=== PATIENT | female | born 1950 | race Caucasian/White ===

== ENCOUNTER → 2017-12-11 | Outpatient (CLI) | payer MEDICARE ==
--- NOTE | 2017-12-11 09:19 | Diagnostic Imaging Report ---
PROCEDURE:ABDOMINAL ULTRASOUND COMPARISON:None. INDICATIONS:Abdomen Pain FINDINGS: Liver: 14.1 cm. Increased hepatic parenchymal echogenicity. No focal mass. Main portal vein: 0.8 cm. Hepatopedal flow. Gallbladder: No echogenic calculi, gallbladder wall thickening, or pericholecystic fluid. A 0.4 cm echogenic focus is noted in the anterior gallbladder wall that is non-shadowing and non-mobile. Common Bile Duct: 3.0 mm. No echogenic filling defect. Sonographic Laurent's sign: Negative. Right kidney: 9.4 cm. No solid or cystic mass, echogenic calculi, or hydronephrosis. Normal parenchymal echogenicity. Left kidney: 8.7 cm. No solid or cystic mass, echogenic calculi, or hydronephrosis. Normal parenchymal echogenicity. Focal well-circumscribed 2.5 x 2.3 x 2.3 cm anechoic cyst is present in the left kidney. Spleen: 7.9 cm. No focal mass. The pancreas and inferior vena cava were insufficiently visualized for comment secondary to overlying bowel gas. Inferior vena cava: Normal. Ascites: None. CONCLUSION: 1. No acute sonographic abnormality. 2. Gallbladder polyp. Consultation with general surgery may provide additional information for further management. 3. Hepatic steatosis. Dictated by: King Moss M.D. on 12/11/2017 at 9:21 Electronically approved by: King Moss M.D. on 12/11/2017 at 9:21
== END ==
LOC: US 08:00
PROVIDERS: ATTEND Internal Medicine
DX: Z12.31 Encounter for screening mammogram for malignant neoplasm of breast (principal); R10.9 Unspecified abdominal pain
CPT/HCPCS: 76700; 77067

== ENCOUNTER 2018-09-26 14:56 | Inpatient (IN) | payer MEDICARE ==
[~2018-09-26] VITALS: Ht 139.7 cm; Wt 45.9 kg
[2018-09-26] MEDS ORDERED: SODIUM CHLORIDE 0.9% 1000ML 1,000 ML IV STA (14:57)
--- OUTSIDE RECORDS SUMMARY | 2018-09-26 14:58 | XMS REPORT ---
Author Author [facility] Address Unknown Phone Unavailable Care Team Providers Care Paying Teller Name Role Phone Capri ROMANO Unavailable Unavailable Problems This patient has no known problems. Allergies, Adverse Reactions, Alerts This patient has no known allergies or adverse reactions. Medications This patient has no known medications. Results Test Description Test Time Test Comments Text Results Atomic Results Result Comments US ABDOMEN COMPLETE [place] [address] Patient Name: BRYAN BOOTH MR #: [id number] : 1950 Age/Sex: 67/F Req #: [id number] [facility] Physician: Ordered by: BAO ROMANO MD Report #: [id number] Location: US Room/Bed: Procedure: [id number] US/US ABDOMEN COMPLETE Exam Date: Exam Time: REPORT STATUS: Signed PROCEDURE: ABDOMINAL ULTRASOUND COMPARISON: None. INDICATIONS: Abdomen Pain FINDINGS: Liver: 14.1 cm. Increased hepatic parenchymal echogenicity. No focal mass. Main portal vein: 0.8 cm. Hepatopedal flow. Gallblad david: No echogenic calculi, gallbladder wall thickening, or pericholecystic fluid. A 0.4 cm echogenic focus is noted in the anterior gallbladder wall that is non-shadowing and non-mobile. Common Bile Duct: 3.0 mm. No echogenic filling defect. Sonographic Laurent's sign: Negative. Right kidney: 9.4 cm. No solid or cystic mass, echogenic calculi, or hydronephrosis. Normal parenchymal echogenicity. Left kidney: 8.7 cm. No solid or cystic mass, echogenic calculi, or hydronephrosis. Normal parenchymal echogenicity. Focal well-circumscribed 2.5 x 2.3 x 2.3 cm anechoic cyst is present in the left kidney. Spleen: 7.9 cm. No focal mass. The pancreas and inferior vena cava were insufficiently visualized for comment secondary to overlying bowel gas. Inferior vena cava: Normal. Ascites: None. CONCLUSION: 1. No acute sonographic abnormality. 2. Gallbladder polyp. Consultation with general surgery may provide additional information for fu rther management. 3. Hepatic steatosis. Dictated by: Char Angel M.D. on 12/11/2017 at 9:21 Electronically approved by: Char Angel M.D. on 12/11/2017 at 9:21 Dictated By: CHAR ANGEL MD 0 Transcribed By: MARIA G on 12/11/17920 COPY TO: BAO ROMANO MD MAMMOGRAPHY DIGITAL SCR BILAT [place] [address] Patient Name: BRYAN BOOTH MR #: [id number] : 1950 Age/Sex: 67/F Req #: [id number] Adm Physician: Ordered by: BAO ROMANO MD Report #: [id number] Location: US Room/Bed: Procedure: [id number] MG/MAMMOGRAPHY DIGITAL SCR BILAT Exam Date: 12/11/17 Exam Time: 904 REPORT STATUS: Signed #[id number] - [id number] #BILATERAL DIGITAL SCREENING MAMMOGRAM WITH CAD: 12/11/2017 CLINICAL: Routine screening. No prior exams were available for comparison. Current study contains 4 films. There are scattered fibroglandular elements in both breasts. Current study was also evaluated with a Computer Aided Detection (CAD) system. There are benign vascular calcifications and calcifications in both breasts. No significant masses, calcifications, or other findings are seen in either breast. IMPRESSION: BENIGN There is no mammographic evidence of malignancy. A 1 year screening mammogram is recommended. The patient will be notified by letter of the results. Cecilia varela/camlio:12/28/2017 07:29:56 Publicity Agent: Martha SEGAL)(M), [facility] letter sent: Normal Exam Mammogram BI-RADS: 2 Benign Dictated By: CECILIA HAGEN DO 8 Transcribed By: CAMILO on 12/28/17728 COPY TO: BAO ROMANO MD
[2018-09-26 16:02] LABS: BASOPHILS % 0.2 % (0.0-1.0); EOSINOPHILS # (AUTO) 0.1 (0.0-0.4); EOSINOPHILS % 0.5 % (0.0-6.0); HEMATOCRIT 40.7 % (34.2-44.1); HEMOGLOBIN 13.2 g/dL (12.0-16.0); LYMPHOCYTES # (AUTO) 2.6 (1.0-3.2); MEAN CORPUSCULAR HGB CONC 32.4 g/dL (31-35); MEAN CORPUSCULAR VOLUME 77.1 fL (81-99); MONOCYTES # (AUTO) 1.1 (0.2-0.8); MONOCYTES % 8.7 % (4.4-11.3); NEUTROPHILS % 70.1 % (38.7-80.0); PLATELET COUNT 337 x10e3/uL (140-360); RED BLOOD COUNT 5.28 x10e6/uL (3.6-5.1); RED CELL DISTRIBUTION WIDTH 15.9 % (11.7-14.4)
[2018-09-26 16:11] LABS: CLARITY,URINE SL CLOUDY (CLEAR); LEUKOCYTE ESTERASE ,URINE TRACE (NEGATIVE); NITRITE,URINE NEGATIVE (NEGATIVE)
[2018-09-26 16:12] LABS: BILIRUBIN,URINE 2+ (NEGATIVE); COLOR,URINE STRAW (YELLOW); KETONES,URINE TRACE (NEGATIVE); PROTEIN,URINE DIPSTICK 1+ (NEGATIVE); URINE UROBILINOGEN 4 mg/dL (0.2 - 1)
[2018-09-26 16:17] LABS: ALANINE AMINOTRANSFERASE 19 IU/L (0-55); ALBUMIN/GLOBULIN RATIO 0.8 (0.8-2.0); ALKALINE PHOSPHATASE 98 IU/L (40-150); AMYLASE 57 U/L (25-125); BLOOD UREA NITROGEN 11 mg/dL (7-26); BUN/CREATININE RATIO 12 (6-25); CALCIUM 9.6 mg/dL (8.4-10.2); CARBON DIOXIDE 30 mmol/L (22-29); CHLORIDE 89 mmol/L (98-107); CREATINE KINASE 28 IU/L (29-168); CREATININE, SERUM 0.92 mg/dL (0.57-1.11); EST GLOMERULAR FILTRATION RATE > 60 ML/MIN (60-); GLUCOSE 94 mg/dL (74-118); LIPASE 39 U/L (8-78); SODIUM 132 mmol/L (136-145)
[2018-09-26 16:23] LABS: MAGNESIUM 1.1 MG/DL (1.3-2.1)
[2018-09-26 16:25] LABS: BACTERIA,URINE MANY /HPF
[2018-09-26 16:26] LABS: EPITHELIAL CELLS,URINE FEW /LPF; TRANSITIONAL EPI CELLS,URINE MODERATE
--- NOTE | 2018-09-26 16:26 | NUR ---
ALVINA FROM LAB CALLED TO REPORT CRITICAL MAG LEVEL 1.1. INFORMED DR. HAWKINS WELL LETY DAS PRIMARY NURSE.
[2018-09-26] MEDS ORDERED: MAGNESIUM SULF 1GRAM/DEXTROSE 100 ML IV ONE (16:30)
[2018-09-26 16:33] LABS: B-TYPE NATRIURETIC PEPTIDE2 23.2 pg/mL (0-100)
--- NOTE | 2018-09-26 16:35 | Diagnostic Imaging Report ---
EXAMINATION: CHEST SINGLE (PORTABLE) INDICATION: Weakness. COMPARISON: None FINDINGS: TUBES and LINES: Left-sided pacemaker with leads overlying the right atrium and right ventricle. Overlying EKG leads. LUNGS: Lungs are moderately inflated. There is mild central vascular congestion without evidence of pulmonary edema. No evidence of pneumonia. PLEURA: No pleural effusion or pneumothorax. HEART AND MEDIASTINUM: The cardiomediastinal silhouette is unremarkable. BONES AND SOFT TISSUES: No acute osseous abnormality. UPPER ABDOMEN: No free air under the diaphragm. IMPRESSION: No acute radiographic abnormality. Mild central vascular congestion without evidence of pulmonary edema. Signed by: Dr. Thiago Villanueva MD on 09/26/2018 4:31 PM
[2018-09-26] MEDS ORDERED: ISOSORBIDE MONO10 MG PO (20:02)
[2018-09-26] MEDS ORDERED: VENLAFAXINE H37.5 M1 PO (20:02)
[2018-09-26] MEDS ORDERED: ELIQUIS PO (20:02)
[2018-09-26] MEDS ORDERED: LOSARTAN POTAS100 MG PO (20:02)
[2018-09-26] MEDS ORDERED: GABAPENTIN100 MG PO (20:02)
[2018-09-26] MEDS ORDERED: LISINOPRIL10 MG PO (20:02)
[2018-09-26] MEDS ORDERED: ATORVASTATIN CA20 MG PO (20:02)
[2018-09-26 22:28] VITALS: BP 162/70
[2018-09-26 22:30] VITALS: BP 162/70
--- NOTE | 2018-09-26 22:30 | NUR ---
patient is a new admit that arrived via stretcher. patient is alert and oriented. patient has been assisted into the bed, bed is in the lowest position and call gerber is within reach. will continue to monitor patient.
--- NOTE | 2018-09-27 01:00 | NUR ---
Nba Rosenthal notified of routine consultation.
[2018-09-27 04:00] VITALS: BP 137/61
--- NOTE | 2018-09-27 05:42 | NUR ---
Dr Rodrick Del Toro notified of routine consultation.
--- NOTE | 2018-09-27 06:21 | NUR ---
wound care consult has been initiated for patient due to stage 2 over sacrum.
[2018-09-27 07:43] VITALS: BP 135/63
--- NOTE | 2018-09-27 08:24 | NUR ---
Shift reports and rounds completed.V/S reviewed. Pt stable and no complaints or concerns at this time.
[2018-09-27 08:30] VITALS: BP 135/63
--- NOTE | 2018-09-27 10:33 | NUR ---
MD Dr German on unit : order for D5ns at 100cc/hr to start, WC consult. Pt picked up for MBS.
--- NOTE | 2018-09-27 10:38 | NUR ---
Called notify Wound care of consult
--- NOTE | 2018-09-27 10:46 | NUR ---
Dr Ennis notified of consult for PPM ( office spoke with Bárbara)
--- NOTE | 2018-09-27 10:50 | NUR ---
Dr Mensah notified by phone of consult for AMS Dr Rodriguez notified per office (spoke with Geoffrey) consult for poor nutritional intake
--- NOTE | 2018-09-27 11:07 | NUR ---
Speech recommending to keep patient NPO at this time. Pt current order for NPO. IV fluids to start
[2018-09-27 11:44] VITALS: BP 121/57
[2018-09-27] MEDS: DEXTROSE 5%/0.9% SOD CHL 1,000 ML IV SCH ×2 (12:00→21:17)
[2018-09-27] MEDS: CEFTRIAXONE SOD 1 GM/NS 50 ML 50 ML IV SCH ×2 (12:00→22:53)
--- NOTE | 2018-09-27 12:34 | NUR ---
1200 IV flushed and IV infiltrated. 1215 New IV inserted to left wrist 1220 IV fluids and IV ABT started to new IV Left wrist
--- NOTE | 2018-09-27 12:48 | History and Physical ---
She is a 68-year-old female patient who presented to me by the spouse and caregiver as the patient was not able to eat properly. Every time the patient tried to eat, the patient started choking and started coughing and having respiratory distress. The patient is having very poor nutrition, and her blood sugars on multiple occasions dropped down to the 40s and 60s. The patient started having decubitus ulcer. The patient has had multiple hospital admissions after her stroke. The patient had a recent permanent pacemaker placed. The patient is very malnourished, contracted and debilitated. SIGNIFICANT MEDICAL HISTORY: Diabetes mellitus, hypertension, hyperlipidemia, thyroid disease. Massive stroke in June 2018 with left-sided paresis and dysphagia. Severe GERD and UTI. PAST SURGICAL HISTORY: Urethral sling and cataract surgery. The patient had a recent permanent pacemaker placed. SOCIAL HISTORY: Denies smoking. Denies using alcohol. FAMILY HISTORY: Hypertension, hyperlipidemia. MEDICATIONS: See from the list. REVIEW OF SYSTEMS: As per history of present illness. The patient has severe weakness and difficulty eating. PHYSICAL EXAMINATION GENERAL: She is a middle-aged female patient, very cachectic and malnourished. VITAL SIGNS: Temperature 99, pulse rate 88, respirations 16, blood pressure 110/70. HEENT: Normocephalic, atraumatic. JVD absent. LUNGS: Bilateral equal air entry, no rales, no rhonchi. HEART: S1 and S2, regular. A systolic murmur is present. ABDOMEN: Soft. Bowel sounds are present. NEUROLOGIC: Nonfocal. No neurologic deficit. The patient has advanced left hemiplegia. SKIN: The patient has stage-1 sacral decubitus ulcer. LABORATORY AND INVESTIGATIONS: The patient has elevated white blood count at 13,000. Urine is showing many bacteria. Bilirubin positive. Protein positive. ADMITTING IMPRESSION AND DIAGNOSES 1. Severe protein-calorie malnutrition. 2. Oropharyngeal dysphagia secondary to cerebrovascular accident. 3. Dehydration. 4. Hypomagnesemia. 5. Cerebrovascular accident. 6. Urinary tract infection. 7. Diabetes mellitus. 8. Hypertension. 9. Permanent pacemaker placement. 10. Stage-1 sacral decubitus ulcer secondary to malnutrition. PLAN: The patient will be admitted with the above diagnoses. We will treat the patient with IV fluids and IV antibiotics. Will do modified barium swallow, speech and PT/OT eval. Possibly will be needing a PEG tube placement. Will consult GI. Job#: [id number] MH
--- NOTE | 2018-09-27 13:22 | NUR ---
Call from . Dr Rodriguez: Consent for PEG tube placement. Will do tomorrow since had MBS this am and has barium in stomach.
--- NOTE | 2018-09-27 13:29 | NUR ---
Dr Mensah on unit to see patient
--- NOTE | 2018-09-27 13:57 | Diagnostic Imaging Report ---
EXAM: Modified barium swallow with Speech Pathologist INDICATION: ^poor oral intake ^[id number] ^1030 COMPARISON: None available. RADIATION DOSE: Fluoroscopy Time: 2.3 min Dose (Kerma) Area Product: 2.43 Gycm2 Air Kerma (AK) value has been reviewed. It is below the limits set by the Radiation Protocol Committee (RPC) committee. FINDINGS: See impression IMPRESSION: Silent laryngeal penetration with all consistencies. Silent aspiration with thin, nectar, and honey thick liquids. Refer to speech pathology report for further details and recommendations. Signed by: Dr. Craig Perez M.D. on 09/27/2018 1:54 PM
--- NOTE | 2018-09-27 14:12 | NUR ---
Straight cath x1 to obtain urine specimen per Dr Mensah. 75cc of dark yellow, urine with sediment. Tolerated well. Due to void
[2018-09-27 14:17] VITALS: BP 121/57
--- NOTE | 2018-09-27 14:47 | NUR ---
SOCIAL WORK INITIAL ASSESSMENT Hand Turner to bedside to discuss plan of care with patient/family. CM/SW role and care transitions discussed. Anticipated discharge plan discussed along with duration of care. CM/SW discussed patients right to make decisions in care. CM/SW work hours given. Patient lives: IN UPSTAIRS APARTMENT WITH Admit/Transfer: VIA ED POA/Emergency contact: BETZY Current/Previous Home Health: STATES A NURSE COMES TWO TIMES A WEEK PCP/Follow-up Care: MCKINLEY Current/Previous DME: [employer] Other Services: NONE Employment Status: HOUSEWIFE Areas of Concerns: TIRED AND LETHARGIC Referral Needs: NONE Education Needs: NONE IMM/MONTES given and signed (if applicable): UPON ADMISSION Goal for discharge: RETURN HOME CM/SW left business card at the bedside with contact information. Name and number was also written on the patients whiteboard. Patient verbalized understanding of discussion. CM will follow-up with ongoing discharge and transition of care needs.
[2018-09-27] MEDS: GABAPENTIN 100 MG CAP PO SCH ×2 (15:00→21:00)
--- NOTE | 2018-09-27 15:44 | NUR ---
WOUND CARE CONSULTATION - INITIAL EVALUATION Patient admitted for Hypomagnesemia from home to ER. WC Consulted for Possible Stage II PU of Sacrum. HX: HTN, DM type 2, Hyperglycemia, Thyroid Disease, Stroke with Left Sided Weakness. LABS: WBC12.89 HGB13.2 HCT40.7 NEUT%70.1 ALB3.0 GLU94 Ramos Score 14 Alternating Pressure Air Mattress in Place Mod PUP Active. PATIENT VISIT: -Patient in bed calm, pleasant. - at bedside and very involved with her care. -Head To Toe Assessment performed and no pressure ulcers were identified. -Diapered -Perirectal Rash noted consistent with yeast with mild rubor. Currently using Calazime Barrier Cream. RECOMMENDATION: Perirectal & Perineum Rash- Yeast - Wash area with mild soap and water and pat dry thoroughly - Apply Nystatin Cream q12h and PRN Soiling. Thank you for consulting with Wound Care. Addendum: 09/27/18 at 1553 by Kristofer Montoya RN Amended: Links added.
[2018-09-27 16:21] LABS: CHOL/HDL RATIO 2.5 (3.0-3.6)
[2018-09-27 16:42] LABS: THYROID STIMULATING HORMONE 0.056 uIU/mL (0.350-4.940)
[2018-09-27 16:56] LABS: FOLATE 10.6 ng/mL (7.0-15.4)
--- NOTE | 2018-09-27 17:17 | Consultation ---
DATE OF CONSULTATION: CARDIOLOGY CONSULTATION REFERRING PHYSICIAN: Dr. Nito German. REASON FOR CONSULTATION: Management of cardiovascular disease. HISTORY OF PRESENT ILLNESS: Ms. Fernández is a 68-year-old woman with a history of hypertension, dyslipidemia, prior CVA with residual left-sided paralysis, who presents with significant weight loss, cough following attempts to eat, difficulty swallowing, issues following stroke. She is status post pacemaker placement. She has lost over 30 pounds of weight in the past several months, and she is being admitted with hypomagnesemia, electrolyte derangements, failure to thrive. She has been consulted for possible PEG-tube placement. Neurology has been consulted to further evaluate patient's CVA and dysphagia, Speech Pathology evaluating with a barium swallow confirming aspiration to all consistencies of p.o. intake. She denies any chest pain or shortness of breath currently, has no other complaints. REVIEW OF SYSTEMS: A 12-system review is negative except for as noted above. ALLERGIES: NO KNOWN DRUG ALLERGIES. PAST MEDICAL HISTORY: As per HPI. SOCIAL HISTORY: No active smoking, alcohol or drugs. Is accompanied by . Adequate social support. FAMILY HISTORY: Noncontributory. PHYSICAL EXAMINATION VITAL SIGNS: Temperature 98.8, heart rate 70, blood pressure 121/57, respiratory rate 17, O2 sat 99%. GENERAL: No acute distress. Alert. NECK: No JVD. CHEST: Clear to auscultation. CARDIOVASCULAR: Regular rate and rhythm. Normal S1 and S2. No S3 or S4. Systolic ejection murmur 1/6. Pacemaker pocket site covered with Band-Aids. ABDOMEN: Soft, nontender. EXTREMITIES: No edema. Warm distal extremities. Left-sided paresis noted. CARDIOVASCULAR MEDICATIONS: Reviewed. 1. Ceftriaxone. 2. Atorvastatin 20 mg daily. 3. Gabapentin 100 mg t.i.d. 4. Lisinopril 20 mg daily. 5. Isosorbide mononitrate 10 mg daily. 6. Was on losartan, which has been discontinued. 7. Venlafaxine 37.5 mg daily. STUDIES: Sodium 132, potassium 4, chloride 89, bicarbonate 20, BUN 11, creatinine 0.9, glucose 94. White blood cells 12.8, hemoglobin 13.2, platelets 237. AST 21, ALT 19. ASSESSMENT 1. Failure to thrive. 2. Hypomagnesemia. 3. Patient is status post permanent pacemaker placement. 4. Hypertension. 5. Dyslipidemia. 6. History of cerebrovascular accident with residual paresis and dysphagia. RECOMMENDATIONS: Given dysphagia and aspiration, antibiotic coverage and proceeding with PEG-tube placement is being considered and seems reasonable. Patient has low to moderate risk for adverse cardiovascular outcomes with PEG-tube placement. Continue current cardiovascular medications, resume antiplatelet therapy once post procedure if no bleeding issues. Will obtain echocardiogram and follow closely. Thank you, Dr. German, for the opportunity to participate in the care of Ms. Fernández. Job#: [id number]
[2018-09-27] MEDS: NYSTATIN 100,000 UNITS/GM CRM 30GM TUBE TOP SCH (17:27)
--- NOTE | 2018-09-27 17:32 | Consultation ---
DATE OF CONSULTATION: September 27, 2018 NEUROLOGY CONSULTATION HISTORY OF PRESENT ILLNESS: Ms. Fernández is a 68-year-old right hand dominant woman with multiple vascular risk factors, admitted to [facility] on September 26, 2018, with decreased oral intake, weight loss, hypoglycemia, and hypomagnesemia. A neurology consultation is requested to evaluate for encephalopathy as well as prior stroke. According to the patient's family members, Ms. Fernández has not appeared confused or disoriented over the past several days. Her does report the patient is worried and scared due to being admitted once again to the hospital. According to the patient's family members, at baseline Ms. Fernández is only oriented to person and place. Ms. Fernández had a stroke in June 2018. Residual deficits from the stroke include dysarthria, right hemiplegia, gait impairment secondary to right hemiplegia, and dysphagia. Ms. Fernández does not report a visual field cut or other disturbance, hemihypesthesia, dizziness, or confusion. Initially, Ms. Fernández was hospitalized at [facility] for her stroke for approximately 1 week. She was subsequently discharged to home. Some time later, the patient was re-admitted to [facility] for a implantation of a loop recorder. Once the loop recorder was implanted, the patient was discharged to home. According to the patient's , there was a malfunction in the loop recorder. Approximately 1 week ago, the patient was re-admitted to [facility] for pacemaker placement. After 2 days, the patient was discharged to home. Since being discharged to home for her stroke in June 2018, the patient has received only 2 to 3 sessions of both physical and occupational therapy with each session lasting only 15 to 20 minutes each. The patient was never evaluated or treated by a speech therapist through [facility]. Ms. Fernández does not report spending any time in either a penitentiary facility or an inpatient rehabilitation facility following her stroke in June 2018. REVIEW OF SYSTEMS: Decreased oral intake, dysphagia, urinary frequency and urgency, confusion, dysarthria, left facial weakness, weakness of the left arm and left leg, impairment of balance and gait. Otherwise, the 12 point review of systems is negative. PAST MEDICAL HISTORY: Hypertension, hyperlipidemia, diabetes mellitus, heart block, thyroid disease, peptic ulcer disease, abdominal hernia, depression, and stroke with deficits as detailed in the history of present illness. PAST SURGICAL HISTORY: Partial resection of the small intestine, pacemaker placement. PAST HOSPITALIZATIONS: Surgeries/procedures as listed, stroke. FAMILY MEDICAL HISTORY: The patient's paternal and maternal grandparents are . Their medical histories are unknown. The patient's father is from complications of Alzheimer's disease. He had melanoma and lymphoma as well. The patient's mother is alive and has hypertension. Ms. Fernández had 4 siblings, 2 brothers and 2 sisters. Both brothers are alive. One brother has heart disease and is status post pacemaker placement. The second brother is healthy. One sister is alive and healthy. The second sister is from bone cancer. Ms. Fernández had 2 children, a son and a daughter, both of whom are . The son in a motor vehicle accident. The daughter from an opioid overdose. SOCIAL HISTORY: Ms. Fernández is . She is not employed. The patient does not report current or prior tobacco, alcohol, or recreational drug use. HOME MEDICATIONS: Eliquis 2.5 mg by mouth twice daily, isosorbide mononitrate 10 mg by mouth daily, lisinopril 10 mg by mouth daily, losartan 100 mg by mouth daily, atorvastatin 20 mg by mouth daily, gabapentin 100 mg by mouth three times daily, venlafaxine 37.5 mg by mouth daily. ALLERGIES: NO KNOWN DRUG ALLERGIES. NO KNOWN FOOD ALLERGIES. NO KNOWN ALLERGIES TO LATEX. NO KNOWN ALLERGIES TO IODINE OR OTHER CONTRAST MATERIALS. PHYSICAL EXAMINATION: VITAL SIGNS: Height 55 inches, weight 96 pounds. BMI 22.3 kg per meter squared. Blood pressure 121/57 mmHg. Pulse 70 beats per minute. Respiratory rate 17 breaths per minute. Oxygen saturation 99% on room air. GENERAL: The patient is awake and alert, does not appear distressed. Thin. Sallow complexion. HEENT: Normocephalic, atraumatic. Pupils are equal, round, and reactive to light. Moist mucous membranes. NECK: Supple. No appreciable thyromegaly. No appreciable carotid bruits. CARDIOVASCULAR: S1, S2, regular rate and rhythm. No murmurs, rubs, or gallops. RESPIRATORY: Clear to auscultation bilaterally. No wheezes, rhonchi, or rales. EXTREMITIES: The skin is warm and dry. No clubbing, cyanosis, or edema. The posterior tibial and dorsalis pedis pulses are 1+ and symmetric. SKIN: No rashes or lesions. NEUROLOGIC: Memory/Attention: The patient is awake and alert, oriented to person, place, not time, and minimally to situation. Cranial Nerves: Cranial nerve 1--Not tested. Cranial nerve 2, 3, 4, and 6--Pupils are equal and round, react briskly to light (from 4 mm to 2 mm). Extraocular movements intact. No nystagmus. Cranial nerve 5--Sensation to light touch is intact in the bilateral V1 through V3 distributions. Strength of the temporalis and masseter muscles is within normal limits. Cranial nerve 7--The face is asymmetric on the left as are all facial movements. There is moderate left central facial weakness. Cranial nerve 8--Hearing is intact to finger rub bilaterally. Cranial nerve 9, 10--The soft palate elevates equally and symmetrically. Cranial nerve 12--The tongue protrudes midline and moves symmetrically from side to side. Strength: Bulk is diminished throughout. The flexors in the right arm are 4+/5. The extensors in the right arm are 4/5. The flexors in the right leg are 4/5. The extensors in the right leg are 4+/5. The left arm is plegic. The left leg is 2/5. Tone is increased in the left arm and left leg. DTRs: Deep tendon reflexes are 2+ at the right tricep, bicep, brachioradialis, patella, and Achilles. Deep tendon reflexes are 3+ at the left tricep, bicep, brachioradialis, patella, and Achilles. Plantar responses are flexor on the right, extensor on the left. Sensation: Sensation is intact to light touch in both arms and both legs. Cerebellar: Oaeprw-mqnf-xjauje and heel-schrader movements are intact without dysmetria or other impairment on the right. Both elvvsh-uvaq-hiavjf and heel-schrader movements are impaired on the left, but within the bounds of paresis. Gait: Deferred. Speech: Spontaneous speech is mildly to moderately dysarthric without aphasia. Repetition is intact. Involuntary Movements: None. Pronator Drift: As per motor exam. LABORATORY DATA: The patient's comprehensive metabolic panel is significant for a sodium of 132, chloride of 89, carbon dioxide of 30, anion gap of 17.0, magnesium of 1.1, albumin of 3.0, and globulin of 3.9. Lactic acid 16.4. A repeat magnesium level is 2.0. B-natriuretic peptide 23.2. Amylase 57. Lipase 39. The CBC with differential and platelets reveals a white blood cell count of 12.89 with a right shift with 70.1% neutrophils, 20.0% lymphocytes, 8.7% monocytes, 0.5% eosinophils, and 0.2% basophils. The hemoglobin and hematocrit are 13.2 and 40.7, respectively. The platelet count is 337. PTT is 34.3. A urinalysis revealed 1+ protein, trace ketones, 2+ bilirubin, 4 urobilinogen, trace leukocyte esterase, few urine epithelials cells, moderate transitional epithelials cells, and many urine bacteria. A urine culture collected on September 26, 2018, shows no growth at 18 to 24 hours. DIAGNOSTIC STUDIES: Electrocardiogram September 26, 2018: Sinus rhythm at 98 beats per minute. Chest x-ray September 26, 2018: No acute radiographic abnormality. Mild central vascular congestion without evidence of pulmonary edema. ASSESSMENT AND PLAN: Ms. Fernández is a 68-year-old right hand dominant woman with multiple vascular risk factors including a prior stroke with deficits as described in the history of present illness, admitted to [facility] on September 26, 2018, with poor oral intake, hypomagnesemia, and possible confusion. However, per the patient's family, Ms. Fernández has remained at her baseline cognitively. A thorough neurological examination was performed with findings detailed above. The patient's laboratory data and other diagnostic studies have been reviewed and are documented above. 1. Encephalopathy: In my opinion, the patient's encephalopathy is probably secondary to her urinary tract infection. Blood and urine cultures have been collected/drawn. Results are pending. Additional blood work will be ordered to evaluate for other possible causes of metabolic encephalopathy. This blood work will include: Thyroid-stimulating hormone, vitamin B1 level, vitamin B6 level, vitamin B12 level, folate, methylmalonic acid, and rapid plasma reagin. Ms. Fernández should continue to receive intravenous antibiotics for treatment of her urinary tract infection. The use of sedative/hypnotic and pain medication should be limited as these will alter the patient's sensorium. Lastly, environmental cues should be utilized to prevent delirium. 2. Stroke: A lipid panel and hemoglobin A1c will be ordered to ensure the patient's vascular risk factors are being adequately treated. In the interim, the patient's home medications, including Eliquis 2.5 mg by mouth twice daily, will be continued. I agree with evaluation and treatment by physical and speech therapies. 3. Case Management will be consulted for discharge planning. 4. Defer treatment of the remaining medical comorbidities to the primary and other services following the patient. Thank you for this consultation. I will continue to follow the patient while she remains in the hospital. Time spent: 70 minutes. Job#: [id number] EV MTDD
[2018-09-27 20:00] VITALS: BP 146/72
--- NOTE | 2018-09-27 23:05 | NUR ---
patients blood pressure is elevated. MD notified. received new orders. will continue to monitor patient.
[2018-09-27] MEDS ORDERED: CLONIDINE HCL 0.1 MG TAB PO PRN (23:15)
[2018-09-28] VITALS (10 sets, daily range): BP systolic 118–195; BP diastolic 62–84
--- NOTE | 2018-09-28 | NUR ---
MD informed and notified of patient's inability to take PO clonidine. Received new orders for clonidine patch one time only.
--- NOTE | 2018-09-28 00:25 | NUR ---
patient's has given telephone consent for esophagogastroduodenoscopy procedure that is planned for later in the day. wants to be notified one hour before the procedure takes place.
--- NOTE | 2018-09-28 00:25 | NUR ---
Pharmacy called web content writer and informed web content writer that clonidine patch will take 2-3 days to be effective and recommend MD switch to IV form of blood pressure medication. MD notified of need to switch to IV form of medication. MD states 'stop calling me and do what I tell you to do'. Will continue to monitor patient.
[2018-09-28] MEDS ORDERED: CLONIDINE HCL 0.1 MG/24 HR 1 EA PATCH TOP ONE (00:45)
[2018-09-28] MEDS ORDERED: CLONIDINE HCL 0.1 MG/24 HR 1 EA PATCH TOP SCH (01:15)
--- NOTE | 2018-09-28 01:45 | NUR ---
patient has signed consent form for procedure that is planned for later in the day.
[2018-09-28] MEDS: NYSTATIN 100,000 UNITS/GM CRM 30GM TUBE TOP SCH ×2 (03:12→15:00)
[2018-09-28 05:58] LABS: BASOPHILS % 0.4 % (0.0-1.0); EOSINOPHILS # (AUTO) 0.1 (0.0-0.4); EOSINOPHILS % 0.9 % (0.0-6.0); HEMATOCRIT 33.5 % (34.2-44.1); HEMOGLOBIN 10.8 g/dL (12.0-16.0); LYMPHOCYTES # (AUTO) 2.8 (1.0-3.2); LYMPHOCYTES % 34.8 % (18.0-39.1); MEAN CORPUSCULAR HEMOGLOBIN 25.2 pg (28-32); MEAN CORPUSCULAR HGB CONC 32.2 g/dL (31-35); MEAN CORPUSCULAR VOLUME 78.1 fL (81-99); MONOCYTES # (AUTO) 0.7 (0.2-0.8); MONOCYTES % 8.3 % (4.4-11.3); NEUTROPHILS # (AUTO) 4.4 (2.1-6.9); NEUTROPHILS % 55.3 % (38.7-80.0); PLATELET COUNT 244 x10e3/uL (140-360); RED BLOOD COUNT 4.29 x10e6/uL (3.6-5.1); RED CELL DISTRIBUTION WIDTH 15.9 % (11.7-14.4)
[2018-09-28 06:21] LABS: ALANINE AMINOTRANSFERASE 18 IU/L (0-55); ALBUMIN 2.5 g/dL (3.5-5.0); ALBUMIN/GLOBULIN RATIO 0.8 (0.8-2.0); ALKALINE PHOSPHATASE 76 IU/L (40-150); ANION GAP 12.3 mmol/L (8-16); BLOOD UREA NITROGEN 5 mg/dL (7-26); BUN/CREATININE RATIO 8 (6-25); CALCIUM 8.5 mg/dL (8.4-10.2); CARBON DIOXIDE 27 mmol/L (22-29); CHLORIDE 96 mmol/L (98-107); CREATININE, SERUM 0.65 mg/dL (0.57-1.11); EST GLOMERULAR FILTRATION RATE > 60 ML/MIN (60-); GLUCOSE 107 mg/dL (74-118); POTASSIUM 3.3 mmol/L (3.5-5.1); SODIUM 132 mmol/L (136-145)
[2018-09-28 06:41] LABS: CHOL/HDL RATIO 2.6 (3.0-3.6)
--- NOTE | 2018-09-28 06:55 | NUR ---
Walking rounds done. Patient is awake and alert to self. Patient appears comfortable at this time. POC discussed. Patient instructed to call for assistance as needed and nodded yes. Bed in lowest position, locked, and call gerber in patients' hand.
[2018-09-28 07:01] LABS: THYROID STIMULATING HORMONE 0.082 uIU/mL (0.350-4.940)
[2018-09-28] MEDS: ATORVASTATIN 20 MG TAB PO SCH (08:40)
[2018-09-28] MEDS: GABAPENTIN 100 MG CAP PO SCH ×3 (08:40→21:00)
[2018-09-28] MEDS: ISOSORBIDE MONONITRATE 20 MG TAB PO SCH (08:40)
[2018-09-28] MEDS: VENLAFAXINE HCL 37.5MG XR CAP PO SCH (08:40)
[2018-09-28] MEDS: LISINOPRIL 10 MG TAB PO SCH (08:40)
[2018-09-28] MEDS ORDERED: LOSARTAN POTASSIUM 100 MG TAB PO SCH (09:00)
[2018-09-28] MEDS ORDERED: NON-FORMULARY MEDICATION (Isosorbide Mononitrate 10 MG) PO SCH (09:00)
--- NOTE | 2018-09-28 09:00 | NUR ---
Dr. Ennis called for elevated BP and Potassium 3.2, awaiting call back
--- NOTE | 2018-09-28 09:49 | NUR ---
ST NOTE: Pt is scheduled for peg tube placement today, requested orders for NMES to treat dysphagia and will begin treatment Monday. Handoff to LETY Hernandez
[2018-09-28] MEDS: CEFTRIAXONE SOD 1 GM/NS 50 ML 50 ML IV SCH ×2 (10:00→22:24)
[2018-09-28] MEDS: HYDRALAZINE HCL 20 MG/ML VIAL IV PRN (10:15)
--- NOTE | 2018-09-28 10:20 | NUR ---
Dr. Ennis and Dr. German making rounds. They discussed POC with patient and .
[2018-09-28] MEDS ORDERED: POTASSIUM CHLORIDE 20MEQ/100ML 200 ML IV ONE (10:30)
--- NOTE | 2018-09-28 11:41 | NUR ---
MET W THE PT AND W DR. ROMANO AT THE BEDSIDE. DR. ROMANO EXPLAINED THE PURPOSE OF TRANSITIONING THE PT TO LOWER LOC. VERBALIZED UNDERSTANDING. DISCUSSED SNF LOC AND CHOICE. ASKED IF DR. ROMANO WOULD BE FOLLOWING THE PT. DR. ROMANO STATES HE GOES TO [facility]. IN AGREEMENT IF EITHER IS IN NETWORK W THEIR INSURANCE. CHOICE LETTER WAS SIGNED AND PLACED IN CHART. COPY TO PT. ALEX MANCILLA INFORMED.
--- NOTE | 2018-09-28 11:49 | Progress Note ---
DATE: September 28, 2018 CARDIOLOGY PROGRESS NOTE SUBJECTIVE: No new complaints today. OBJECTIVE VITAL SIGNS: Temperature 96.6, heart rate 81, blood pressure 181/84, respiratory rate 14, O2 sat 99%. GENERAL: No acute distress. Alert. NECK: No JVD. CHEST: Clear to auscultation. CARDIOVASCULAR: Regular rate and rhythm. Normal S1 and S2. No S3 or S4. ABDOMEN: Soft. EXTREMITIES: No edema. Warm distal extremities. SKIN: Pale mucosa. Dry skin. Pacemaker pocket site healing scar. NEURO: Left-sided paresis and slurred speech. CARDIOVASCULAR MEDICATIONS: Reviewed. 1. Atorvastatin 20 mg daily. 2. Lisinopril 10 mg daily. 3. Hydralazine p.r.n., 10 mg IV q.4 h. added today. 4. Metoprolol p.r.n., 5 mg scheduled every 6 hours added for now as the patient is n.p.o. pending PEG tube placement for aspiration issues. 5. Ceftriaxone antibiotic. 6. D5 saline at 100 mL per hour. STUDIES: Sodium 132, potassium 3.3, chloride 96, bicarbonate 27, BUN 5, creatinine 0.65, glucose 107. White blood cells 7.9, hemoglobin 10.8, platelets 244. ASSESSMENT 1. Aspiration pneumonia. 2. Dysphagia. 3. Hypertension, uncontrolled. 4. Prior cerebrovascular accident with residual left-sided paresis. 5. Status post pacemaker placement. RECOMMENDATIONS: Continue current cardiovascular medications with the following additions: IV metoprolol and IV hydralazine for better blood pressure control pending PEG tube placement. Once PEG tube is in place and okay to use, will switch to oral. For now, continue the rest of the cardiovascular medications. Job#: [id number]
[2018-09-28] MEDS: METOPROLOL TARTRATE INJ 1 MG/ML VIAL IV SCH ×2 (12:16→18:48)
[2018-09-28] MEDS ORDERED: PROPOFOL IV EMULSION 10 MG/ML 20 ML VIAL ONE (14:22)
--- NOTE | 2018-09-28 14:39 | NUR ---
PT CHOICE FOR FOR [facility] SIGNED AND FILE DIN CHART, CALLED REP, CAME PICKED UP CLINICALS NOW WAITING ON AUTH. FOR [facility], [id number], [place], [id number].
--- NOTE | 2018-09-28 15:58 | NUR ---
[facility] IS NOT IN NETWORK, FAMILY CHOICE NOW [facility] FAXED CLINICALS AND WAITING ON AUTH.
--- NOTE | 2018-09-28 16:00 | NUR ---
Patient off unit to endo via bed with family at the bedside.
[2018-09-28] MEDS: DEXTROSE 5%/0.9% SOD CHL 1,000 ML IV SCH (16:45)
[2018-09-28] MEDS ORDERED: ONDANSETRON HCL INJ 2MG/ML 2ML 2 MG/ML VIAL ONE (17:52)
--- NOTE | 2018-09-28 18:24 | NUR ---
Patient returned from [facility], fully awake and family at the bedside. Patient c/o phlegm and suction set up to assist since it is hard for her to spit up. Call gerber within reach.
--- NOTE | 2018-09-28 18:36 | Operative Report ---
DATE OF PROCEDURE: September 28, 2018 REFERRING PHYSICIAN: Dr. Jodi Romano. PROCEDURE PERFORMED: Esophagogastroduodenoscopy and percutaneous endoscopic gastrostomy tube insertion. INDICATIONS FOR ESOPHAGOGASTRODUODENOSCOPY: Dysphagia, abnormal modified barium swallow. MEDICATION: Patient was done under MAC, please see anesthesiologist's note. PROCEDURE: With patient in left supine position, the flexible fiberoptic Olympus gastroscope was introduced into the esophagus under direct visualization without any difficulty. There was some patchy erythema noted in distal esophagus. The scope was then advanced with ease into the stomach, traversing a small sliding hiatal hernia. Mucosa overlying the antrum and the body revealed some patchy erythema. Pylorus was intubated with ease and the scope was advanced to the 2nd portion of the duodenum. It was then withdrawn slowly and several minute superficial ulcers were noted in the proximal 2nd portion as well as the duodenal bulb without active bleeding or stigmata of recent hemorrhage. The scope was then withdrawn back into the stomach and retroflexed. Mucosa overlying the fundus and the cardia appeared to be within normal limits. The scope was then straightened out and after delineation of a safe entry point per external digital palpation and transabdominal illumination, PEG tube insertion was carried out in the usual fashion. The scope was subsequently withdrawn after documenting a good positioning of the intragastric bumper. Patient tolerated the procedure well. IMPRESSION 1. Mild distal esophagitis. 2. Small sliding hiatal hernia. 3. Gastritis. 4. Duodenal ulcers, minute superficial, without active bleeding or stigmata of recent hemorrhage. PLAN: Percutaneous endoscopic gastrostomy tube insertion carried out in the usual fashion. Patient tolerated the procedure well. Gastrostomy tube to drain to gravity times 24 hours then can use. An abdominal binder will be applied to the patient. Job#: [id number] AKU cc:BAO ROMANO MD
--- NOTE | 2018-09-28 19:22 | NUR ---
report received and walking rounds complete.
--- NOTE | 2018-09-28 20:14 | NUR ---
Pt was moving around and talking a lot during vitals being performed. BP 190/75 p 141. Waited for pt to calm down and repeated BP which ws 123/67 p 126.
[2018-09-29 01:50] VITALS: BP 125/58
[2018-09-29] MEDS: METOPROLOL TARTRATE INJ 1 MG/ML VIAL IV SCH ×4 (02:11→17:51)
[2018-09-29] MEDS: NYSTATIN 100,000 UNITS/GM CRM 30GM TUBE TOP SCH ×2 (04:05→16:45)
[2018-09-29 05:15] VITALS: BP 132/65
[2018-09-29] MEDS: DEXTROSE 5%/0.9% SOD CHL 1,000 ML IV SCH (05:17)
[2018-09-29 05:26] LABS: BASOPHILS # (AUTO) 0.1 (0.0-0.1); BASOPHILS % 0.2 % (0.0-1.0); HEMATOCRIT 31.2 % (34.2-44.1); HEMOGLOBIN 10.1 g/dL (12.0-16.0); LYMPHOCYTES # (AUTO) 1.2 (1.0-3.2); LYMPHOCYTES % 3.8 % (18.0-39.1); MEAN CORPUSCULAR HEMOGLOBIN 25.6 pg (28-32); MEAN CORPUSCULAR HGB CONC 32.4 g/dL (31-35); MEAN CORPUSCULAR VOLUME 79.2 fL (81-99); MONOCYTES # (AUTO) 1.2 (0.2-0.8); MONOCYTES % 3.8 % (4.4-11.3); NEUTROPHILS # (AUTO) 28.9 (2.1-6.9); NEUTROPHILS % 91.2 % (38.7-80.0); PLATELET COUNT 244 x10e3/uL (140-360); RED BLOOD COUNT 3.94 x10e6/uL (3.6-5.1); RED CELL DISTRIBUTION WIDTH 15.9 % (11.7-14.4)
[2018-09-29 05:53] LABS: ALANINE AMINOTRANSFERASE 13 IU/L (0-55); ALBUMIN 2.1 g/dL (3.5-5.0); ALBUMIN/GLOBULIN RATIO 0.7 (0.8-2.0); ALKALINE PHOSPHATASE 64 IU/L (40-150); ANION GAP 13.2 mmol/L (8-16); BLOOD UREA NITROGEN 6 mg/dL (7-26); BUN/CREATININE RATIO 8 (6-25); CALCIUM 7.8 mg/dL (8.4-10.2); CARBON DIOXIDE 27 mmol/L (22-29); CHLORIDE 99 mmol/L (98-107); CREATININE, SERUM 0.79 mg/dL (0.57-1.11); EST GLOMERULAR FILTRATION RATE > 60 ML/MIN (60-); GLUCOSE 333 mg/dL (74-118); POTASSIUM 3.2 mmol/L (3.5-5.1); SODIUM 136 mmol/L (136-145)
[2018-09-29 06:49] LABS: ANISOCYTOSIS SLIGHT; BAND NEUTROPHILS % (MANUAL) 1 %; LYMPHOCYTES % (MANUAL) 4 % (19-48); MICROCYTOSIS SLIGHT; MONOCYTES % (MANUAL) 5 % (3.4-9.0); NEUTROPHILS % (MANUAL) 90 % (40-74); PLATELET ESTIMATE ADEQUATE; PLATELET MORPHOLOGY COMMENT NORMAL; RBC MORPHOLOGY COMMENT ABNORMAL
--- NOTE | 2018-09-29 07:23 | NUR ---
report given to day shift nurse and walking rounds received.
[2018-09-29] MEDS: ISOSORBIDE MONONITRATE 20 MG TAB PO SCH (08:25)
[2018-09-29] MEDS: VENLAFAXINE HCL 37.5MG XR CAP PO SCH (08:25)
[2018-09-29] MEDS: ATORVASTATIN 20 MG TAB PO SCH (08:26)
[2018-09-29] MEDS: LISINOPRIL 10 MG TAB PO SCH (08:26)
[2018-09-29] MEDS: GABAPENTIN 100 MG CAP PO SCH ×3 (08:26→21:00)
--- NOTE | 2018-09-29 08:26 | NUR ---
Paged Dr Segovia ( covering for Dr Carlson) to notify of elevated FSBS, WBC and potassium. Awaiting call back.
--- NOTE | 2018-09-29 08:35 | NUR ---
Spoke with with Dr Nba German: order for low dose SS and change NS to 75ml/hr
[2018-09-29 08:40] VITALS: BP 142/76
[2018-09-29] MEDS ORDERED: DEXTROSE 50% SYRINGE 50 ML IV PRN (08:45)
--- NOTE | 2018-09-29 08:55 | NUR ---
patient received 10units of Regular insulin Sq x1 per sliding scale insulin and was checked with Candice Mercado RN.
--- NOTE | 2018-09-29 09:40 | NUR ---
Report called to Ashley DAVIDSON. PT to go to room 210
--- NOTE | 2018-09-29 09:50 | NUR ---
Pt transferred to room 210. Pt stable, a&o x2 ( person, place) no complaints or concerns at this time. Nurse Ashley notified pt in room.
--- NOTE | 2018-09-29 09:55 | NUR ---
Report received from Candice, patient arrived on floor on hospital bed. Skin in tact, PEG tube in place and dressing in tact. Patient alert and oriented to self and reoriented to place and time. Patient in no distress at this time, call gerber within reach and bed in lowest position
[2018-09-29] MEDS: CEFTRIAXONE SOD 1 GM/NS 50 ML 50 ML IV SCH (10:51)
[2018-09-29] MEDS: SODIUM CHLORIDE 0.9% 1000ML 1,000 ML IV SCH ×2 (10:51→22:05)
[2018-09-29] MEDS: INSULIN REGULAR, HUMAN 100 UNIT/1 ML 3ML VIAL SQ SCH ×3 (11:30→21:00)
--- NOTE | 2018-09-29 11:38 | NUR ---
Met with patient and explained IMM letter. She stated CM needs to call her , as he signs her papers. CM called , Des Fernández [phone] and educated him on the IMM letter. He verbalized understanding and gave telephone consent/acknowledgement. Original placed on chart, and copy placed in pt folder at bedside.
[2018-09-29 13:20] VITALS: BP 139/67
[2018-09-29] MEDS ORDERED: CYANOCOBALAMIN INJ 1,000 MCG/ML VIAL IM SCH (14:00)
--- NOTE | 2018-09-29 14:18 | Progress Note ---
DATE: September 29, 2018 CARDIOLOGY PROGRESS NOTE SUBJECTIVE: Status post PEG tube. Continues to have cough with productive yellow sputum. OBJECTIVE VITAL SIGNS: Temperature 97.1, heart rate 76, blood pressure 142/76, respiratory rate 16, O2 sat 100%. GENERAL: In no acute distress. Alert. NECK: No JVD. CHEST: Clear to auscultation. CARDIOVASCULAR: Regular rate and rhythm. Normal S1 and S2. Status post pacemaker. ABDOMEN: Soft. Status post PEG tube. EXTREMITIES: No edema. Warm distal lower extremities. CARDIOVASCULAR MEDICATIONS: Reviewed. 1. Lisinopril 10 mg daily. 2. Metoprolol titrate 5 mg every 6 hours p.r.n. 3. Isosorbide mononitrate 10 mg daily. 4. Atorvastatin 20 mg at bedtime. 5. Ceftriaxone IV. STUDIES: Sodium 136, potassium 3.2, chloride 99, bicarbonate 27, BUN 6, creatinine 0.7, glucose 333. White blood cells 31.7, hemoglobin 10.1, platelets 244. ASSESSMENT 1. Aspiration pneumonitis. 2. Dysphagia, status post percutaneous endoscopic gastrostomy. 3. Hypertension. 4. Dyslipidemia. 5. Heart block. 6. Cerebrovascular accident. RECOMMENDATIONS 1. Continue current cardiovascular medications. Patient is on Eliquis per EMR, also statin and antihypertensives. 2. Antibiotics per primary service. Job#: [id number] KIMBERLY
[2018-09-29] MEDS ORDERED: POTASSIUM CHLORIDE 20MEQ/100ML 200 ML IV ONE (16:00)
[2018-09-29] MEDS ORDERED: ACETAMINOPHEN 1000 MG/100 ML IV PRN (16:45)
[2018-09-29 17:34] VITALS: BP 139/86
--- NOTE | 2018-09-29 17:37 | Diagnostic Imaging Report ---
EXAMINATION: CHEST SINGLE (PORTABLE) INDICATION: Pneumonia. COMPARISON: Chest radiograph 09/26/2018. FINDINGS: TUBES and LINES: Left-sided pacemaker device with leads overlying the right atrium and right ventricle. LUNGS: There are new multifocal patchy opacities in the right mid and lower lung zones. No evidence of pulmonary edema. PLEURA: No pleural effusion or pneumothorax. HEART AND MEDIASTINUM: The cardiomediastinal silhouette is unremarkable. BONES AND SOFT TISSUES: No acute osseous abnormality. UPPER ABDOMEN: No free air under the diaphragm. IMPRESSION: New right mid and lower lung zone opacities, consistent with pneumonia. Follow-up chest radiograph is suggested to assess for resolution. Signed by: Dr. Thiago Villanueva MD on 09/29/2018 5:34 PM
--- NOTE | 2018-09-29 19:08 | Consultation ---
DATE OF CONSULTATION: September 29, 2018 INFECTIOUS DISEASE CONSULTATION ATTENDING PHYSICIAN: Dr. Nito German. REASON FOR CONSULTATION: Sepsis. Thank you, Dr. German, for asking me to see this patient. HISTORY OF PRESENT ILLNESS: Patient is a 68-year-old woman referred for sepsis. She was admitted through the emergency department with type 1 diabetes mellitus with hypoglycemia. She was sent to the emergency department from the primary care provider's office with hypoglycemia. The patient was chocking on her food and water at home and was not eating or drinking much. At hospital, she was having diarrhea and was dehydrated. There was no fever, chills, nausea or vomiting. In the emergency department, she was noted to have temperature of 98.1 degrees Fahrenheit, pulse rate 112, respiratory rate 18, blood pressure 99/69, and oxygen saturation 99% on room air. Initial laboratory studies show blood leukocyte count of 12,890 with 70.1% neutrophils, BUN 11, creatinine 0.92 and blood glucose 94. Chest x-ray showed no acute findings. The patient was evaluated by the gastroenterology service and successfully underwent EGD with PEG tube placement yesterday. Unfortunately, the WBC count jumps to 1710. Currently, the patient reports diffuse abdominal pain. PAST MEDICAL HISTORY: Diabetes mellitus type 2, hypertension, hyperlipidemia, cerebrovascular accident with left-sided hemiplegia, dysphagia, and hypothyroidism. PAST SURGICAL HISTORY: Cataract surgery, permanent pacemaker implant, and urethral sling. ALLERGIES: NO KNOWN DRUG ALLERGIES. MEDICATIONS: The current antibiotic is Zosyn 3.375 grams IV piggyback q.8 hours. She received ceftriaxone earlier. IMMUNIZATIONS: She received influenza vaccination in May 2018. Pneumococcal vaccination status cannot be verified at this time. FAMILY HISTORY: Noncontributory. SOCIAL HISTORY: No alcohol or tobacco use. REVIEW OF SYSTEMS: As per history of present illness. There is no fever, chills, cough, shortness of breath, nausea, or vomiting. She has had diarrhea subsided to 2 or 3 loose bowel movements a day. She reports diffuse abdominal pain. PHYSICAL EXAMINATION GENERAL: No acute distress and does not appear toxic. VITAL SIGNS: T-max 99.4, pulse rate 86, respiratory rate 18, blood pressure 139/67, weight 96 pounds. HEENT: Atraumatic. There is no icterus or injection of conjunctivae. There is no ear or nasal discharge. Moist oral mucosa. No pharyngeal erythema or exudate. NECK: Supple. No meningismus. LUNGS: Good air entry bilaterally. HEART: Normal S1 and S2. ABDOMEN: Soft with diffuse tenderness. No rebound tenderness. EXTREMITIES: There is no edema, clubbing, or cyanosis. SKIN: There is excoriation of the sacrum and coccygeal area. SHIPPING AND RECEIVING ASSOCIATE: Awake, alert and oriented, but with dysphagia and left hemiplegia. LABORATORY AND DIAGNOSTIC: WBC 31,710, hemoglobin 10.1, platelets 244,000, segments 90, bands 1, lymphocytes 4, monocytes 5. BUN 6, creatinine 0.79, glucose 77. Urinalysis is negative for pyuria. Blood culture showed no growth. Urine culture also no growth. IMPRESSION 1. Questionable sepsis. 2. Dysphagia ,status post percutaneous endoscopic gastrostomy tube placement. 3. Edfw-nw-uasjvmxp malnutrition. 4. Dehydration on fluid resuscitation. 5. Late effect of stroke. 6. Diabetes mellitus type 2. 7. Hypothyroidism. PLAN 1. Check stool C. difficile DNA. 2. Verify pneumococcal vaccination status. 3. Pain control. Job#: [id number] JENNIFER
--- NOTE | 2018-09-29 19:10 | NUR ---
rounded with slot shift supervisor nurse, patient aware of change and in no distress. call gerber within reach and bed in lowest position.
--- NOTE | 2018-09-29 19:18 | NUR ---
RECEIVED PT RESTING IN BED WITH NO S/S OF DISTRESS.RESPIRATIONS EVEN/NON LABORED.PT'S IV TO LEFT FA NOTED INFILTRATED.WILL ATTEMPT TO START NEW IV.CALL LIGHT WITHIN EASY REACH.
--- NOTE | 2018-09-29 20:00 | NUR ---
IV TO LEFT FA DC'D WITH TIP INTACT. NEW IV STARTED TO RIGHT HAND 22G X 1 ATTEMPT.PT TOLERATED WELL.CALL LIGHT WITHIN EASY REACH.
[2018-09-29 21:50] VITALS: BP 139/86
[2018-09-29] MEDS: PIPER-TAZ 3.375 GM 50 ML IV SCH (21:50)
[2018-09-30] VITALS (8 sets, daily range): BP systolic 102–170; BP diastolic 57–74
--- NOTE | 2018-09-30 00:25 | NUR ---
DR AMES IN UNIT,SAW PT.N/O RECEIVED.
[2018-09-30] MEDS: METOPROLOL TARTRATE INJ 1 MG/ML VIAL IV SCH ×4 (00:50→17:34)
[2018-09-30] MEDS: NYSTATIN 100,000 UNITS/GM CRM 30GM TUBE TOP SCH ×2 (04:19→16:00)
[2018-09-30 05:07] LABS: BASOPHILS % 0.2 % (0.0-1.0); EOSINOPHILS # (AUTO) 0.1 (0.0-0.4); EOSINOPHILS % 0.6 % (0.0-6.0); HEMATOCRIT 32.9 % (34.2-44.1); HEMOGLOBIN 10.8 g/dL (12.0-16.0); LYMPHOCYTES # (AUTO) 2.2 (1.0-3.2); MEAN CORPUSCULAR HEMOGLOBIN 25.5 pg (28-32); MEAN CORPUSCULAR HGB CONC 32.8 g/dL (31-35); MEAN CORPUSCULAR VOLUME 77.6 fL (81-99); MONOCYTES # (AUTO) 0.7 (0.2-0.8); MONOCYTES % 4.3 % (4.4-11.3); NEUTROPHILS # (AUTO) 12.5 (2.1-6.9); NEUTROPHILS % 80.4 % (38.7-80.0); PLATELET COUNT 230 x10e3/uL (140-360); RED BLOOD COUNT 4.24 x10e6/uL (3.6-5.1); RED CELL DISTRIBUTION WIDTH 16.5 % (11.7-14.4)
[2018-09-30 05:27] LABS: ANION GAP 13.6 mmol/L (8-16); BLOOD UREA NITROGEN 6 mg/dL (7-26); BUN/CREATININE RATIO 9 (6-25); CALCIUM 8.4 mg/dL (8.4-10.2); CARBON DIOXIDE 27 mmol/L (22-29); CHLORIDE 98 mmol/L (98-107); CREATININE, SERUM 0.67 mg/dL (0.57-1.11); EST GLOMERULAR FILTRATION RATE > 60 ML/MIN (60-); GLUCOSE 140 mg/dL (74-118); POTASSIUM 3.6 mmol/L (3.5-5.1); SODIUM 135 mmol/L (136-145)
[2018-09-30] MEDS: PIPER-TAZ 3.375 GM 50 ML IV SCH ×3 (05:50→21:20)
--- NOTE | 2018-09-30 07:04 | NUR ---
REPORT GIVEN TO ONCOMING NURSE.WALKING ROUNDS MADE.PT RESTING IN BED WITH NO S/S OF DISTRESS.
--- NOTE | 2018-09-30 07:10 | NUR ---
RCD PT AT BED PT IS ALERT AND ORIENTED ASSESSMENT DONE PT RESTING ON BED NO SIGNS OF ANY DISTRESS NOTED IV PATENT BED LOW AND LOCKED CALL LIGHT IN REACH
[2018-09-30] MEDS: INSULIN REGULAR, HUMAN 100 UNIT/1 ML 3ML VIAL SQ SCH ×4 (07:30→21:00)
--- NOTE | 2018-09-30 08:00 | NUR ---
RESIDUAL FEED 5 ML
[2018-09-30] MEDS: ISOSORBIDE MONONITRATE 20 MG TAB PO SCH (09:00)
[2018-09-30] MEDS: VENLAFAXINE HCL 37.5MG XR CAP PO SCH (09:00)
[2018-09-30] MEDS: GABAPENTIN 100 MG CAP PO SCH ×3 (09:00→21:20)
[2018-09-30] MEDS: LISINOPRIL 10 MG TAB PO SCH (09:00)
[2018-09-30] MEDS: ATORVASTATIN 20 MG TAB PO SCH (09:00)
--- NOTE | 2018-09-30 12:00 | NUR ---
RESIDUAL FEED 4 ML
[2018-09-30] MEDS: SODIUM CHLORIDE 0.9% 1000ML 1,000 ML IV SCH (12:17)
--- NOTE | 2018-09-30 17:30 | NUR ---
RESIDUAL FEED ONLY 2 ML
--- NOTE | 2018-09-30 19:12 | NUR ---
PT RESTING ON BED BED SIDE REPORT GIVEN TO ONCOMING NURSE
--- NOTE | 2018-09-30 19:40 | Progress Note ---
DATE: September 30, 2018 CARDIOLOGY PROGRESS NOTE SUBJECTIVE: No new complaints. OBJECTIVE VITAL SIGNS: Temperature 97.2, heart rate 78, respiratory rate 18, blood pressure 126/57, O2 sat 98% on nasal cannula 2 liters per minute. GENERAL: In no acute distress, alert. NECK: No JVD. CHEST: Clear to auscultation. CARDIOVASCULAR: Regular rate and rhythm. Normal S1 and S2. ABDOMEN: Soft. PEG tube in place. EXTREMITIES: No edema. CARDIOVASCULAR MEDICATIONS: Reviewed. 1. Metoprolol tartrate 5 mg every 6 hours IV, transition to p.o. today. 2. Zosyn antibiotics. 3. Lisinopril 2 mg daily. 4. Atorvastatin 200 mg q.h.s. 5. Hydralazine p.r.n. STUDIES: Reviewed. White blood cells 15.4 down from 31,700, hemoglobin 10.8, platelets 230. Most recent creatinine is 0.67. TELEMETRY: Normal sinus rhythm. ASSESSMENT 1. Cerebrovascular accident with left-sided hemiparesis. 2. Heart block, status post pacemaker. 3. Dyslipidemia. 4. Hypertension. 5. Dysphagia, status post percutaneous endoscopic gastrostomy tube placement. 6. Aspiration pneumonitis. RECOMMENDATIONS: Continue current cardiovascular medications with transition to orals. Patient previously on Eliquis, has been continued. Job#: [id number] ANT
--- NOTE | 2018-09-30 19:48 | NUR ---
PT IS RESTING IN BED WITH AT BEDSIDE. NO RESPIRATORY DISTRESS NOTED. BED IN THE LOWEST POSITION, LOCKED, BED ALARM ON, AND CALL LIGHT WITHIN REACH. WILL CONTINUE TO MONITOR.
[2018-09-30] MEDS: METOPROLOL TARTRATE 25 MG TAB PO SCH (21:19)
[2018-09-30] MEDS: APIXAB 2.5 MG TABLET PO SCH (21:19)
--- NOTE | 2018-09-30 21:19 | NUR ---
RESIDUAL 40ML. WILL CONTINUE TO MONITOR.
[2018-10-01] VITALS (7 sets, daily range): BP systolic 124–183; BP diastolic 56–78
--- NOTE | 2018-10-01 00:09 | NUR ---
PER DR Malika AMES INCREASE PT TUBE FEEDING TO 45ML/HR. WILL CONTINUE TO MONITOR.
[2018-10-01] MEDS: SODIUM CHLORIDE 0.9% 1000ML 1,000 ML IV SCH (01:25)
[2018-10-01] MEDS: NYSTATIN 100,000 UNITS/GM CRM 30GM TUBE TOP SCH ×2 (03:50→16:40)
[2018-10-01] MEDS: PIPER-TAZ 3.375 GM 50 ML IV SCH ×3 (05:44→22:00)
[2018-10-01 06:06] LABS: ALANINE AMINOTRANSFERASE 9 IU/L (0-55); ALBUMIN/GLOBULIN RATIO 0.7 (0.8-2.0); ALKALINE PHOSPHATASE 76 IU/L (40-150); ANION GAP 11.2 mmol/L (8-16); BLOOD UREA NITROGEN 7 mg/dL (7-26); BUN/CREATININE RATIO 11 (6-25); CARBON DIOXIDE 27 mmol/L (22-29); CHLORIDE 99 mmol/L (98-107); CREATININE, SERUM 0.65 mg/dL (0.57-1.11); EST GLOMERULAR FILTRATION RATE > 60 ML/MIN (60-); GLUCOSE 157 mg/dL (74-118); POTASSIUM 3.2 mmol/L (3.5-5.1); SODIUM 134 mmol/L (136-145)
--- NOTE | 2018-10-01 07:05 | NUR ---
Received patient mid fowlers position, side rails upx3, call light within reach.Placed bed alarm. AAOX2 to person and place. Respirations even and unlabored. O2 3L NC. Instructed patient to use call light for assistance. Voiced understanding.
[2018-10-01] MEDS: INSULIN REGULAR, HUMAN 100 UNIT/1 ML 3ML VIAL SQ SCH ×4 (07:30→21:15)
[2018-10-01] MEDS: LISINOPRIL 10 MG TAB PO SCH (09:00)
[2018-10-01] MEDS ORDERED: APIXAB 2.5 MG TABLET PO SCH (09:00)
[2018-10-01] MEDS: VENLAFAXINE HCL 37.5MG XR CAP PO SCH (09:00)
[2018-10-01] MEDS: APIXAB 2.5 MG TABLET PO SCH ×2 (09:00→16:54)
[2018-10-01] MEDS: GABAPENTIN 100 MG CAP PO SCH ×3 (09:00→21:15)
[2018-10-01] MEDS: ISOSORBIDE MONONITRATE 20 MG TAB PO SCH (09:00)
[2018-10-01] MEDS: ATORVASTATIN 20 MG TAB PO SCH (09:00)
[2018-10-01] MEDS ORDERED: METOPROLOL SUCCINATE 25 MG TAB XL PO SCH (09:00)
[2018-10-01] MEDS ORDERED: POTASSIUM CHLORIDE 10MEQ EA PO ONE (11:00)
[2018-10-01] MEDS: HYDRALAZINE HCL 20 MG/ML VIAL IV PRN (12:30)
--- NOTE | 2018-10-01 13:03 | NUR ---
WOUND CARE CONSULTATION - FOLLOW UP Patient admitted for Hypomagnesemia from home to ER. WC Consulted for Possible Stage II PU of Sacrum. HX: HTN, DM type 2, Hyperglycemia, Thyroid Disease, Stroke with Left Sided Weakness. LABS: WBC12.89 HGB13.2 HCT40.7 NEUT%70.1 ALB3.0 GLU94 Ramos Score 14 Alternating Pressure Air Mattress in Place Mod PUP Active. PATIENT VISIT: -Patient in bed calm, pleasant. - at bedside and very involved with her care. -Head To Toe Assessment performed and no pressure ulcers were identified. -Sacral - Skin indentation 0.5x0.3x0.2- Healed/ 100% epithelialization [place]. -Diapered - Mild rubor, no rash. Yeast resolving. RECOMMENDATION: Continue Current Treatment Plan: Perirectal & Perineum Rash- Yeast - Wash area with mild soap and water and pat dry thoroughly - Apply Nystatin Cream q12h and PRN Soiling. Addendum: 10/01/18 at 1306 by Kristofer Montoya RN Amended: Links added.
--- NOTE | 2018-10-01 14:59 | NUR ---
PT ORIGINAL CHOICE IS IN NETWORK FOR [facility] WILL CONTINUE WITH REFERRAL TO [facility]. FAXED CLINICALS TO [facility] AT [phone]
--- NOTE | 2018-10-01 16:00 | NUR ---
SPOKE WITH HE WANTS ME TO CALL SISTER DEENA [phone]. CALLED AND LEFT MESSAGE FOR HER TO RETURN CALL, STATES HE STILL HAS NOT LOOKED AT [facility], WANTS TO LOOK AT [facility]. WAITING ON HIM TO LET KNOW 1ST THING IN MORNING ON DECISION.
--- NOTE | 2018-10-01 16:47 | NUR ---
Nutrition Intervention Note RD Recommendation(s) for Physician: The patient meets criteria for MODERATE protein-calorie malnutrition. -Rec continuous TF with Glucerna 1.2 @45mL/hr, providing 1296kcal, 65g protein, and 870mL water. meet 100% of est protein and calorie needs -Rec water flushes of 100mL q 6 hr; additional water per MD discretion -Check daily labs, GI tolerance and weight Plan of Care: RD following, monitoring for tolerance and adequacy, TF rec Nutrition reason for involvement: New TF RD Assessment 10/01 68yo F, who was admitted for dysphagia. Pt has had swallowing difficulty since her stroke in Jun 2018. In the last 3 months, pt has lost ~15lbs with decreased food intake. Pt appeared contracted and debilitated. PEG was placed on 09/29/2018. TF was running at 30mL/hr (tolerated well per RN). Verified her height with her . Based on her height and current weight, her BMI is WNL. No physical sign of muscle and fat loss upon NFPA. No complain of nausea or vomiting during my visit. RD rec to increase current TF to 45mL/hr to adequately meet her needs. Will continue to monitor and follow. Principal Problems/Diagnoses: 1. Cerebrovascular accident with left-sided hemiparesis. 2. Heart block, status post pacemaker. 3. Dyslipidemia. 4. Hypertension. 5. Dysphagia, status post percutaneous endoscopic gastrostomy tube placement. 6. Aspiration pneumonitis. PMH: Diabetes mellitus, hypertension, hyperlipidemia, thyroid disease. Massive stroke in June 2018 with left-sided paresis and dysphagia. Severe GERD and UTI. GI: abdomen soft, round, flatus present Skin: no pressure ulcer, per wound care notes Labs: (10/01) Na 134 L, K 3.2 L, Glucose 172 H Meds: insulin, eliquis, lipitor, NaCl Ht: 55in Wt: 103lb BMI: 24.8kg/m2 IBW: 75lbs Malnutrition Evaluation (10/01/18) The patient meets criteria for MODERATE protein-calorie malnutrition. Energy intake: <75% of estimated energy requirements for >3 months Weight loss: >7.5% in 3 months (Acute) Fat loss: None Muscle loss: None Supporting Evidence: Fluid accumulation: Unable to evaluate Functional Status: measurable reduced after stroke Nutrition Prescription (Diet Order): Glucerna 1.2 @30mL/hr Estimated Nutritional Needs: Calories: 1175 1410kcal (25-30kcal/kg/d) Weight used: Actual BW Protein: 47 71g (1-1.5g/kg/d) Weight used: Actual BW Diet Adequacy: Not meeting calorie needs, Not meeting protein needs Diet Education Needs Assessment: Diet education not indicated. Nutrition Care Level: mod (new TF) Nutrition Diagnosis: Swallowing difficulty related to CVA as evidenced by pt requiring TF as main source of nutrition. Goal: Patient will meet 75-100% of estimated needs by follow up Progress: Progressing Interventions: Composition, Rate, Route Monitoring/Evaluation: Total energy intake, Total protein intake, Formula/Solution, Weight change Signed: Dot Pandya MS, RD, LD
--- NOTE | 2018-10-01 18:36 | Progress Note ---
DATE: CARDIOLOGY PROGRESS NOTE SUBJECTIVE: No new complaints other than productive cough. Feels better. OBJECTIVE VITAL SIGNS: Temperature 98.2, heart rate 76, blood pressure 180/78, respiratory rate 18, O2 sat 99%. GENERAL: In no acute distress. Alert. NECK: No JVD. CHEST: Clear to auscultation. CARDIOVASCULAR: Regular rate and rhythm. Normal S1 and S2. ABDOMEN: Soft, nontender. Status post PEG tube. EXTREMITIES: No edema. Warm distal extremities. CARDIOVASCULAR MEDICATIONS: Reviewed. 1. Eliquis 2.5 mg every 12 hours. 2. Lisinopril 10 mg daily. 3. Metoprolol tartrate 25 mg every 12 hours. 4. Atorvastatin 20 mg nightly. STUDIES: Reviewed. Potassium 3.2, creatinine 0.65. White blood cells 15.4, hemoglobin 10.8, platelets 230. Normal transaminases. ASSESSMENT 1. Cerebrovascular accident. 2. Aspiration pneumonitis. 3. Dysphagia status post percutaneous endoscopic gastrotomy tube. 4. Failure to thrive, now status post percutaneous endoscopic gastrotomy tube 5. Hypertension. 6. Dyslipidemia. 7. Atrioventricular block status post pacemaker placement. RECOMMENDATIONS: Continue current cardiovascular medications. blood pressure medication up-titration to gradually. Job#: [id number] EV MTDD
--- NOTE | 2018-10-01 19:15 | NUR ---
Bedside rounds completed with morning nurse. Pt lying in bed HOB 45 degrees. Alert to name, place, and situation. Denies pain at this time. PEG tube patent, Glucerna 1.2@45ml/hr. No acute distress noted. Call gerber within reach. Bed low and locked. Will continue to monitor.
--- NOTE | 2018-10-01 19:25 | NUR ---
Report given to oncoming nurse of patients status. No s/s of acute distress noted.
[2018-10-01] MEDS: METOPROLOL TARTRATE 25 MG TAB PO SCH (21:15)
[2018-10-02] VITALS (8 sets, daily range): BP systolic 112–174; BP diastolic 56–77
--- NOTE | 2018-10-02 02:30 | NUR ---
BS rounds completed with Dr. Malika Razo. Ordered an increase PEG feeding, Glucerna 1.2 @50ml/hr. Ordered dietary evaluation.
[2018-10-02] MEDS: NYSTATIN 100,000 UNITS/GM CRM 30GM TUBE TOP SCH ×2 (04:00→15:10)
[2018-10-02] MEDS: SODIUM CHLORIDE 0.9% 1000ML 1,000 ML IV SCH (04:35)
[2018-10-02 05:57] LABS: BASOPHILS % 0.3 % (0.0-1.0); EOSINOPHILS # (AUTO) 0.2 (0.0-0.4); EOSINOPHILS % 1.8 % (0.0-6.0); HEMATOCRIT 25.5 % (34.2-44.1); HEMOGLOBIN 8.3 g/dL (12.0-16.0); LYMPHOCYTES # (AUTO) 2.4 (1.0-3.2); LYMPHOCYTES % 25.4 % (18.0-39.1); MEAN CORPUSCULAR HEMOGLOBIN 25.5 pg (28-32); MEAN CORPUSCULAR HGB CONC 32.5 g/dL (31-35); MEAN CORPUSCULAR VOLUME 78.2 fL (81-99); MONOCYTES # (AUTO) 0.6 (0.2-0.8); MONOCYTES % 5.9 % (4.4-11.3); NEUTROPHILS # (AUTO) 6.3 (2.1-6.9); NEUTROPHILS % 66.1 % (38.7-80.0); PLATELET COUNT 214 x10e3/uL (140-360); RED BLOOD COUNT 3.26 x10e6/uL (3.6-5.1); RED CELL DISTRIBUTION WIDTH 16.4 % (11.7-14.4)
[2018-10-02] MEDS: PIPER-TAZ 3.375 GM 50 ML IV SCH ×3 (05:59→22:00)
[2018-10-02 06:34] LABS: ALANINE AMINOTRANSFERASE 8 IU/L (0-55); ALBUMIN/GLOBULIN RATIO 0.7 (0.8-2.0); ALKALINE PHOSPHATASE 64 IU/L (40-150); ANION GAP 10.2 mmol/L (8-16); BLOOD UREA NITROGEN 7 mg/dL (7-26); BUN/CREATININE RATIO 11 (6-25); CARBON DIOXIDE 28 mmol/L (22-29); CHLORIDE 98 mmol/L (98-107); CREATININE, SERUM 0.63 mg/dL (0.57-1.11); EST GLOMERULAR FILTRATION RATE > 60 ML/MIN (60-); GLUCOSE 133 mg/dL (74-118); POTASSIUM 3.2 mmol/L (3.5-5.1); SODIUM 133 mmol/L (136-145)
[2018-10-02] MEDS: INSULIN REGULAR, HUMAN 100 UNIT/1 ML 3ML VIAL SQ SCH ×4 (08:00→20:15)
[2018-10-02] MEDS: ATORVASTATIN 20 MG TAB PO SCH (08:29)
[2018-10-02] MEDS: ISOSORBIDE MONONITRATE 20 MG TAB PO SCH (08:29)
[2018-10-02] MEDS: VENLAFAXINE HCL 37.5MG XR CAP PO SCH (08:29)
[2018-10-02] MEDS: APIXAB 2.5 MG TABLET PO SCH ×2 (08:29→16:00)
[2018-10-02] MEDS: LISINOPRIL 10 MG TAB PO SCH (08:30)
[2018-10-02] MEDS: GABAPENTIN 100 MG CAP PO SCH ×3 (08:30→20:23)
[2018-10-02] MEDS ORDERED: POTASSIUM CHLORIDE 10MEQ EA PO ONE (11:00)
--- NOTE | 2018-10-02 11:07 | NUR ---
paged , V to notify of magnesium 0.8. Awaiting for call back
--- NOTE | 2018-10-02 11:37 | NUR ---
Repaged Dr.Patel Zapata to notify of magnesium level
--- NOTE | 2018-10-02 12:27 | NUR ---
Paged Dr.M Rodriguez to notify of magnesium 0.8
[2018-10-02] MEDS ORDERED: MAGNESIUM SULFATE 2GM/50ML 50 ML IV ONE (12:30)
--- NOTE | 2018-10-02 12:40 | NUR ---
Capri Payan aware of magnesium levels. See orders.
--- NOTE | 2018-10-02 15:40 | NUR ---
SPOKE WITH [facility] AT [facility] IS REQUESTING ADDITIONAL PT NOTES PRINTED AND FAXED TO [facility], ALSO GAVE SISTER RUSTI INFORMATION PER REQUEST.
--- NOTE | 2018-10-02 15:41 | NUR ---
PASRR COMPLETED FILED IN CHART WITH POST DISCHARGE FORM. RTF COMPLETED AND GIVEN TO FOUR H CLUB AGENT FOR TRANSFER COMPLETION WHEN ROOM IS RECEIVED.
--- NOTE | 2018-10-02 19:26 | NUR ---
Walking rounds done, bedside report given. NO s/s of acute distress noted.
--- NOTE | 2018-10-02 19:29 | Progress Note ---
DATE: October 02, 2018 CARDIOLOGY PROGRESS NOTE SUBJECTIVE: No complaints. PHYSICAL EXAMINATION: VITAL SIGNS: Temperature 96.6, heart rate 67, respiratory rate 20, blood pressure 112/56, O2 sat 97% on 2 liters per minute nasal cannula. GENERAL: In no acute distress, alert. NECK: No JVD. CHEST: Clear to auscultation. CARDIOVASCULAR: Regular rate and rhythm. Normal S1 and S2. ABDOMEN: Soft, nontender. PEG tube in place with feeds going. EXTREMITIES: No edema. Left hemiparesis. CARDIOVASCULAR MEDICATIONS: Reviewed. Eliquis 2.5 mg every 12 hours, lisinopril 10 mg daily, isosorbide mononitrate 10 mg daily, atorvastatin 20 mg daily, metoprolol tartrate 25 mg every 12 hours, hydralazine p.r.n. STUDIES: Reviewed. White blood cells 9.5, hemoglobin 8.3, platelets 214,000. Glucose 141, creatinine is 0.6. Blood cultures negative times 72 hours. TELEMETRY: In sinus rhythm. ASSESSMENT: 1. Cerebrovascular accident. 2. Aspiration pneumonitis. 3. Dysphagia, status post percutaneous endoscopic gastrostomy tube. 4. Hypertension. 5. Dyslipidemia. 6. Atrioventricular block, status post pacemaker placement. RECOMMENDATIONS: Continue current cardiovascular medications. Blood pressure is well controlled today. Job#: [id number]
--- NOTE | 2018-10-02 19:41 | NUR ---
Received change of shift report from AM nurse. Bedside report received.
[2018-10-02] MEDS: METOPROLOL TARTRATE 25 MG TAB PO SCH (20:23)
--- NOTE | 2018-10-02 22:43 | NUR ---
Patient in bed on left side. Q2 turns. AAOx2-3. Patient denies pain at this time. O2 3L n/c. Tele #[id number] SR [id number]. Glucerna 1.2 at 50cc/hr Residuals at 30. Patient denies pain at this time. Continue monitor.
[2018-10-03] VITALS: BP 148/67
[2018-10-03] MEDS: SODIUM CHLORIDE 0.9% 1000ML 1,000 ML IV SCH (00:17)
--- NOTE | 2018-10-03 00:33 | NUR ---
Patient resting quitly at this time. Continue monitor.
[2018-10-03 04:00] VITALS: BP 141/63
[2018-10-03] MEDS: NYSTATIN 100,000 UNITS/GM CRM 30GM TUBE TOP SCH (04:00)
[2018-10-03] MEDS: PIPER-TAZ 3.375 GM 50 ML IV SCH ×2 (05:08→14:00)
[2018-10-03 05:49] LABS: ANION GAP 9.5 mmol/L (8-16); BLOOD UREA NITROGEN 7 mg/dL (7-26); BUN/CREATININE RATIO 12 (6-25); CALCIUM 8.4 mg/dL (8.4-10.2); CARBON DIOXIDE 28 mmol/L (22-29); CHLORIDE 96 mmol/L (98-107); EST GLOMERULAR FILTRATION RATE > 60 ML/MIN (60-); GLUCOSE 147 mg/dL (74-118); POTASSIUM 3.5 mmol/L (3.5-5.1); SODIUM 130 mmol/L (136-145)
--- NOTE | 2018-10-03 07:10 | NUR ---
Change of shift report given to incoming nurse.
[2018-10-03 07:53] VITALS: BP 149/59
[2018-10-03] MEDS: APIXAB 2.5 MG TABLET PO SCH (09:01)
[2018-10-03] MEDS: VENLAFAXINE HCL 37.5MG XR CAP PO SCH (09:01)
[2018-10-03] MEDS: LISINOPRIL 10 MG TAB PO SCH (09:02)
[2018-10-03] MEDS: ATORVASTATIN 20 MG TAB PO SCH (09:02)
[2018-10-03] MEDS: GABAPENTIN 100 MG CAP PO SCH ×2 (09:02→15:43)
[2018-10-03] MEDS: ISOSORBIDE MONONITRATE 20 MG TAB PO SCH (09:02)
[2018-10-03] MEDS: INSULIN REGULAR, HUMAN 100 UNIT/1 ML 3ML VIAL SQ SCH ×2 (09:18→11:30)
--- NOTE | 2018-10-03 09:29 | NUR ---
IMM delivered and explained to pt. She verbalized understanding. Stated her Des Fernández signs all her paperwork. CM called and left for Mr. Fernández.
[2018-10-03 10:26] VITALS: BP 149/59
[2018-10-03] MEDS ORDERED: MAGNESIUM OXIDE 400 MG TAB PO ONE (10:30)
[2018-10-03 10:38] LABS: BASOPHILS % 0.4 % (0.0-1.0); EOSINOPHILS # (AUTO) 0.2 (0.0-0.4); HEMOGLOBIN 8.6 g/dL (12.0-16.0); LYMPHOCYTES # (AUTO) 1.9 (1.0-3.2); LYMPHOCYTES % 20.8 % (18.0-39.1); MEAN CORPUSCULAR HEMOGLOBIN 25.2 pg (28-32); MEAN CORPUSCULAR HGB CONC 31.9 g/dL (31-35); MEAN CORPUSCULAR VOLUME 79.2 fL (81-99); MONOCYTES # (AUTO) 0.6 (0.2-0.8); MONOCYTES % 6.9 % (4.4-11.3); NEUTROPHILS # (AUTO) 6.2 (2.1-6.9); NEUTROPHILS % 69.5 % (38.7-80.0); PLATELET COUNT 248 x10e3/uL (140-360); RED BLOOD COUNT 3.41 x10e6/uL (3.6-5.1); RED CELL DISTRIBUTION WIDTH 16.8 % (11.7-14.4)
--- NOTE | 2018-10-03 10:52 | Discharge Summary ---
This 68-year-old female patient of mine presented to the emergency room with severe malnutrition, dysphagia, weakness and unable to eat. The patient was having decubitus ulcers. ADMITTING IMPRESSION AND DIAGNOSES 1. Severe protein-calorie malnutrition secondary to oropharyngeal dysphagia because of recent stroke. 2. Dehydration. 3. Hypomagnesemia. 4. Urinary tract infection. 5. Diabetes. 6. Hypertensive heart disease. 7. Sacral stage-1 decubitus ulcer. 8. Permanent pacemaker placement. 9. Atrial fibrillation. HOSPITAL COURSE SUMMARY: The patient was admitted with the above diagnoses. The patient was treated with IV antibiotic and IV fluids. The patient was given modified barium swallow and speech eval. Neuro, GI and cardiology evaluations were done. The patient was given IV antibiotic Zosyn. The patient is on Eliquis. The patient had hypokalemia and hypomagnesemia, and potassium and magnesium supplements were done. The patient had a PEG tube placed, and PEG-tube feeding was started. Now upon stabilization, the patient needs further outpatient wound care, PEG-tube feeding, PT, OT and speech therapy. On endoscopy, the patient was found to have a duodenal ulcer and gastritis. Will start the patient on Protonix. Will start the patient on Prevacid. BAO ROMANO MD Job#: [id number]
--- NOTE | 2018-10-03 11:00 | NUR ---
paged to report Hgb 8.6 this am.
--- NOTE | 2018-10-03 11:30 | NUR ---
PATIENT AT BEDSIDE AWARE OF PENDING DISCHARGE TO [facility] TODAY. STATES HE WILL COLLECT PATIENTS BELONGING TO TAKE HOME.
[2018-10-03 11:39] VITALS: BP 131/71
--- NOTE | 2018-10-03 12:40 | NUR ---
Pt's Des Fernández at bedside. Explained IMM letter. Signed letter filed in chart. Copy placed in transition of care folder. Business card left for any questions/concerns. Pt to transfer to SNF today [facility] [address] [place] [id number] Vivek German to attend
--- NOTE | 2018-10-03 12:50 | NUR ---
REPORT CALLED TO JEANINE DAVIDSON AT [facility], PATIENT TO ADMIT TO ROOM 306A.
--- NOTE | 2018-10-03 15:49 | NUR ---
pt d/c via stretcher EMS to [facility]. all personal belongings with patient and at time of d/c. PIV to right hand for continued IV antibiotics at SNF. monitoring and evaluation advisor removed.
--- NOTE | 2018-10-03 23:32 | Progress Note ---
DATE: October 03, 2018 CARDIOLOGY PROGRESS NOTE SUBJECTIVE: No complaints. PHYSICAL EXAMINATION: VITAL SIGNS: Temperature 96.9, heart rate 90, blood pressure 131/71, respiratory rate 19, and O2 sat 99%. GENERAL: In no acute distress, alert. NECK: No JVD. CHEST: Clear to auscultation. CARDIOVASCULAR: Regular rate and rhythm. Normal S1 and S2. ABDOMEN: Soft. EXTREMITIES: No edema. PEG tube in place. Left-sided hemiparesis. CARDIOVASCULAR MEDICATIONS: Reviewed. Zosyn, atorvastatin, isosorbide mononitrate, metoprolol tartrate, Eliquis, and lisinopril. STUDIES: Reviewed. Potassium 3.5, creatinine 6. Hemoglobin 8.6, platelets 248,000. ASSESSMENT 1. Cerebrovascular accident. 2. Dysphagia, status post percutaneous endoscopic gastrostomy tube. 4. Aspiration pneumonia. 5. Atrioventricular block, status post pacemaker placement. 6. Hypertension and dyslipidemia. RECOMMENDATIONS: Continue current cardiovascular medications. evaluation in 3 months. Job#: [id number]
[2018-10-04] MEDS ORDERED: PANTOPRAZOLE SOD 40 MG TABEC PO SCH (07:30)
[2018-10-04] MEDS ORDERED: POTASSIUM CHLORIDE 20 MEQ TAB CR PO SCH (09:00)
[2018-10-04] MEDS ORDERED: FOLIC ACID 1 MG TAB PO SCH (09:00)
[2018-10-04] MEDS ORDERED: POTASSIUM CHLORIDE 10MEQ EA PO SCH (09:00)
[2018-10-04] MEDS ORDERED: FERROUS SULFATE 325 MG TAB PO SCH (09:00)
== END 2018-10-03 15:56 | DRG 871 ==
LOC: ER 14:56 → ERHOLD 16:37 → IMCU 22:25 → OBSVTOIN 09-28 10:34 → MED/SURG2 09-29 09:53
PROVIDERS: ADMIT Internal Medicine; ATTEND Internal Medicine
PROC: 0DH63UZ Insertion of Feeding Device into Stomach, Percutaneous Approach (ICD-10-PCS; 2018-09-28)
PROC: 0DJ08ZZ Inspection of Upper Intestinal Tract, Via Natural or Artificial Opening Endoscopic (ICD-10-PCS; principal; 2018-09-28 16:57)
DX: A41.9 Sepsis, unspecified organism (principal); E43 Unspecified severe protein-calorie malnutrition; J69.0 Pneumonitis due to inhalation of food and vomit; G93.41 Metabolic encephalopathy; N39.0 Urinary tract infection, site not specified; I69.354 Hemiplegia and hemiparesis following cerebral infarction affecting left non-dominant side; Z68.23 Body mass index [BMI] 23.0-23.9, adult; E86.0 Dehydration; E83.42 Hypomagnesemia; Z95.0 Presence of cardiac pacemaker; L89.151 Pressure ulcer of sacral region, stage 1; R13.12 Dysphagia, oropharyngeal phase; I10 Essential (primary) hypertension; Z79.4 Long term (current) use of insulin; I69.391 Dysphagia following cerebral infarction; E11.649 Type 2 diabetes mellitus with hypoglycemia without coma; I69.398 Other sequelae of cerebral infarction; I48.91 Unspecified atrial fibrillation; Z79.01 Long term (current) use of anticoagulants; E87.6 Hypokalemia; D64.9 Anemia, unspecified; K20.9 Esophagitis, unspecified; K44.9 Diaphragmatic hernia without obstruction or gangrene; K26.9 Duodenal ulcer, unspecified as acute or chronic, without hemorrhage or perforation; R62.7 Adult failure to thrive; R26.9 Unspecified abnormalities of gait and mobility; Z79.899 Other long term (current) drug therapy
CPT/HCPCS: 36415; 43246; 71045; 74230; 80048; 80053; 80061; 81001; 82150; 82550; 82553; 82607; 82746; 82948; 83036; 83605; 83690; 83735; 83880; 83921; 84207; 84425; 84443; 84484; 85025; 85730; 86592; 87040; 87086; 87493; 93005; 93306; 96360; 97139; 99284; G0378; J0360; J0696; J2405; J2543; J3420; J3475; J3480; J7030; J7042; J7799

== ENCOUNTER 2019-03-20 12:35 | Emergency (ER) | payer MEDICARE, OTHER ==
[~2019-03-20] VITALS: Ht 134.6 cm; Wt 45.8 kg
[~2019-03-20 12:35] MED LIST: ATORVASTATIN CA20 MG PO; ELIQUIS PO; GABAPENTIN100 MG PO; ISOSORBIDE MONO10 MG PO; LISINOPRIL10 MG PO; LOSARTAN POTAS100 MG PO; VENLAFAXINE H37.5 M1 PO
--- NOTE | 2019-03-20 12:52 | NUR ---
rec'd pt in rm 11 via [facility]s for g-tube replacement. placed on the monitor and vitals taken. white tube placed in stoma to keep patent was p.o.a. bed low locked and siderails up x2
[2019-03-20] MEDS ORDERED: DIATRIZOATE MEGL/DIATRIZOA SOD 30 ML BTL PO ONE (13:18)
--- NOTE | 2019-03-20 13:48 | Diagnostic Imaging Report ---
Exam: KUB - 1 view Clinical History: Dislodged gastrostomy tube Comparison: None Findings: Contrast has been injected through the gastrostomy tube demonstrating intraluminal position in the stomach. Nonobstructive bowel gas pattern. Images are degraded by motion artifact. The lungs are not well evaluated but there is no large focal consolidation. Left chest pacemaker with leads in the right atrium and right ventricle. Degenerative changes of the lower lumbar spine. Impression: Contrast injection through the gastrostomy tube demonstrates intraluminal position in the stomach. Signed by: Bettina Guy MD on 03/20/2019 1:45 PM
--- NOTE | 2019-03-20 13:55 | NUR ---
AMS CALLED FOR TX BACK TO [facility]; ETA APPROX. 60 MIN.
--- NOTE | 2019-03-20 14:21 | NUR ---
replacement g-tube--22f (7.3mm)standard balloon replacement kit. straight bolster
--- NOTE | 2019-03-20 15:18 | NUR ---
2ND CALL TO [facility] FOR TX BACK TO [facility]; SPOKE WITH RICK. APPROX. ETA 10-20 MIN. PT CLEANED OF LARGE AMT. OF STOOL/URINE. REDNESS NOTED TO SACRUM.
--- NOTE | 2019-03-20 15:52 | NUR ---
[facility] HERE TO P-UP PT FOR TX BACK TO [facility]
== END 2019-03-20 15:52 | disposition home or self-care (01) ==
LOC: ER 12:35
DX: Z43.1 Encounter for attention to gastrostomy (principal); E11.40 Type 2 diabetes mellitus with diabetic neuropathy, unspecified; E78.5 Hyperlipidemia, unspecified; K21.9 Gastro-esophageal reflux disease without esophagitis; F41.9 Anxiety disorder, unspecified; F32.9 Major depressive disorder, single episode, unspecified
CPT/HCPCS: 74018; 99284

== ENCOUNTER 2020-05-12 08:34 | Emergency (ER) | payer OTHER ==
[~2020-05-12] VITALS: Ht 134.6 cm; Wt 45.8 kg
--- NOTE | 2020-05-12 09:22 | Emergency Department Note ---
History of Present Illnes History of Present Illness Chief Complaint: General Medicine Complaints History of Present Illness This is a 69 year old female arrived to the ED with dislodged G tube. Pt with dislodged 18 Fr tube. Chief Complaint Comment 69 Y/O FEMALE PRESENTS TO ED VIA EMS FOR C/O OF DISLOD GED PEG TUBE, ALONSO WAS INSERTED MEDICAL OFFICE SUPERVISOR BY STAFF AT [facility]. Historian: Patient, Uptwist Spinner/EMS Arrival Mode: ems EMS Treatment MEDICAL OFFICE SUPERVISOR: See EMS Report Radiation: Reports non-radiation Onset quality: gradual Duration (how long): day(s) Timing of current episode: constant Progression: unchanged Chronicity: new Past Medical/Family History Physician Review I have reviewed the patient's past medical and family history. Any updates have been documented here. Past Medical History Recent Fever: No Clinical Suspicion of Infectio: No New/Unexplained Change in Ment: No Past Medical History: Hypertension, Diabetes, CVA, Hypothyroidism, CAD, Kidney Stones, UTI's, Anemia, Anxiety, Depression, GERD, Hyperlipedemia Other Medical History: KIDNEY CYST DIABETIC NEUROPATHY DYSPHAGIA LEFT HEMIPARESIS ANGINA PECTORIS Past Surgical History: Pacer/AICD, Cataract Removal Other Surgery: BILATERAL URETHRAL STENTS G-TUBE Social History Smoking Cessation: Never Smoker Physically hurt or threatened: No Other Last Tetanus: UTD Review of Systems Review of Systems Constitutional: Reports no symptoms EENTM: Reports no symptoms Cardiovascular: Reports no symptoms Respiratory: Reports no symptoms Gastrointestinal: Reports as per HPI, Reports abdominal pain Genitourinary: Reports no symptoms Musculoskeletal: Reports no symptoms Integumentary: Reports no symptoms Neurological: Reports no symptoms Psychological: Reports no symptoms Endocrine: Reports no symptoms Hematological/Lymphatic: Reports no symptoms Physical Exam Related Data Allergies: Coded Allergies: No Known Allergies (Unverified , 08/24/19) Triage Vital Signs Vital Signs Date Time Temp Pulse Resp B/P (MAP) Pulse Ox O2 Delivery O2 Flow Rate FiO2 05/12/20 08:38 97.7 84 24 146/79 98 Room Air Vital signs reviewed: Yes Physical Exam CONSTITUTIONAL HENT HENT: Present normocephalic, Present atraumatic, Present oropharynx clear/moist, Present nose normal HENT L/R: Present left ext ear normal, Present right ext ear normal EYES Eyes: Reports PERRL, Reports conjunctivae normal NECK Neck: Present ROM normal PULMONARY Pulmonary: Present effort normal, Present breath sounds normal CARDIOVASCULAR Cardiovascular: Present regular rhythm, Present heart sounds normal, Present capillary refill normal, Present normal rate GASTROINTESTINAL Abdominal: Present soft, Present nontender, Present bowel sounds normal GENITOURINARY Genitourinary: Present exam deferred SKIN Skin: Present warm, Present dry MUSCULOSKELETAL Musculoskeletal: Present ROM normal NEUROLOGICAL Neurological: Present alert, Present no gross motor or sensory deficits PSYCHOLOGICAL Psychological: Present mood/affect normal, Present judgement normal Results Laboratory Lab results reviewed: Yes Assessment & Plan Medical Decision Making MDM 69 yo F arrived to the ED with dislodged G tube- replaced with 18 Fr, confirmed with x-ray placement. Assessment & Plan Final Impression: (1) Gastrostomy tube dysfunction Depart Disposition: HOME, SELF-CARE Last Vital Signs Date Time Temp Pulse Resp B/P (MAP) Pulse Ox O2 Delivery O2 Flow Rate FiO2 05/12/20 08:38 97.7 84 24 146/79 98 Room Air Home Meds Reported Medications Losartan Potassium (LOSARTAN POTASSIUM) 100 Mg Tablet, 100 MG PO DAILY 09/26/18 Gabapentin (GABAPENTIN) 100 Mg Capsule, 100 MG PO TID 09/26/18 [Eliquis] 2.5 MG No Conflict Check, 2.5 MG PO BID 09/26/18 Atorvastatin Calcium (ATORVASTATIN CALCIUM) 20 Mg Tablet, 20 MG PO DAILY 09/26/18 Isosorbide Mononitrate (ISOSORBIDE MONONITRATE) 10 Mg Tablet, 10 MG PO DAILY 09/26/18 Lisinopril (LISINOPRIL) 10 Mg Tablet, 10 MG PO DAILY 09/26/18 Venlafaxine Hcl (VENLAFAXINE HCL ER) 37.5 Mg Cap.er.24h, 37.5 MG PO DAILY 09/26/18 CODY HAWKINS, May 12, 2020 09:21
[2020-05-12] MEDS ORDERED: DIATRIZOATE MEGL/DIATRIZOA SOD 30 ML BTL PO ONE ×2 (09:27→09:36)
[2020-05-12 09:53] VITALS: BP 160/72
--- NOTE | 2020-05-12 09:53 | NUR ---
REPORT CALLED TO THE [facility] AT THIS TIME
--- NOTE | 2020-05-12 10:14 | Diagnostic Imaging Report ---
Exam: KUB - 2 views Indication: Gastrostomy tube replacement Comparison: KUB of earlier the same day Findings: Interval placement of gastrostomy tube with retention balloon projecting over the distal body of the stomach. Contrast material opacifies the stomach and proximal small bowel. No extravasation of contrast to suggest extraluminal positioning. Nonobstructive bowel gas pattern. No free air. Degenerative changes of the spine. Impression: Gastrostomy tube in good position. Signed by: Bettina Guy MD on 05/12/2020 10:10 AM
--- OUTSIDE RECORDS SUMMARY | 2020-05-17 15:06 | XMS REPORT | Continuity of Care Document ---
Author Author [facility] t Organization [facility] Address [address] [place] [address] Phone Unavailable Care Team Providers Care Manufacturing Helper Name Role Phone REBECA MOSES, N JOSE PCP Usman HAWKINS Attphys Unavailable ASHLEY MCKINLEY Attphys Unavailable ARABELLA HI Attphys Unavailable ROMANOCapri BERGER Attphys Unavailable ROMANOCapri BERGER Admphys Unavailable Payers Payer Name Policy Type Policy Number Effective Date Expiration Date S [facility] [employer] [id number] 2019 00:00:00 [facility] [employer] [id number] 2019 00:00:00 [facility] [id number] [facility] Medicare A & B [id number] 2017 00:00:00 [facility] Problems Condition Name Condition Details Condition Category Status Onset Date Resolution Date Last Treatment Date Treating Clinician Comments Source Hypomagnesemia Hypomagnesemia Problem Active [facility] Weakness Weakness Problem Active [facility] Gastrostomy tube dysfunction Problem Active [facility] Encounter for feeding tube placement Problem Active [facility] Allergies, Adverse Reactions, Alerts Allergy Name Allergy Type Status Severity Reaction(s) Onset Date Inacti ve Date Treating Clinician Comments Source No Known Allergies DA Active U 2020-05-11 00:00:00 [facility] No Known Allergies DA Active U 2019-08-23 00:00:00 [facility] No Known Allergies DA Active U 2018-09-18 00:00:00 [facility] No Known Allergies DA Active U 2018-07-12 00:00:00 [facility] No Known Allergies DA Active U 2018-07-07 00:00:00 [facility] No Known Contrast Allergies DA Active U 2005-04-25 00:00: 00 [facility] No Known Drug Allergies DA Active U 2005-04-25 00:00:00 [facility] No Known Food Allergies DA Active U 2005-04-25 00:00:00 [facility] POLLEN DA Active U 2005-04-25 00:00:00 [facility] Social History Social Habit Start Date Stop Date Quantity Comments Source Sex Assigned At 1950 00:00:00 1950 00:00:00 Female [facility] Medications Ordered Medication Name Filled Medication Name Start Date Stop Da te Current Medication? Ordering Clinician Indication Dosage Frequency Signature (SIG) Comments Components Source Atorvastatin Calcium Atorvastatin Calcium Yes 20 Daily [facility] Eliquis Eliquis Yes 2.5 Twice A Day [facility] Gabapentin Gabapentin Yes 100 Three Times A Day [facility] Isosorbide Mononitrate Isosorbide Mononitrate Yes 10 Daily [facility] Lisinopril Lisinopril Yes 10 Daily [facility] Losartan Potassium Losartan Potassium Yes 100 Da ebony [facility] Venlafaxine Hcl (Venlafaxine Hcl Er) 37.5 Mg CAP.ER.24 H Venlafaxine Hcl (Venlafaxine Hcl Er) 37.5 Mg CAP.ER.24H Yes 37.5 Daily [facility] Vital Signs Vital Name Observation Time Observation Value Comments Source Weight 2020-05-15 12:56:00 101 [lb_av] [facility] BMI (Body Mass Index) 2020-05-15 12:56:00 25.3 kg/m2 [facility] Weight 2020-05-12 08:38:00 101 [lb_av] [facility] BMI (Body Mass Index) 2020-05-12 08:38:00 25.3 kg/m2 [facility] Body Temperature 2019-11-08 20:05:00 98.4 [degF] [facility] Procedures Procedure Date / Time Performed Performing Clinician [facility] GTUBE NO [facility] 2019-11-08 00:00:00 [facility] GTUBE NO REVJ [facility] 2019-08-24 00:00:00 [facility] Plan of Care Planned Activity Planned Date Details Comments Source Instructions GI Tube Care [facility] Encounters Start Date/Time End Date/Time Encounter Type Admission Type Att[facility] Facility Care Department Encounter ID Source 2020-05-15 13:20:00 2020-05-15 16:08:00 Departed Emergency Room [facility] [id number] [facility] dical Mckinney 2020-05-12 09:07:00 2020-05-12 11:10:00 Departed Emergency Room 1 CODY HAWKINS [facility] [id number] [facility] 2019-11-08 18:00:00 2019-11-08 22:10:00 Departed Emergency Room 1 ASHLEY MCKINLEY [facility] [id number] [facility] 2019-08-24 13:11:00 2019-08-24 13:28:00 Departed Emergency Room [facility] [id number] [facility] 2019-03-20 12:35:00 2019-03-20 15:52:00 Departed Emergency Room 1 ARABELLA HI [facility] [id number] [facility] 2018-09-28 10:34:00 2018-10-03 15:56:00 Discharged Inpatient 1 [facility] [id number] [facility] 2017-12-11 08:00:00 2017-12-11 08:00:00 Registered Clinic [facility] [id number] [facility] Results Test Description Test Time Test Comments Results Result Comments Source ABDOMEN-1VIEW (KUB) 2020-05-12 10:09:00 [facility] [address] [place] [address] Patient Name: BRYAN BOOTH MR #: [id number] : 1950 Age/Sex: 69/F Req #: [id number] Adm Physician: Ordered by: CODY HAWKINS DO Report #: [id number] Location: ER Room/Bed: Procedure: [id number] DX/ABDOMEN-1VIEW (KUB) Exam Date: 05/12/20 Exam Time: 09 REPORT STATUS: Signed Exam: KUB - 2 views Indication: Gastrostomy tube replacement Comparison: KUB of earlier the same day Findings: Interval placement of gastrostomy tube with retention balloon projecting over the distal body of the stomach. Contrast material opacifies the stomach and proximal small bowel. No extravasation of contrast to suggest extraluminal positioning. Nonobstructive bowel gas pattern. No free air. Degenerative changes of the spine. Impression: Gastrostomy tube in good position. Signed by: Rashawn Mauricio MD on 05/12/2020 10:10 AM Dictated By: RASHAWN MAURICIO MD 1010 Transcribed By: KALANI on 05/12/20 1010 COPY TO: CODY HAWKINS DO - CONT INJ LIBBY/ JEREMY/ AMRY/ KP 2020-05-11 08:55:00 F AX: Camacho Jaffe [phone] [place]: St: REG -- Name: BRYAN BOOTH [facility] : 1950 Age/S: 69/F [address] [facility] Unit #: [id number] Loc: [place] [address] Phys: Camacho Jaffe MD Acct: [id number] Dis Date: Status: REG ER PHONE #: [phone] Exam Date: 05/11/2020 0840 FAX #: [phone] Reason: feeding tube replacement in ER EXAMS: CPT CODE: [id number] CONT INJ GS/ JEREMY/ JRebel/ GG [address]321 HISTORY: feeding tube replacement in ER TECHNIQUE: AP abdomen x- ray COMPARISON: None FINDINGS/ IMPRESSION: Percutaneous gastrostomy tube is present. Contrast injected through the gastrostomy tube opacifies the gastric lumen and there is no intraperitoneal extravasation of contrast to suggest leakage. There is gaseous distention of the large bowel. Degenerative changes are present in the spine and hips. Visualized lungs are clear. Leads from a cardiac device terminate in the right ventricle. Location: [facility] at 0855 Reported and signed by: Steven Vega MD CC: Camacho Jaffe MD Technologist: Kristina Trevino RT(R); Magdalene Singletary RT(R) Trnscrd Date/Time/By: 05/11/2020 (0855) : By: [email or web address] Orig Print D/T: S: 05/11/2020 (08) PAGE 1 Signed Report ABDOMEN-1VIEW ([facility]) 2019-11-08 19:46:00 [place] [address] Patient Name: BRYAN BOOTH MR #: [id number] : 1950 Age/Sex: 69/F Req #: [id number] Adm Physician: Ordered by: ASHLEY MCKINLEY DO Report #: [id number] Location: ER Room/Bed: Procedure: [id number] DX/ABDOMEN-1VIEW ([facility]) Exam Date: Exam Time: REPORT STATUS: Signed EXAM: ABDOMEN-1VIEW ([facility]) DATE: 11/08/2019 6:49 PM INDICATION: PEG TUBE PLACEMENT VERIFICATION PLS COMPARISON: KUB, 03/20/2019 FINDINGS: Supine view of the abdomen shows positive contrast in the stomach, duodenum and proximal small bowel, apparently injected through a gastrostomy tube. No extraluminal contrast is identified. There is a normal distribution of air in the small and large bowel. Intracardiac leads extending toward the right ventricular apex. Degenerative changes are seen in the lumbar spine. IMPRESSION: 1. Contrast in the stomach and proximal small bowel compatible with intraluminal position of the gastrostomy tube. 2. No bowel dilatation or evidence for bowel obstruction. Signed by: Dr. Darnell Horne M.D. on 11/08/2019 7:49 PM Dictated By: DARNELL HORNE MD 48 Transcribed By: KALANI on 11/08/191948 COPY TO: ASHLEY MCKINLEY DO - CONT INJ GS/ DU/ JJ/ GG 2019-08-23 16:14:00 F AX: Medhat Cisneros MD [phone] [place]: St: REG -- Name: BRYAN BOOTH [facility] : 1950 Age/S: 69/F [address] [facility] Unit #: [id number] Loc: [place] [address] Phys: Medhat Cisneros MD Acct: [id number] Dis Date: Status: [facility] ER PHONE #: [phone] Exam Date: 08/23/2019 1410 FAX #: [phone] Reason: g tube placement EXAMS: CPT CODE: [id number] CONT INJ GS/ DU/ JJ/ GG 92000 HISTORY: g tube placement TECHNIQUE: G-tube placement COMPARISON: None FINDINGS: Gastrostomy tube projects over the left upper abdomen. Contrast administered through the gastrostomy tube opacifies the gastric lumen. No intraperitoneal extravasation. Nonobstructive bowel gas pattern. Degenerative changes are present in the pelvis and spine. IMPRESSION: Gastrostomy tube is within the stomach lumen. Location: [facility] at 1614 Reported and signed by: Steven Vega MD CC: Medhat Cisneros MD Technologist: Gregoria Beckham RT(R); HORACIO COOPER RT(R) Trnscrd Date/Time/By: 08/23/2019 (1615) : By: [email or web address] Orig Print D/T: S: 08/23/2019 (2357) PAGE 1 Signed Report ABDOMEN-1VIEW (KUB) 2019-03-20 13:42:00 [place] [address] Patient Name: BRYAN BOOTH MR #: [id number] : 1950 Age/Sex: 68/F Req #: [id number] Adm Physician: Ordered by: ASHLEY SEE MACHINIST CLASS B Report #: [id number] Location: ER Room/Bed: Procedure: [id number] DX/ABDOMEN-1VIEW (KUB) Exam Date: 03/20/19 Exam Time: 1323 REPORT STATUS: Signed Exam: KUB - 1 view Clinical History: Dislodged gastrostomy tube Comparison: None Findings: Contrast has been injected through the gastrostomy tube demonstrating intraluminal position in the stomach. Nonobstructive bowel gas pattern. Images are degraded by motion artifact. The lungs are not well evaluated but there is no large focal consolidation. Left chest pacemaker with leads in the right atrium and right ventricle. Degenerative changes of the lower lumbar spine. Impression: Contrast injection through the gastrostomy tube demonstrates intraluminal position in the stomach. Signed by: Rashawn Mauricio MD on 03/20/2019 1:45 PM Dictated By: RASHAWN MAURICIO MD [id number] Transcribed By: KALANI on 03/20/19 1348 COPY TO: ASHLEY SEE NP Vitamin B6 Level 2018-10-06 05:50:00 Test Item Vitamin B6 Level (test code = 2900-9) 1.5 2.0-32.8 L Verified by repeat analysisThis test was developed and its performance gerald cteristicsdetermined by [facility]. It has not been cleared orapproved by the Food and Drug Administration.Performed at: [place] [address] [place], [place] [id number] Director: Christa Vidal MD, Phone: [phone] Hospital of LaredoUrine Methylmalonic Roqk3408-06-40 06:54:00* Test Item Value Reference Range Interpretation Comments Urine Methylmalonic Acid (test code = 74842-4) 7.8 Reference Range:1.6 - 29.7 umol/LCHI [facility] Hospitals Of AmericaUr Methylmalonic Acid/Gwzlwugqnb9545-30-92 06:54:00* Test Item Value Reference Range Interpretation Comments Ur Methylmalonic Acid/Creatinine (test code = 41437-7) 0.7 Reference Range: 0.5 - 3.4 umol/mmol cr Creatinine(Outside Installer Apprentice), U: 1.25 g/L Referen ce Range:0.30 - 3.00 g/LComments:A This test was developed and its performance c haracteristics determined by[facility]. It has not been cleared or approved by the Food and Drug AdministrationTesting performed by:[address] [id number]. Rajendra Carbajal [facility] Zjvbivr5820-61-17 16:03:00* Test Item Value Reference Range Interpretation Comments Bedside Glucose (test code = 57494-4) 192 70-120 H Meter ID: [id number] [facility] Glucose 2018-10-03 12:01:00* Test Item Value Reference Range Interpretation Comments Bedside Glucose (test code = 42392-4) 205 70-120 H Meter ID: [id number] Hospital of LaredoWhite Blood Count 2018-10-03 10:50:00* Test Item Value Reference Range Interpretation Comments White Blood Count (test code = 6690-2) 8.96 4.8-10.8 [facility]oRed Blood Gempz2822-77-17 10:50:00* Test Item Value Reference Range Interpretation Comments Red Blood Count (test code = 789-8) 3.41 3.6-5.1 L [facility]oHemoglobin2019-02-13 10:50:00* Test Item Value Reference Range Interpretation Comments Hemoglobin (test code = 27466-4) 8.6 12.0-16.0 L [facility]oHematocrit2019-02-13 10:50:00* Test Item Value Reference Range Interpretation Comments Hematocrit (test code = 4544-3) 27.0 34.2-44.1 L [facility] LaredoMean Corpuscular Atbjts6258-29-40 10:50:00* Test Item Value Reference Range Interpretation Comments Mean Corpuscular Volume (test code = 787-2) 79.2 81-99 L [facility] LaredoMean Corpuscular Soruvrhomc8378-02-62 10:50:00* Test Item Value Reference Range Interpretation Comments Mean Corpuscular Hemoglobin (test code = 785-6) 25.2 28-32 L [facility] LaredoMean Corpuscular Hemoglobin Concent 2018-10-03 10:50:00* Test Item Value Reference Range Interpretation Comments Mean Corpuscular Hemoglobin Concent (test code = 786-4) 31.9 31-35 [facility] LaredoRed Cell Distribution Bsgat3347-77-75 10:50:00* Test Item Value Reference Range Interpretation Comments Red Cell Distribution Width (test code = 11724-7) 16.8 11.7 -14.4 H [facility] LaredoPlatelet Uefsk3995-51-11 10:50:00* Test Item Value Reference Range Interpretation Comments Platelet Count (test code = 777-3) 248 140-360 [facility]oNeutrophils (%) (Auto)2018-10-03 10:50:00 * Test Item Value Reference Range Interpretation Comments Neutrophils (%) (Auto) (test code = 89429-8) 69.5 38.7-80.0 [facility]oLymphocytes (%) (Auto)2018-10-03 10:50:00 * Test Item Value Reference Range Interpretation Comments Lymphocytes (%) (Auto) (test code = 736-9) 20.8 18.0-39.1 [facility]oMonocytes (%) (Auto)2018-10-03 10:50:00* Test Item Value Reference Range Interpretation Comments Monocytes (%) (Auto) (test code = 5905-5) 6.9 4.4-11.3 [facility]oEosinophils (%) (Auto)2018-10-03 10:50:00 * Test Item Value Reference Range Interpretation Comments Eosinophils (%) (Auto) (test code = 713-8) 2.0 0.0-6.0 [facility]oBasophils (%) (Auto)2018-10-03 10:50:00* Test Item Value Reference Range Interpretation Comments Basophils (%) (Auto) (test code = 706-2) 0.4 0.0-1.0 [facility]oIM GRANULOCYTES %2018-10-03 10:50:00* Test Item Value Reference Range Interpretation Comments IM GRANULOCYTES % (test code = IM GRANULOCYTES %) 0.4 0.0- 1.0 [facility]oNeutrophils # (Auto)2018-10-03 10:50:00* Test Item Value Reference Range Interpretation Comments Neutrophils # (Auto) (test code = 751-8) 6.2 2.1-6.9 [facility]oLymphocytes # (Auto)2018-10-03 10:50:00* Test Item Value Reference Range Interpretation Comments Lymphocytes # (Auto) (test code = 03800-9) 1.9 1.0-3.2 [facility]oMonocytes # (Auto)2018-10-03 10:50:00* Test Item Value Reference Range Interpretation Comments Monocytes # (Auto) (test code = 742-7) 0.6 0.2-0.8 [facility]oEosinophils # (Auto)2018-10-03 10:50:00* Test Item Value Reference Range Interpretation Comments Eosinophils # (Auto) (test code = 711-2) 0.2 0.0-0.4 [facility]oBasophils # (Auto)2018-10-03 10:50:00* Test Item Value Reference Range Interpretation Comments Basophils # (Auto) (test code = 704-7) 0.0 0.0-0.1 [facility] LaredoAbsolute Immature Granulocyte (auto 2018-10-03 10:50:00* Test Item Value Reference Range Interpretation Comments Absolute Immature Granulocyte (auto (tuan t code = Absolute Immature Granulocyte (auto) 0.04 0-0.1 [facility]oWhite Blood Hqcsp1894-57-19 10:50:00* Test Item Value Reference Range Interpretation Comments White Blood Count (test code = 6690-2) 8.96 4.8-10.8 [facility]aredoRed Blood Ppvxt2675-58-93 10:50:00* Test Item Value Reference Range Interpretation Comments Red Blood Count (test code = 789-8) 3.41 3.6-5.1 L [facility]aredoHemoglobin2019-02-13 10:50:00* Test Item Value Reference Range Interpretation Comments Hemoglobin (test code = 54081-6) 8.6 12.0-16.0 L [facility]oHematocrit2019-02-13 10:50:00* Test Item Value Reference Range Interpretation Comments Hematocrit (test code = 4544-3) 27.0 34.2-44.1 L [facility] LaredoMean Corpuscular Lchqhz4812-75-89 10:50:00* Test Item Value Reference Range Interpretation Comments Mean Corpuscular Volume (test code = 787-2) 79.2 81-99 L [facility]aredoMean Corpuscular Fjehnhjwin5120-04-00 10:50:00* Test Item Value Reference Range Interpretation Comments Mean Corpuscular Hemoglobin (test code = 785-6) 25.2 28-32 L [facility] LaredoMean Corpuscular Hemoglobin Concent 2018-10-03 10:50:00* Test Item Value Reference Range Interpretation Comments Mean Corpuscular Hemoglobin Concent (test code = 786-4) 31.9 31-35 [facility]aredoRed Cell Distribution Rrluc5980-46-98 10:50:00* Test Item Value Reference Range Interpretation Comments Red Cell Distribution Width (test code = 67181-3) 16.8 11.7 -14.4 H [facility] LaredoPlatelet Yfwql2666-36-26 10:50:00* Test Item Value Reference Range Interpretation Comments Platelet Count (test code = 777-3) 248 140-360 [facility]oNeutrophils (%) (Auto)2018-10-03 10:50:00 * Test Item Value Reference Range Interpretation Comments Neutrophils (%) (Auto) (test code = 86366-0) 69.5 38.7-80.0 [facility] LaredoLymphocytes (%) (Auto)2018-10-03 10:50:00 * Test Item Value Reference Range Interpretation Comments Lymphocytes (%) (Auto) (test code = 736-9) 20.8 18.0-39.1 [facility]oMonocytes (%) (Auto)2018-10-03 10:50:00* Test Item Value Reference Range Interpretation Comments Monocytes (%) (Auto) (test code = 5905-5) 6.9 4.4-11.3 [facility]oEosinophils (%) (Auto)2018-10-03 10:50:00 * Test Item Value Reference Range Interpretation Comments Eosinophils (%) (Auto) (test code = 713-8) 2.0 0.0-6.0 [facility]oBasophils (%) (Auto)2018-10-03 10:50:00* Test Item Value Reference Range Interpretation Comments Basophils (%) (Auto) (test code = 706-2) 0.4 0.0-1.0 [facility]oIM GRANULOCYTES %2018-10-03 10:50:00* Test Item Value Reference Range Interpretation Comments IM GRANULOCYTES % (test code = IM GRANULOCYTES %) 0.4 0.0- 1.0 [facility]oNeutrophils # (Auto)2018-10-03 10:50:00* Test Item Value Reference Range Interpretation Comments Neutrophils # (Auto) (test code = 751-8) 6.2 2.1-6.9 [facility] LaredoLymphocytes # (Auto)2018-10-03 10:50:00* Test Item Value Reference Range Interpretation Comments Lymphocytes # (Auto) (test code = 24210-0) 1.9 1.0-3.2 [facility]oMonocytes # (Auto)2018-10-03 10:50:00* Test Item Value Reference Range Interpretation Comments Monocytes # (Auto) (test code = 742-7) 0.6 0.2-0.8 [facility]oEosinophils # (Auto)2018-10-03 10:50:00* Test Item Value Reference Range Interpretation Comments Eosinophils # (Auto) (test code = 711-2) 0.2 0.0-0.4 [facility]oBasophils # (Auto)2018-10-03 10:50:00* Test Item Value Reference Range Interpretation Comments Basophils # (Auto) (test code = 704-7) 0.0 0.0-0.1 [facility]aredoAbsolute Immature Granulocyte (auto 2018-10-03 10:50:00* Test Item Value Reference Range Interpretation Comments Absolute Immature Granulocyte (auto (tuan t code = Absolute Immature Granulocyte (auto) 0.04 0-0.1 [facility]oMagnesium Nuawj9554-88-96 06:05:00* Test Item Value Reference Range Interpretation Comments Magnesium Level (test code = 33338-1) 1.4 1.3-2.1 [facility] LaredoMaesium Bklmd7160-54-36 06:05:00* Test Item Value Reference Range Interpretation Comments Magnesium Level (test code = 70769-1) 1.4 1.3-2.1 [facility] Gxwue2335-56-02 05:57:00* Test Item Value Reference Range Interpretation Comments Sodium Level (test code = 2951-2) 130 136-145 L [facility]oPotassium Oaybp1060-56-37 05:57:00* Test Item Value Reference Range Interpretation Comments Potassium Level (test code = 2823-3) 3.5 3.5-5.1 [facility]oChloride Wymsn8104-79-12 05:57:00* Test Item Value Reference Range Interpretation Comments Chloride Level (test code = 2075-0) 96 98-107 L [facility] LaredoCarbon Dioxide Rlayg3561-73-90 05:57:00* Test Item Value Reference Range Interpretation Comments Carbon Dioxide Level (test code = 2028-9) 28 22-29 [facility] LaredoAnion Sug0898-26-28 05:57:00* Test Item Value Reference Range Interpretation Comments Anion Gap (test code = 71470-0) 9.5 8-16 [facility]oBlood Urea Xwywfayg7097-15-98 05:57:00* Test Item Value Reference Range Interpretation Comments Blood Urea Nitrogen (test code = 3094-0) 7 7-26 [facility]oCreatinine2019-02-13 05:57:00* Test Item Value Reference Range Interpretation Comments Creatinine (test code = 2160-0) 0.60 0.57-1.11 [facility]oBUN/Creatinine Zyqwl4702-55-02 05:57:00* Test Item Value Reference Range Interpretation Comments BUN/Creatinine Ratio (test code = 3097-3) 12 6-25 [facility] LaredoEstimat Glomerular Filtration Rate 2018-10-03 05:57:00* Test Item Value Reference Range Interpretation Comments Estimat Glomerular Filtration Rate (test code = 681979145) > 60 >60 Ranges were taken from the National Kidney Disease Education Program and the [facility] [employer] literature.Reference ranges:60 or greater: Nqprlq55-37 ( for 3 consecutive months): Chronic kidney disease 15 or less: Kidney failureDoctors Hospital of LaredoGlucose Ndbms0493-69-40 05:57:00* Test Item Value Reference Range Interpretation Comments Glucose Level (test code = ZFE3290) 147 74-118 H [facility] LaredoCalcium Piabv3230-50-15 05:57:00* Test Item Value Reference Range Interpretation Comments Calcium Level (test code = 79535-5) 8.4 8.4-10.2 [facility]land[facility] Ecamg2724-08-50 05:57:00* Test Item Value Reference Range Interpretation Comments Sodium Level (test code = 2951-2) 130 136-145 L [facility] L[facility]oPotassium Ujlwm9851-02-03 05:57:00* Test Item Value Reference Range Interpretation Comments Potassium Level (test code = 2823-3) 3.5 3.5-5.1 [facility] LaredoChloride Mumwv9105-27-24 05:57:00* Test Item Value Reference Range Interpretation Comments Chloride Level (test code = 2075-0) 96 98-107 L [facility] of LaredoCarbon Dioxide Pxntb9308-55-14 05:57:00* Test Item Value Reference Range Interpretation Comments Carbon Dioxide Level (test code = 2028-9) 28 22-29 [facility] LaredoAnion Ynh1009-60-17 05:57:00* Test Item Value Reference Range Interpretation Comments Anion Gap (test code = 59149-3) 9.5 8-16 [facility] L[facility]oBlood Urea Bwyxnuod7362-01-53 05:57:00* Test Item Value Reference Range Interpretation Comments Blood Urea Nitrogen (test code = 3094-0) 7 7-26 [facility] LaredoCreatinine2019-02-13 05:57:00* Test Item Value Reference Range Interpretation Comments Creatinine (test code = 2160-0) 0.60 0.57-1.11 [facility]Creatinine Rghok7972-69-66 05:57:00* Test Item Value Reference Range Interpretation Comments BUN/Creatinine Ratio (test code = 3097-3) 12 6-25 [facility]aredoEstimat Glomerular Filtration Rate 2018-10-03 05:57:00* Test Item Value Reference Range Interpretation Comments Estimat Glomerular Filtration Rate (test code = 912831227) > 60 >60 Ranges were taken from the National Kidney Disease Education Program and the [facility] [employer] literature.Reference ranges:60 or greater: Kushvl41-05 ( for 3 consecutive months): Chronic kidney disease 15 or less: Kidney failureDoctors Hospital of LaredoGlucose Fjmjj5550-97-29 05:57:00* Test Item Value Reference Range Interpretation Comments Glucose Level (test code = HFL1575) 147 74-118 H [facility]aredoCalcium Shauo8559-49-50 05:57:00* Test Item Value Reference Range Interpretation Comments Calcium Level (test code = 35134-4) 8.4 8.4-10.2 [facility]aredoBlood Opyhkwi1754-96-14 05:52:00* Test Item Value Reference Range Interpretation Comments Blood Culture (test code = 37328834) NO GROWTH AFTER 5 DAYS, FINAL REPORT [facility] Hcanabj4020-60-94 05:52:00* Test Item Value Reference Range Interpretation Comments Blood Culture (test code = 49352172) NO GROWTH AFTER 5 DAYS, FINAL REPORT [facility]oTotal Pvlutpbod2416-86-42 06:35:00* Test Item Value Reference Range Interpretation Comments Total Bilirubin (test code = 1975-2) 0.4 0.2-1.2 [facility] LaredoAspartate Amino Transf (AST/SGOT) 2018-10-02 06:35:00* Test Item Value Reference Range Interpretation Comments Aspartate Amino Transf (AST/SGOT) (test code = Aspartate Amino Transf (AST/SGOT)) 14 5-34 [facility]oAlanine Aminotransferase (ALT/SGPT) 2018-10-02 06:35:00* Test Item Value Reference Range Interpretation Comments Alanine Aminotransferase (ALT/SGPT) (test code = 1742-6) 8 0-55 [facility] Ncdeqjt0574-04-97 06:35:00* Test Item Value Reference Range Interpretation Comments Total Protein (test code = 2885-2) 5.0 6.5-8.1 L [facility]aredoAlbumin2019-02-12 06:35:00* Test Item Value Reference Range Interpretation Comments Albumin (test code = 1751-7) 2.0 3.5-5.0 L [facility]oGlobulin2019-02-12 06:35:00* Test Item Value Reference Range Interpretation Comments Globulin (test code = 56855-8) 3.0 2.3-3.5 [facility]oAlbumin/Globulin Dvpjh6041-02-30 06:35:00 * Test Item Value Reference Range Interpretation Comments Albumin/Globulin Ratio (test code = 1759-0) 0.7 0.8-2.0 L [facility]aredoAlkaline Emtldrticcn2626-49-98 06:35:00* Test Item Value Reference Range Interpretation Comments Alkaline Phosphatase (test code = 6768-6) 64 40-150 [facility]oTotal Hnuhtsquy9592-75-59 06:35:00* Test Item Value Reference Range Interpretation Comments Total Bilirubin (test code = 1975-2) 0.4 0.2-1.2 [facility] LaredoAspartate Amino Transf (AST/SGOT) 2018-10-02 06:35:00* Test Item Value Reference Range Interpretation Comments Aspartate Amino Transf (AST/SGOT) (test code = Aspartate Amino Transf (AST/SGOT)) 14 5-34 [facility]aredoAlanine Aminotransferase (ALT/SGPT) 2018-10-02 06:35:00* Test Item Value Reference Range Interpretation Comments Alanine Aminotransferase (ALT/SGPT) (test code = 1742-6) 8 0-55 [facility]oTotal Iqevquu0458-56-25 06:35:00* Test Item Value Reference Range Interpretation Comments Total Protein (test code = 2885-2) 5.0 6.5-8.1 L [facility]aredoAlbumin2019-02-12 06:35:00* Test Item Value Reference Range Interpretation Comments Albumin (test code = 1751-7) 2.0 3.5-5.0 L [facility]oGlobulin2019-02-12 06:35:00* Test Item Value Reference Range Interpretation Comments Globulin (test code = 68048-9) 3.0 2.3-3.5 [facility]oAlbumin/Globulin Awhih7979-67-02 06:35:00 * Test Item Value Reference Range Interpretation Comments Albumin/Globulin Ratio (test code = 1759-0) 0.7 0.8-2.0 L [facility] LaredoAlkaline Xxmiyidabnk1764-16-31 06:35:00* Test Item Value Reference Range Interpretation Comments Alkaline Phosphatase (test code = 6768-6) 64 40-150 [facility]aredoVitamin B1 Yautd6996-06-25 23:29:00* Test Item Value Reference Range Interpretation Comments Vitamin B1 Level (test code = 39428-0) 36.8 66.5-200.0 L This test was developed and its performance characteristicsdetermined by [employer] . It has not been cleared orapproved by the Food and Drug Administration.Perform ed at: [address] [id number] Dir lisa: Christa Vidal MD, Phone: [phone] Hospital of LaredoVitamin B1 Uykts5850-75-73 23:29:00* Test Item Value Reference Range Interpretation Comments Vitamin B1 Level (test code = 14084-5) 36.8 66.5-200.0 L This test was developed and its performance characteristicsdetermined by [employer] . It has not been cleared orapproved by the Food and Drug Administration.Perform ed at: [address] [id number] Dir lisa: Christa Vidal MD, Phone: [phone] Hospital of LaredoClostridium Difficile Toxin A & U2854-04-87 10:34:00* Test Item Value Reference Range Interpretation Comments Clostridium Difficile Toxin A & B (test code = 120960709) NEGATIVE NEGATIVE Testing on stool aspirate specimens is outside business management specialist claims since specime n type not validated on this assay.[facility] Clostridium Difficile Toxin A & L9555-58-95 10:34:00* Test Item Value Reference Range Interpretation Comments Clostridium Difficile Toxin A & B (test code = 522079422) NEGATIVE NEGATIVE Testing on stool aspirate specimens is outside business management specialist claims since specime n type not validated on this assay.[facility] Hemoglobin A1c Ictmiin0378-70-10 05:51:00* Test Item Value Reference Range Interpretation Comments Hemoglobin A1c Percent (test code = Hemoglobin A1c Percent) 6.4 4.0-7.0 [facility]oHemoglobin A1c Idpgmnq8900-21-69 05:51:00 * Test Item Value Reference Range Interpretation Comments Hemoglobin A1c Percent (test code = Hemoglobin A1c Percent) 6.4 4.0-7.0 [facility]aredoCHEST SINGLE (PORTABLE)2018-09-29 17:32:00 [facility] [address] [place] [address] Patient Name: BRYAN BOOTH MR #: [id number] : 1950 Age/Sex: 68/F Req #: [id number] Adm Physician: BAO ROMANO MD Ordered by: JOEL ROMANO MD Report #: [id number] Location: MED/SURG2 [place] [facility] [place] Procedure: [id number] DX/CHEST SINGLE (PORTABLE) Exam Date: 09/29/18 Exam Time: 1640 REPORT STATUS: Signed EXAMINATION: CHEST SINGLE (PORTABLE) INDICATION: Pneumonia. COM PARISON: Chest radiograph 09/26/2018. FINDINGS: TUBES and LINES: Le ft-sided pacemaker device with leads overlying the right atrium and right vent ricle. LUNGS: There are new multifocal patchy opacities in the right mid an d lower lung zones. No evidence of pulmonary edema. PLEURA: No pleural e ffusion or pneumothorax. HEART AND MEDIASTINUM: The cardiomediastinal samanta houette is unremarkable. BONES AND SOFT TISSUES: No acute osseous abno rmality. UPPER ABDOMEN: No free air under the diaphragm. IMPRESSIO N: New right mid and lower lung zone opacities, consistent with pneumonia. Follow-up chest radiograph is suggested to assess for resolution. Signed by : Dr. Sheela Arreola MD on 09/29/2018 5:34 PM Dictated By: SHEELA ARREOLA MD Elec tronically Signed By: SHEELA ARREOLA MD on 09/29/181733 Transcribed By: KALANI on 09/29/181733 COPY TO: JOEL ROMANO MD Differential Total Cells Fevmkjo1023-37-97 06:49:00* Test Item Value Reference Range Interpretation Comments Differential Total Cells Counted (test code = Differen tial Total Cells Counted) 100 [facility]oNeutrophils % (Manual)2018-09-29 06:49:00 * Test Item Value Reference Range Interpretation Comments Neutrophils % (Manual) (test code = 03645-5) 90 40-74 H [facility] LaredoBand Neutrophils %2018-09-29 06:49:00* Test Item Value Reference Range Interpretation Comments Band Neutrophils % (test code = 764-1) 1 [facility]aredoLymphocytes % (Manual)2018-09-29 06:49:00 * Test Item Value Reference Range Interpretation Comments Lymphocytes % (Manual) (test code = 737-7) 4 19-48 L [facility]oMonocytes % (Manual)2018-09-29 06:49:00* Test Item Value Reference Range Interpretation Comments Monocytes % (Manual) (test code = 744-3) 5 3.4-9.0 [facility]aredoPlatelet Bjqaiuen7264-46-00 06:49:00* Test Item Value Reference Range Interpretation Comments Platelet Estimate (test code = 17427-5) ADEQUATE [facility]oPlatelet Morphology Unxofag3074-26-66 06:49:00* Test Item Value Reference Range Interpretation Comments Platelet Morphology Comment (test code = 02005-2) NORMAL [facility]oAnisocytosis2019-02-09 06:49:00* Test Item Value Reference Range Interpretation Comments Anisocytosis (test code = 702-1) SLIGHT [facility]oMicrocytosis2019-02-09 06:49:00* Test Item Value Reference Range Interpretation Comments Microcytosis (test code = 741-9) SLIGHT [facility] LaredoRed Cell Morphology Bkrxglb6343-20-97 06:49:00* Test Item Value Reference Range Interpretation Comments Red Cell Morphology Comment (test code = 6742-1) ABNORMAL [facility]oDifferential Total Cells Counted 2018-09-29 06:49:00* Test Item Value Reference Range Interpretation Comments Differential Total Cells Counted (test code = Differconor tial Total Cells Counted) 100 [facility]oNeutrophils % (Manual)2018-09-29 06:49:00 * Test Item Value Reference Range Interpretation Comments Neutrophils % (Manual) (test code = 11926-9) 90 40-74 H [facility]oBand Neutrophils %2018-09-29 06:49:00* Test Item Value Reference Range Interpretation Comments Band Neutrophils % (test code = 764-1) 1 [facility]aredoLymphocytes % (Manual)2018-09-29 06:49:00 * Test Item Value Reference Range Interpretation Comments Lymphocytes % (Manual) (test code = 737-7) 4 19-48 L [facility]oMonocytes % (Manual)2018-09-29 06:49:00* Test Item Value Reference Range Interpretation Comments Monocytes % (Manual) (test code = 744-3) 5 3.4-9.0 [facility]aredoPlatelet Fskzzidu7259-72-55 06:49:00* Test Item Value Reference Range Interpretation Comments Platelet Estimate (test code = 76714-7) ADEQUATE [facility]aredoPlatelet Morphology Igqcjtz8224-86-22 06:49:00* Test Item Value Reference Range Interpretation Comments Platelet Morphology Comment (test code = 49312-6) NORMAL [facility]oAnisocytosis2019-02-09 06:49:00* Test Item Value Reference Range Interpretation Comments Anisocytosis (test code = 702-1) SLIGHT [facility]aredoMicrocytosis2019-02-09 06:49:00* Test Item Value Reference Range Interpretation Comments Microcytosis (test code = 741-9) SLIGHT [facility]aredoRed Cell Morphology Mlvmwlf5243-57-71 06:49:00* Test Item Value Reference Range Interpretation Comments Red Cell Morphology Comment (test code = 6742-1) ABNORMAL [facility] LaredoThyroid Stimulating Hormone (TSH) 2018-09-28 07:06:00* Test Item Value Reference Range Interpretation Comments Thyroid Stimulating Hormone (TSH) (test code = 89558-3) 0.082 0.350-4.940 L [facility] LaredoThyroid Stimulating Hormone (TSH) 2018-09-28 07:06:00* Test Item Value Reference Range Interpretation Comments Thyroid Stimulating Hormone (TSH) (test code = 53192-8) 0.082 0.350-4.940 L [facility]oTriglycerides Cfvml1033-16-11 06:43:00* Test Item Value Reference Range Interpretation Comments Triglycerides Level (test code = 2571-8) 76 0-149 [facility]oCholesterol Kwlyt0308-35-47 06:43:00* Test Item Value Reference Range Interpretation Comments Cholesterol Level (test code = 2093-3) 84 0-199 Less than 200 mg/dL Low Bzyc355 - 239 mg/dL Borderline Zvdz867 m g/dl and greater High Risk [facility] LaredoLDL Aofylcuevph7871-38-35 06:43:00* Test Item Value Reference Range Interpretation Comments LDL Cholesterol (test code = 2089-1) 37 60-130 L [facility] LaredoHDL Smcvnncesbu6848-58-10 06:43:00* Test Item Value Reference Range Interpretation Comments HDL Cholesterol (test code = 2085-9) 32 40-60 L [facility]oCholesterol/HDL Snfdq7320-55-08 06:43:00 * Test Item Value Reference Range Interpretation Comments Cholesterol/HDL Ratio (test code = 9830-1) 2.6 3.0-3.6 L [facility]aredoTriglycerides Pquvv0848-60-78 06:43:00* Test Item Value Reference Range Interpretation Comments Triglycerides Level (test code = 2571-8) 76 0-149 [facility]oCholesterol Sqrci0281-03-55 06:43:00* Test Item Value Reference Range Interpretation Comments Cholesterol Level (test code = 2093-3) 84 0-199 Less than 200 mg/dL Low Gmsm489 - 239 mg/dL Borderline Mfoe195 m g/dl and greater High Risk [facility] LaredoLDL Tczutagbjev3904-58-57 06:43:00* Test Item Value Reference Range Interpretation Comments LDL Cholesterol (test code = 2089-1) 37 60-130 L [facility]oHDL Dthehfyetmm2625-55-12 06:43:00* Test Item Value Reference Range Interpretation Comments HDL Cholesterol (test code = 2085-9) 32 40-60 L [facility]oCholesterol/HDL Idryz1057-10-39 06:43:00 * Test Item Value Reference Range Interpretation Comments Cholesterol/HDL Ratio (test code = 9830-1) 2.6 3.0-3.6 L [facility] LaredoRapid Plasma Yqdbve9085-47-29 05:24:00* Test Item Value Reference Range Interpretation Comments Rapid Plasma Reagin (test code = 63198-0) Non Reactive Non Reactive Performed at: [employer] [facility] [id number] Director: Eren Lord MD, Phone: [phone] Hospital of LaredoRapid Plasma Xuinng1848-10-36 05:24:00* Test Item Value Reference Range Interpretation Comments Rapid Plasma Reagin (test code = 66164-1) Non Reactive Non Reactive Performed at: [employer] [id number] Director: Eren Lord MD, Phone: [phone] Hospital of LaredoVitamin B12 Ekwko3392-34-31 17:04:00* Test Item Value Reference Range Interpretation Comments Vitamin B12 Level (test code = 26679-2) 268 213-816 [facility]oVitamin B12 Plttz8001-44-01 17:04:00* Test Item Value Reference Range Interpretation Comments Vitamin B12 Level (test code = 40647-3) 537 409-971 [facility] LaredoFolate2019-02-07 16:58:00* Test Item Value Reference Range Interpretation Comments Folate (test code = 2284-8) 10.6 7.0-15.4 [facility]oFolate2019-02-07 16:58:00* Test Item Value Reference Range Interpretation Comments Folate (test code = 2284-8) 10.6 7.0-15.4 [facility] LaredoMODIFIED BA. KQEJIFN8113-12-88 13:52:00 [facility] [address] [address] Patient Name: BRYAN BOOTH MR #: [id number] : 2 Age/Sex: 68/F Req #: [id number] Adm Physician: BAO ROMANO MD Ordered by: CODY MACKAY MD Report #: [id number] Location: [facility] Room/Bed: [place] [address] Procedure: [id number] D X/MODIFIED BA. SWALLOW Exam Date: 09/27/18 Exam Time : 1030 REPORT STATUS: Signed EXA M: Modified barium swallow with Speech Pathologist INDICATION: poor o ral intake [id number] COMPARISON: None available. RADIATION DOSE : Fluoroscopy Time: 2.3 min Dose (Kerma) Area Product: 2.43 Gyc m2 Air Kerma (AK) value has been reviewed. It is below the limits set by the Radiation Protocol Committee (RPC) committee. FINDINGS: See imp ression IMPRESSION: Silent laryngeal penetration with all consistencie s. Silent aspiration with thin, nectar, and honey thick liquids. Refer to s [facility] pathology report for further details and recommendations. Signed by: Dr. Sailaja Perez M.D. on 09/27/2018 1:54 PM Dictated By: SAILAJA PEREZ MD 1356 Transc ribed By: KALAIN on 09/27/18 1353 COPY TO: CODY MACKAY MD B- Type Natriuretic Lokvgdm3575-37-25 16:34:00* Test Item Value Reference Range Interpretation Comments B-Type Natriuretic Peptide (test code = 56112-7) 23.2 0-100 [facility] Nat[facility] Xroazrg5618-19-34 16:34:00* Test Item Value Reference Range Interpretation Comments B-Type Natriuretic Peptide (test code = 61729-5) 23.2 0-100 [facility] AmericaCHEST SINGLE ([facility]ABLE)2018-09-26 16:29:00 [facility] [address] [place] [address] Patient Name: BRYAN BOOTH MR #: [id number] : 1950 Age/Sex: 68/F Req #: [id number] Adm Physician: Ordered by: AURELIA DOMINGUEZ MACHINIST CLASS B Report #: [id number] Location: ER Room/Bed: Procedure: [id number] D X/CHEST SINGLE (PORTABLE) Exam Date: 09/26/18 Exam T dana: 1620 REPORT STATUS: Signed EXAMINATION: CHEST SINGLE (PORTABLE) INDICATION: Weakness. VALERIE RISON: None FINDINGS: TUBES and LINES: Left-sided pacemaker with l aure overlying the right atrium and right ventricle. Overlying EKG leads. LUNGS: Lungs are moderately inflated. There is mild central vascular congestion without evidence of pulmonary edema. No evidence of pneumonia. PLEURA: No pleural effusion or pneumothorax. HEART AND MEDIASTINUM: The cardiome diastinal silhouette is unremarkable. BONES AND SOFT TISSUES: No acute osseous abnormality. UPPER ABDOMEN: No free air under the diaphragm. IMPRESSION: No acute radiographic abnormality. Mild central vascula r congestion without evidence of pulmonary edema. Signed by: Dr. Sheela Arreola MD on 09/26/2018 4:31 PM Dictated By: SHEELA ARREOLA MD Electronically Shima d By: SHEELA ARREOLA MD on 09/26/18 1631 Transcribed By: KALANI on 09/26/18 1631 COPY TO: AURELIA DOMINGUEZ MACHINIST CLASS B Urine QEK3538-10-05 16:26:00* Test Item Value Reference Range Interpretation Comments Urine WBC (test code = 5821-4) NONE 0-5 [facility]oUrine SVP8464-60-55 16:26:00* Test Item Value Reference Range Interpretation Comments Urine RBC (test code = 44865-8) NONE 0-5 [facility]oUrine Zmewjssl9762-29-44 16:26:00* Test Item Value Reference Range Interpretation Comments Urine Bacteria (test code = 32484-2) MANY NONE H [facility]oUrine Epithelial Zenyv7093-98-30 16:26:00 * Test Item Value Reference Range Interpretation Comments Urine Epithelial Cells (test code = 49324-8) FEW NONE [facility]oUrine Transitional Epithelial Cells 2018-09-26 16:26:00* Test Item Value Reference Range Interpretation Comments Urine Transitional Epithelial Cells (test code = 8249-5) MODERATE NONE H [facility]oUrine REB8227-59-42 16:26:00* Test Item Value Reference Range Interpretation Comments Urine WBC (test code = 5821-4) NONE 0-5 [facility]oU[facility] YGH3045-78-51 16:26:00* Test Item Value Reference Range Interpretation Comments Urine RBC (test code = 78283-0) NONE 0-5 [facility]oU[facility] Txcyilra2362-45-41 16:26:00* Test Item Value Reference Range Interpretation Comments Urine Bacteria (test code = 48232-3) MANY NONE H [facility]oUrine Epithelial Qqjph0875-08-04 16:26:00 * Test Item Value Reference Range Interpretation Comments Urine Epithelial Cells (test code = 63015-2) FEW NONE [facility]oUrine Transitional Epithelial Cells 2018-09-26 16:26:00* Test Item Value Reference Range Interpretation Comments Urine Transitional Epithelial Cells (test code = 8249-5) MODERATE NONE H [facility]oCreatine Kinase JY1428-42-28 16:25:00* Test Item Value Reference Range Interpretation Comments Creatine Kinase MB (test code = 86435-3) 0.70 0-5.0 [facility]oTroponin Y2963-88-32 16:25:00* Test Item Value Reference Range Interpretation Comments Troponin I (test code = ZSC4754) 0.026 0-0.300 [facility]oCreatine Kinase CG0325-69-43 16:25:00* Test Item Value Reference Range Interpretation Comments Creatine Kinase MB (test code = 11612-9) 0.70 0-5.0 [facility]oTroponin O6215-58-73 16:25:00* Test Item Value Reference Range Interpretation Comments Troponin I (test code = VHY0802) 0.026 0-0.300 [facility]oCreatine Wvdtbi1750-42-31 16:23:00* Test Item Value Reference Range Interpretation Comments Creatine Kinase (test code = 2157-6) 28 29-168 L [facility]oAmylase Oleom6563-91-29 16:23:00* Test Item Value Reference Range Interpretation Comments Amylase Level (test code = 1798-8) 57 25-125 [facility]aredoLipase2019-02-06 16:23:00* Test Item Value Reference Range Interpretation Comments Lipase (test code = 3040-3) 39 8-78 [facility]oCreatine Brttaa1283-90-45 16:23:00* Test Item Value Reference Range Interpretation Comments Creatine Kinase (test code = 2157-6) 28 29-168 L [facility]oAmylase Hldgg7108-48-56 16:23:00* Test Item Value Reference Range Interpretation Comments Amylase Level (test code = 1798-8) 57 25-125 [facility]oLipase2019-02-06 16:23:00* Test Item Value Reference Range Interpretation Comments Lipase (test code = 3040-3) 39 8-78 [facility]oUrine Xudtq5915-70-89 16:12:00* Test Item Value Reference Range Interpretation Comments Urine Color (test code = 5778-6) STRAW YELLOW [facility]oUrine Ojqgmte4455-62-02 16:12:00* Test Item Value Reference Range Interpretation Comments Urine Clarity (test code = 53029-5) SL CLOUDY CLEAR [facility]oUrine Specific Xfkijca0432-02-26 16:12:00 * Test Item Value Reference Range Interpretation Comments Urine Specific [place] (test code = 5811-5) 1.025 1.010-1.02 5 [facility]oUrine vX4318-84-20 16:12:00* Test Item Value Reference Range Interpretation Comments Urine pH (test code = 86613-4) 5 5-7 [facility]oU[facility] Leukocyte Qezhpzyc1251-00-24 16:12:00* Test Item Value Reference Range Interpretation Comments Urine Leukocyte Esterase (test code = 5799-2) TRACE NEGATIVE H [facility]oUrine Ndhceri7835-85-95 16:12:00* Test Item Value Reference Range Interpretation Comments Urine Nitrite (test code = 42189-7) NEGATIVE NEGATIVE [facility]oU[facility] Pqcwsoe1464-46-58 16:12:00* Test Item Value Reference Range Interpretation Comments Urine Protein (test code = 5804-0) 1+ NEGATIVE H [facility]oUrine Glucose (UA)2018-09-26 16:12:00* Test Item Value Reference Range Interpretation Comments Urine Glucose (UA) (test code = 2349-9) NEGATIVE NEGATIVE [facility]oU[facility] Flxcdry9824-81-41 16:12:00* Test Item Value Reference Range Interpretation Comments Urine Ketones (test code = 37676-1) TRACE NEGATIVE H [facility]oU[facility] Xujcmbcdgtpw9053-71-81 16:12:00* Test Item Value Reference Range Interpretation Comments Urine Urobilinogen (test code = 71200-6) 4 0.2-1 H [facility]oUrine Afugeatye5542-97-58 16:12:00* Test Item Value Reference Range Interpretation Comments Urine Bilirubin (test code = 1978-6) 2+ NEGATIVE H [facility]oUrine Ldkvz8922-79-98 16:12:00* Test Item Value Reference Range Interpretation Comments Urine Blood (test code = 55158-3) NEGATIVE NEGATIVE [facility]oU[facility] Javpg5740-41-32 16:12:00* Test Item Value Reference Range Interpretation Comments Urine Color (test code = 5778-6) STRAW YELLOW [facility]oU[facility] Nyyxxlw5712-86-22 16:12:00* Test Item Value Reference Range Interpretation Comments Urine Clarity (test code = 39427-6) SL CLOUDY CLEAR [facility]oU[facility] Specific Whzcuin4422-34-18 16:12:00 * Test Item Value Reference Range Interpretation Comments Urine Specific [place] (test code = 5811-5) 1.025 1.010-1.02 5 [facility]oU[facility] aD3976-86-54 16:12:00* Test Item Value Reference Range Interpretation Comments Urine pH (test code = 59755-9) 5 5-7 [facility]oU[facility] Leukocyte Icuvetvn1061-45-94 16:12:00* Test Item Value Reference Range Interpretation Comments Urine Leukocyte Esterase (test code = 5799-2) TRACE NEGATIVE H [facility]oUrine Deadopf5370-33-97 16:12:00* Test Item Value Reference Range Interpretation Comments Urine Nitrite (test code = 23221-0) NEGATIVE [facility]GATIVE [facility] [id number] 16:12:00* Test Item Value Reference Range Interpretation Comments Urine Protein (test code = 5804-0) 1+ NEGATIVE H [facility] Glucose (UA)2018-09-26 16:12:00* Test Item Value Reference Range Interpretation Comments Urine Glucose (UA) (test code = 2349-9) NEGATIVE NEGATIVE [facility] [id number] 16:12:00* Test Item Value Reference Range Interpretation Comments Urine Ketones (test code = 54585-5) TRACE NEGATIVE H [facility] [id number] 16:12:00* Test Item Value Reference Range Interpretation Comments Urine Urobilinogen (test code = 82958-3) 4 0.2-1 H [facility] [id number] 16:12:00* Test Item Value Reference Range Interpretation Comments Urine Bilirubin (test code = 1978-6) 2+ NEGATIVE H [facility] [id number] 16:12:00* Test Item Value Reference Range Interpretation Comments Urine Blood (test code = 36567-6) NEGATIVE [facility]GATIVE [facility] Partial Thromboplast Time 2018-09-26 16:11:00* Test Item Value Reference Range Interpretation Comments Activated Partial Thromboplast Time (test code = 60808-7) 34.3 23.8-35.5 [facility] [id number] 16:11:00* Test Item Value Reference Range Interpretation Comments Lactic Acid Level (test code = Lactic Acid Level) 16.4 4.5- 19.8 [facility] Partial Thromboplast Time 2018-09-26 16:11:00* Test Item Value Reference Range Interpretation Comments Activated Partial Thromboplast Time (test code = 92571-9) 34.3 23.8-35.5 [facility] [id number] 16:11:00* Test Item Value Reference Range Interpretation Comments Lactic Acid Level (test code = Lactic Acid Level) 16.4 4.5- 19.8 [facility]2019-[facility]29 22:22:00* Test Item Value Reference Range Interpretation Comments GLUBED (test code = GLUBED) 156 mg/dL 74-106 H Performed by certified slab miller operator at [facility] [id number] 22:14:00* Test Item Value Reference Range Interpretation Comments GLUBED (test code = GLUBED) 233 mg/dL 74-106 H Performed by certified slab miller operator at [facility]) URINALYSIS [id number] 21:02:00* Test Item Value Reference Range Interpretation Comments UA COLOR (test code = COLU) DARK YELLOW YELLOW A UA APPEARANCE (test code = APPU) SLIGHTLY CLOUDY CLEAR A UA GLUCOSE DIPSTICK (test code = DGLUU) >=500 mg/dL NEGATIVE A UA BILIRUBIN DIPSTICK (test code = BILU) NEGATIVE mg/dL NEGATIVE UA KETONE DIPSTICK (test code = KETU) 20 (Small) mg/dL NEGATIVE A UA SPECIFIC GRAVITY (test code = SGU) 1.020 1.001-1.035 UA BLOOD DIPSTICK (test code = PAT) Negative NEGATIVE UA PH DIPSTICK (test code = HALINA) 5.0 5.0-8.0 UA PROTEIN DIPSTICK (test code = PROU) Negative mg/dL NEGATIVE UA UROBILINIOGEN DIPSTICK (test code = URO) 4.0 (2+) mg/dL NEG ATIVE A UA NITRITE DIPSTICK (test code = SERGEY) NEGATIVE NEGATIVE UA LEUKOCYTE ESTERASE W REFLEX (test code = LEUUR) NEGATIVE NEG ATIVE UA WBC (test code = WBCU) 0-5 #/HPF 0-5 UA RBC (test code = RBCU) 0-2 #/HPF 0-5 UA EPITHELIAL CELLS (test code = EPIU) MOD per HPF FEW UA BACTERIA (test code = BACU) FEW #/HPF NONE A UA HYALINE CAST (test code = HYALU) 6-10 #/LPF 0-5 A UA MUCUS (test code = MUCU) FEW #/LPF FEW Urine Source? Clean CatchBASIC METABOLIC [id number] 20:20:00* Test Item Value Reference Range Interpretation Comments SODIUM (test code = NA) 132 mmol/L 136-145 L POTASSIUM (test code = K) 3.0 mmol/L 3.5-5.1 L CHLORIDE (test code = CL) 94.0 mmol/L 98-107 L CARBON DIOXIDE (test code = CO2) 29.0 mmol/L 21-32 N ANION GAP (test code = GAP) 12.0 10-20 N GLUCOSE (test code = GLU) 228 mg/dL 74-106 H BLOOD UREA NITROGEN (test code = BUN) 15 mg/dL 7-18 N GLOMERULAR FILTRATION RATE (test code = GFR) > 60 mL/min >=60 Estimated GFR by using Modified MDRD formula.Chronic kidney disease is defined as either kidney damageor GFR <60 mL/min/1.73 m2 for >3 months. CREATININE (test code = CREAT) 0.80 mg/dL 0.55-1.02 N Note change in reference range due to change in reagent. BUN/CREATININE RATIO (test code = BUN/CREA) 18.6 10-20 N CALCIUM (test code = CA) 8.1 mg/dL 8.5-10.1 L [id number] 20:20:00* Test Item Value Reference Range Interpretation Comments LIPASE (test code = LIP) 54 U/L 73.0-393.0 L [id number] 20:20:00* Test Item Value Reference Range Interpretation Comments TROPONIN-I (test code = TROPI) 0.036 ng/mL 0-0.045 N BASIC METABOLIC [id number] 20:09:00* Test Item Value Reference Range Interpretation Comments SODIUM (test code = NA) 132 mmol/L 136-145 L POTASSIUM (test code = K) 3.0 mmol/L 3.5-5.1 L CHLORIDE (test code = CL) 94.0 mmol/L 98-107 L CARBON DIOXIDE (test code = CO2) mmol/L 21-32 ANION GAP (test code = GAP) 10-20 GLUCOSE (test code = GLU) mg/dL 74-106 BLOOD UREA NITROGEN (test code = BUN) mg/dL 7-18 GLOMERULAR FILTRATION RATE (test code = GFR) mL/min >=60 CREATININE (test code = CREAT) mg/dL 0.55-1.02 BUN/CREATININE RATIO (test code = BUN/CREA) 10-20 CALCIUM (test code = CA) mg/dL 8.5-10.1 [id number] 20:09:00* Test Item Value Reference Range Interpretation Comments LIPASE (test code = LIP) U/L 73.0-393.0 [id number] 20:09:00* Test Item Value Reference Range Interpretation Comments TROPONIN-I (test code = TROPI) ng/mL 0-0.045 CBC W/AUTO [id number] 20:03:00* Test Item Value Reference Range Interpretation Comments WHITE BLOOD CELL (test code = WBC) 11.9 K/mm3 4.5-12.5 N RED BLOOD CELL (test code = RBC) 5.06 mill/mm3 3.7-5.2 N HEMOGLOBIN (test code = HGB) 12.6 gram/dL 11.5-15.5 N HEMATOCRIT (test code = HCT) 40.1 % 36.0-46.0 N MEAN CELL VOLUME (test code = MCV) 79.2 fL 80-98 L MEAN CELL HGB (test code = MCH) 24.9 picogram 27.0-33.0 L MEAN CELL HGB CONCETRATION (test code = MCHC) 31.4 gram/dL 33.0-36. 0 L RED CELL DISTRIBUTION WIDTH (test code = RDW) 15.2 % 11.6-16. 2 N RED CELL DISTRIBUTION WIDTH SD (test code = RDW-SD) 43.6 fL 37 .0-51.0 N PLATELET COUNT (test code = PLT) 212 K/mm3 150-450 N MEAN PLATELET VOLUME (test code = MPV) 11.2 fL 6.7-11.0 H NEUTROPHIL % (test code = NT%) 74.2 % 39.0-69.0 H IMMATURE GRANULOCYTE % (test code = IG%) 0.3 % 0.0-5.0 N LYMPHOCYTE % (test code = LY%) 17.7 % 25.0-55.0 L MONOCYTE % (test code = MO%) 7.5 % 0.0-10.0 N EOSINOPHIL % (test code = EO%) 0.1 % 0.0-5.0 N BASOPHIL % (test code = BA%) 0.2 % 0.0-1.0 N NUCLEATED RBC % (test code = NRBC%) 0.0 % 0-0 N NEUTROPHIL # (test code = NT#) 8.82 K/mm3 1.8-7.7 H IMMATURE GRANULOCYTE # (test code = IG#) 0.04 x10 3/uL 0-0.03 H LYMPHOCYTE # (test code = LY#) 2.11 K/mm3 1.0-5.0 N MONOCYTE # (test code = MO#) 0.89 K/mm3 0-0.8 H EOSINOPHIL # (test code = EO#) 0.01 K/mm3 0.0-0.5 N BASOPHIL # (test code = BA#) 0.02 K/mm3 0.0-0.2 N NUCLEATED RBC # (test code = NRBC#) 0.00 K/mm3 0.0-0.1 N MANUAL DIFF REQUIRED (test code = MDIFF) NO - XR CHEST 1 [id number] 19:18:00 FAX: Olman Aaron DO [place]: B St: PRE Name: BRYAN XIE [facility] : [birth year] Age/S: 68/F [address] [facility] [address] #: [id number] Loc: [place] [address] Phys: Olman Aaron DO Acct: [id number] Dis Date: Status: PRE ER PHONE #: [phone] Exam Date: 09/18/2018 1900 FAX #: [phone] Reason: Altered Mental Status EXAMS: CPT CODE: [id number] XR CHEST 1 V 53119 EXAM: Chest x-ray, one view; INFORMATION: Altered mental status; hypoglycemia; IMPRE SSION: 1. No evidence of active cardiopulmonary disease. 2. No c hange compared with a recent study from September 05, 2018. Left subclavia n pacemaker in place. at 1918 Reported and signed by: Jose M Clifton M.D. CC: Olman Aaron DO Technolog ist: Charli Fuller RT(R) Trnscrd Date/Time/By : 09/18/2018 (1917) : By: YovannyGRW Orig Print D/T: S: 09/18/2018 (192 1) PAGE 1 Signed Report US ABDOMEN COMPLETE [facility] [address] [address] Patient Name: BRYAN BOOTH MR #: [id number] : 1950 Age/Sex: 67/F Req #: [id number] Adm Physician: Ordered by: ABO ROMANO MD Report #: [id number] Location: US Room/Bed: Procedure: [id number] US/US ABDOMEN COMPLETE Exam Da te: Exam Time: REPORT STATUS: Signed PROCE DURE: ABDOMINAL ULTRASOUND COMPARISON: None. INDICATIONS: Abdomen Pain FINDINGS: Liver: 14.1 cm. Increased hepatic parenchymal echogeni city. No focal mass. Main portal vein: 0.8 cm. Hepatopedal flow. Ga llbladder: No echogenic calculi, gallbladder wall thickening, or pericholecys tic fluid. A 0.4 cm echogenic focus is noted in the anterior gallbladder wall that is non-shadowing and non-mobile. Common Bile Duct: 3.0 mm. No echogenic filling defect. Sonographic Laurent's sign: Negative. Right kidney: 9.4 cm. No solid or cystic mass, echogenic calculi, or hydronephrosis. Normal pa renchymal echogenicity. Left kidney: 8.7 cm. No solid or cystic mass, echogeni c calculi, or hydronephrosis. Normal parenchymal echogenicity. Focal well- circumscribed 2.5 x 2.3 x 2.3 cm anechoic cyst is present in the left kidney. Spleen: 7.9 cm. No focal mass. The pancreas and inferior vena cava were insufficiently visualized for comment secondary to overlying bowel gas. Inferior vena cava: Normal. Ascites: None. CONCLUSION: 1 . No acute sonographic abnormality. 2. Gallbladder polyp. Consultation with ge neral surgery may provide additional information for further management. 3. Hepatic steatosis. Dictated by: Char Angel M.D. on 12/11/2017 a t 9:21 Electronically approved by: Char Angel M.D. on 12/11/2017 at 9:2 1 Dictated By: CHAR ANGEL MD 0 Transcribed By: MARIA G on 12/11/17920 COPY TO: BAO ROMANO MD MAMMOGRAPHY DIGITAL SCR BILAT [place] [address] Patient Name: BRYAN BOOTH MR #: [id number] : 1950 Age/Sex: 67/F Req #: [id number] Adm Physician: Ordered by: BAO ROMANO MD Report #: [id number] Location: Room/Bed: Procedure: [id number] MG/MAMMOGRAPHY DIGITAL SCR BILA T Exam Date: 12/11/17 Exam Time: 09 REPORT S TATUS: Signed #[id number] - [id number] #BILATERAL DIGITAL SCREENING TONI MOGRAM WITH CAD: 12/11/2017 CLINICAL: Routine screening. No prior exams were available for comparison. Current study contains 4 films. There are sc attered fibroglandular elements in both breasts. Current study was also eval uated with a Computer Aided Detection (CAD) system. There are benign vascula r calcifications and calcifications in both breasts. No significant masses, calcifications, or other findings are seen in either breast. IMPRESSION: BENIGN There is no mammographic evidence of malignancy. A 1 year screening ma mmogram is recommended. The patient will be notified by letter of the results . Javon varela/penrad:12/28/2017 07:29:56 Electronics Engineering Technician: Martha SEGAL)(Capri), [facility] nt letter sent: Normal Exam Mammogram BI-RADS: 2 Benign Dictated By: JAVON HAGEN DO 8 Transcribed By: CAMILO on 12/28/17728 COPY TO: BAO ROMANO MD
== END 2020-05-12 11:10 ==
LOC: ER 09:07
DX: Z43.1 Encounter for attention to gastrostomy (principal); I10 Essential (primary) hypertension; E11.40 Type 2 diabetes mellitus with diabetic neuropathy, unspecified; E78.5 Hyperlipidemia, unspecified; I25.10 Atherosclerotic heart disease of native coronary artery without angina pectoris; K21.9 Gastro-esophageal reflux disease without esophagitis; F41.9 Anxiety disorder, unspecified; I69.354 Hemiplegia and hemiparesis following cerebral infarction affecting left non-dominant side; Z95.810 Presence of automatic (implantable) cardiac defibrillator
CPT/HCPCS: 74018; 99284

== ENCOUNTER 2020-05-15 12:48 | Emergency (ER) | payer MEDICARE, OTHER ==
[~2020-05-15] VITALS: Ht 134.6 cm; Wt 45.8 kg
--- NOTE | 2020-05-15 15:02 | Emergency Department Note ---
History of Present Illnes History of Present Illness Chief Complaint: General Medicine Complaints History of Present Illness This is a 69 year old female Patient in from [facility] with a feeding tube that was pulled out. Patient states that she does not know how it came out. The patient is here frequently for this. An intact 18F feeding tube is with the patient from the facility. No acute distress noted. VSS. Historian: [employer]/EMS Arrival Mode: National Care History limited by: condition of the patient Onset quality: sudden Timing of current episode: intermittent Chronicity: recurrent Relieving factors: none Exacerbating factors: none Associated symptoms: Reports denies other symptoms Past Medical/Family History Physician Review I have reviewed the patient's past medical and family history. Any updates have been documented here. Past Medical History Recent Fever: No Clinical Suspicion of Infectio: No New/Unexplained Change in Ment: No Past Medical History: Hypertension, Diabetes, CVA, Hypothyroidism, CAD, Kidney Stones, UTI's, Anemia, Anxiety, Depression, GERD, Hyperlipedemia Other Medical History: KIDNEY CYST DIABETIC NEUROPATHY DYSPHAGIA LEFT HEMIPARESIS ANGINA PECTORIS Past Surgical History: Pacer/AICD, Cataract Removal Other Surgery: BILATERAL URETHRAL STENTS G-TUBE Social History Smoking Cessation: Never Smoker Counseling Performed: No Alcohol Use: None Any Illegal Drug Use: No TB Exposure/Symptoms: No Physically hurt or threatened: No Family History Family history of heart diseas: No Other Last Tetanus: UTD Any Pre-Existing Lines (PICC,: No Review of Systems Review of Systems Constitutional: Reports no symptoms EENTM: Reports no symptoms Cardiovascular: Reports no symptoms Respiratory: Reports no symptoms Gastrointestinal: Reports as per HPI Genitourinary: Reports no symptoms Musculoskeletal: Reports no symptoms Integumentary: Reports no symptoms Neurological: Reports no symptoms Psychological: Reports no symptoms Endocrine: Reports no symptoms Hematological/Lymphatic: Reports no symptoms Physical Exam Related Data Allergies: Coded Allergies: No Known Allergies (Unverified , 08/24/19) Triage Vital Signs Vital Signs Date Time Temp Pulse Resp B/P (MAP) Pulse Ox O2 Delivery O2 Flow Rate FiO2 05/15/20 12:56 98.1 72 18 127/87 99 Room Air Vital signs reviewed: Yes Physical Exam CONSTITUTIONAL Constitutional: Present well-developed, Present well-nourished HENT HENT: Present normocephalic, Present atraumatic, Present oropharynx clear/moist, Present nose normal HENT L/R: Present left ext ear normal, Present right ext ear normal EYES Eyes: Reports PERRL, Reports conjunctivae normal NECK Neck: Present ROM normal PULMONARY Pulmonary: Present effort normal, Present breath sounds normal CARDIOVASCULAR Cardiovascular: Present regular rhythm, Present heart sounds normal, Present capillary refill normal, Present normal rate GASTROINTESTINAL Abdominal: Present soft, Present nontender, Present bowel sounds normal, Present other (white in g-tube stoma) GENITOURINARY Genitourinary: Present exam deferred SKIN Skin: Present warm, Present dry MUSCULOSKELETAL Musculoskeletal: Present ROM normal NEUROLOGICAL Neurological: Present alert, Present no gross motor or sensory deficits PSYCHOLOGICAL Psychological: Present mood/affect normal, Present judgement normal Procedures Feeding Tube Replacement Type of tube: gastrostomy Prior insertion site: clean Tube used for reinsertion: Bard Tube size (F): 20 Balloon size (mL): 6 Verification of placement: auscultation, other (aspiration of gastric juices) Tube secured by: tape/dressing (and abd binder) Patient tolerated procedure: well Assessment & Plan Medical Decision Making MDM replace g-tube Reassessment Reassessment dc back to [facility] Assessment & Plan Final Impression: (1) Gastrostomy tube dysfunction (2) Encounter for feeding tube placement Depart Disposition: HOME, SELF-CARE ([facility]) Last Vital Signs Date Time Temp Pulse Resp B/P (MAP) Pulse Ox O2 Delivery O2 Flow Rate FiO2 05/15/20 12:56 98.1 72 18 127/87 99 Room Air Home Meds Reported Medications Losartan Potassium (LOSARTAN POTASSIUM) 100 Mg Tablet, 100 MG PO DAILY 09/26/18 Gabapentin (GABAPENTIN) 100 Mg Capsule, 100 MG PO TID 09/26/18 [Eliquis] 2.5 MG No Conflict Check, 2.5 MG PO BID 09/26/18 Atorvastatin Calcium (ATORVASTATIN CALCIUM) 20 Mg Tablet, 20 MG PO DAILY 09/26/18 Isosorbide Mononitrate (ISOSORBIDE MONONITRATE) 10 Mg Tablet, 10 MG PO DAILY 09/26/18 Lisinopril (LISINOPRIL) 10 Mg Tablet, 10 MG PO DAILY 09/26/18 Venlafaxine Hcl (VENLAFAXINE HCL ER) 37.5 Mg Cap.er.24h, 37.5 MG PO DAILY 09/26/18 FANY MUSTAFA MD May 15, 2020 15:02
--- OUTSIDE RECORDS SUMMARY | 2020-05-17 16:13 | XMS REPORT | Continuity of Care Document ---
Author Author [facility] t Organization [facility] Address [address] [place] [address] Phone Unavailable Care Team Providers Care Marketing Development Representative Name Role Phone REBECA MOSES, N JOSE PCP Usman HAWKINS Attphys Unavailable ASHLEY MCKINLEY Attphys Unavailable ARABELLA HI Attphys Unavailable ROMANOCapri BERGER Attphys Unavailable ROMANOCapri BERGER Admphys Unavailable Payers Payer Name Policy Type Policy Number Effective Date Expiration Date S [facility] [employer] Medicare [id number] 2019 00:00:00 [facility] [employer] [id number] 2019 00:00:00 [facility] [id number] [facility] Medicare A & B [id number] 2017 00:00:00 [facility] Problems Condition Name Condition Details Condition Category Status Onset Date Resolution Date Last Treatment Date Treating Clinician Comments Source Hypomagnesemia Hypomagnesemia Problem Active [facility] Weakness Weakness Problem [facility] Gastrostomy tube dysfunction Problem Active [facility] Encounter for feeding tube placement Problem Active [facility] Allergies, Adverse Reactions, Alerts Allergy Name Allergy Type Status Severity Reaction(s) Onset Date Inacti ve Date Treating Clinician Comments Source No Known Allergies DA Active U 2020-05-11 00:00:00 [facility] No Known Allergies DA Active U 2019-08-23 00:00:00 [facility] No Known Allergies DA Active U 2018-09-18 00:00:00 [facility] No Known Allergies DA Active U 2018-07-12 00:00:00 [facility] No Known Allergies DA Active U 2018-07-07 00:00:00 [facility] No Known Contrast Allergies DA Active U 2005-04-25 00:00: 00 [facility] No Known Drug Allergies DA Active U 2005-04-25 00:00:00 [facility] No Known Food Allergies DA Active U 2005-04-25 00:00:00 [facility] POLLEN DA Active U 2005-04-25 00:00:00 [facility] Social History Social Habit Start Date Stop Date Quantity Comments Source Sex Assigned At 1950 00:00:00 1950 00:00:00 Female [facility] Medications Ordered Medication Name Filled Medication Name Start Date Stop Da te Current Medication? Ordering Clinician Indication Dosage Frequency Signature (SIG) Comments Components Source Atorvastatin Calcium Atorvastatin Calcium Yes 20 Daily [facility] Eliquis Eliquis Yes 2.5 Twice A Day [facility] Gabapentin Gabapentin Yes 100 Three Times A Day [facility] Isosorbide Mononitrate Isosorbide Mononitrate Yes 10 Daily [facility] Lisinopril Lisinopril Yes 10 Daily [facility] Losartan Potassium Losartan Potassium Yes 100 Da ebony [facility] Venlafaxine Hcl (Venlafaxine Hcl Er) 37.5 Mg CAP.ER.24 H Venlafaxine Hcl (Venlafaxine Hcl Er) 37.5 Mg CAP.ER.24H Yes 37.5 Daily [facility] Vital Signs Vital Name Observation Time Observation Value Comments Source Weight 2020-05-15 12:56:00 101 [lb_av] [facility] BMI (Body Mass Index) 2020-05-15 12:56:00 25.3 kg/m2 [facility] Weight 2020-05-12 08:38:00 101 [lb_av] [facility] BMI (Body Mass Index) 2020-05-12 08:38:00 25.3 kg/m2 [facility] Body Temperature 2019-11-08 20:05:00 98.4 [degF] [facility] Procedures Procedure Date / Time Performed Performing Clinician [facility] e [facility] GTUBE NO REVJ [facility] 2019-11-08 00:00:00 [facility] GTUBE NO REVJ [facility] 2019-08-24 00:00:00 [facility] Plan of Care Planned Activity Planned Date Details Comments Source Instructions GI Tube Care [facility] Encounters Start Date/Time End Date/Time Encounter Type Admission Type Attendi [facility] Facility Care Department Encounter ID Source 2020-05-15 13:20:00 2020-05-15 16:08:00 Departed Emergency Room [facility] [id number] [facility] dical Martelle 2020-05-12 09:07:00 2020-05-12 11:10:00 Departed Emergency Room [address] [facility] [id number] [facility] 2019-11-08 18:00:00 2019-11-08 22:10:00 Departed Emergency Room [address] [facility] [id number] [facility] 2019-08-24 13:11:00 2019-08-24 13:28:00 Departed Emergency Room [facility] [id number] [facility] 2019-03-20 12:35:00 2019-03-20 15:52:00 Departed Emergency Room 1 ARABELLA HI [facility] [id number] [facility] 2018-09-28 10:34:00 2018-10-03 15:56:00 Discharged Inpatient 1 ROSALINA [facility] [id number] [facility] 2017-12-11 08:00:00 2017-12-11 08:00:00 [facility]istered [facility] [id number] [facility] Results Test Description Test Time Test Comments Results Result Comments Source ABDOMEN-1VIEW (KUB) 2020-05-12 10:09:00 [facility] [address] [place] [address] Patient Name: BRYAN BOOTH MR #: [id number] : 1950 Age/Sex: 69/F Req #: [id number] Adm Physician: Ordered by: CODY HAWKINS DO Report #: [id number] Location: ER Room/Bed: Procedure: [id number] DX/ABDOMEN-1VIEW ([facility]) Exam Date: 05/12/20 Exam Time: [...] HAWKINS DO - CONT INJ LIBBY/ JEREMY/ MARY/ KP 2020-05-11 08:55:00 F AX: Camacho Jaffe [phone] [place]: St: REG -- Name: BRYAN BOOTH [facility] : 1950 Age/S: 69/F [address] [facility] Unit #: [id number] Loc: [place] [address] Phys: Camacho Jaffe MD Acct: [id number] Dis Date: Status: REG ER PHONE #: [phone] Exam Date: 05/11/2020 0840 FAX #: [phone] Reason: feeding tube replacement in ER EXAMS: CPT CODE: [id number] CONT INJ GS/ JEREMY/ JRebel/ GG [address] HISTORY: feeding tube replacement in ER TECHNIQUE: [...] device terminate in the right ventricle. Location: [facility] at 0855 Reported and signed by: Steven Vega MD CC: Camacho Jaffe MD Technologist: Kristina Trevino RT(R); Magdalene Singletary RT(R) Trnscrd Date/Time/By: 05/11/2020 (0855) : By: [email or web address] Orig Print D/T: S: 05/11/2020 (0876) PAGE 1 Signed Report ABDOMEN-1VIEW ([facility]) 2019-11-08 19:46:00 [place] [address] Patient Name: BRYAN BOOTH MR #: [id number] : 1950 Age/Sex: 69/F Req #: [id number] Adm Physician: Ordered by: ASHLEY MCKINLEY DO Report #: [id number] Location: ER Room/Bed: Procedure: [id number] DX/ABDOMEN-1VIEW ([facility]) Exam Date: Exam Time: REPORT STATUS: Signed EXAM: ABDOMEN-1VIEW ([facility]) DATE: 11/08/2019 6:49 PM INDICATION: PEG TUBE [...] 2019-08-23 16:14:00 F AX: Medhat Cisneros MD [phone] [place]: St: REG -- Name: BRYAN BOOTH [facility] : 1950 Age/S: 69/F [address] [facility] Unit #: [id number] Loc: [place] [address] Phys: Medhat Cisneros MD Acct: [id number] Dis Date: Status: [facility] ER PHONE #: [phone] Exam Date: 08/23/2019 1410 FAX #: [phone] Reason: g tube placement EXAMS: CPT CODE: [id number] CONT INJ GS/ DU/ JJ/ [place] [address] HISTORY: g tube placement TECHNIQUE: G-tube placement COMPARISON: None FINDINGS: Gastrostomy tube projects over the left upper abdomen. Contrast administered through the gastrostomy tube opacifies the gastric lumen. No intraperitoneal extravasation. Nonobstructive bowel gas pattern. Degenerative changes are present in the pelvis and spine. IMPRESSION: Gastrostomy tube is within the stomach lumen. Location: [facility] at 1614 Reported and signed by: Steven Vega MD CC: Medhat Cisneros MD Technologist: Gregoria Beckham RT(R); HORACIO COOPER RT(R) Trnscrd Date/Time/By: 08/23/2019 (1611) : By: [email or web address] Orig Print D/T: S: 08/23/2019 (6199) PAGE 1 Signed Report ABDOMEN-1VIEW ([facility]) 2019-03-20 13:42:00 [place] [address] Patient Name: BRYAN BOOTH MR #: [id number] : 1950 Age/Sex: 68/F Req #: [id number] Adm Physician: Ordered by: ASHLEY SEE SALES BRANCH MANAGER Report #: [id number] Location: ER Room/Bed: Procedure: [id number] DX/ABDOMEN-1VIEW ([facility]) Exam Date: 03/20/19 Exam Time: [...] 1:45 PM Dictated By: RASHAWN MAURICIO MD [id number] Transcribed By: KALANI on 03/20/19 1341 COPY TO: ASHLEY SEE NP Vitamin B6 Level 2018-10-06 05:50:00 Test Item Vitamin B6 Level (test code = 2900-9) 1.5 2.0-32.8 L Verified by repeat analysisThis test was developed and its performance gerald cteristicsdetermined by [facility]. It has not been cleared orapproved by the Food and Drug Administration.Performed at: [place] [address] [place], [place] [address] Director: Christa Vidal MD, Phone: [phone] Scott & White McLane Children's Medical CenterUrine Methylmalonic Klvf1423-24-71 06:54:00* Test Item Value Reference Range Interpretation Comments Urine Methylmalonic Acid (test code = 52843-6) 7.8 Reference Range:1.6 - 29.7 umol/LCH[facility]'S Medical CenterUr Methylmalonic Acid/Ycxpwzmqqk7200-80-53 06:54:00* Test Item Value Reference Range Interpretation Comments Ur Methylmalonic Acid/Creatinine (test code = 18706-2) 0.7 Reference Range: 0.5 - 3.4 umol/mmol cr Creatinine(Dog Beautician), U: 1.25 g/L Referen ce Range:0.30 - 3.00 g/LComments:A This test was developed and its performance c haracteristics determined by[facility]. It has not been cleared or approved by the Food and Drug AdministrationTesting performed by:[address] [id number]. Rajendra Carbajal [facility] Lxkthhs2723-82-61 16:03:00* Test Item Value Reference Range Interpretation Comments Bedside Glucose (test code = 87092-7) 192 70-120 H Meter ID: [id number] [facility] Glucose 2018-10-03 12:01:00* Test Item Value Reference Range Interpretation Comments Bedside Glucose (test code = 29964-7) 205 70-120 H Meter ID: [id number] Scott & White [facility]'s Medical CenterWhite Blood Count 2018-10-03 10:50:00* Test Item Value Reference Range Interpretation Comments White Blood Count (test code = 6690-2) 8.96 4.8-10.8 [facility] CenterRed Blood Bceho8041-41-40 10:50:00* Test Item Value Reference Range Interpretation Comments Red Blood Count (test code = 789-8) 3.41 3.6-5.1 L [facility] CenterHemoglobin2019-02-13 10:50:00* Test Item Value Reference Range Interpretation Comments Hemoglobin (test code = 16839-9) 8.6 12.0-16.0 L [facility] Medical CenterHematocrit2019-02-13 10:50:00* Test Item Value Reference Range Interpretation Comments Hematocrit (test code = 4544-3) 27.0 34.2-44.1 L [facility] CenterMean Corpuscular Cuwwei3055-44-90 10:50:00* Test Item Value Reference Range Interpretation Comments Mean Corpuscular Volume (test code = 787-2) 79.2 81-99 L [facility] CenterMean Corpuscular Xbyehkvpaw8776-83-96 10:50:00* Test Item Value Reference Range Interpretation Comments Mean Corpuscular Hemoglobin (test code = 785-6) 25.2 28-32 L [facility] CenterMean Corpuscular Hemoglobin Concent 2018-10-03 10:50:00* Test Item Value Reference Range Interpretation Comments Mean Corpuscular Hemoglobin Concent (test code = 786-4) 31.9 31-35 [facility] CenterRed Cell Distribution Pydwn9054-80-65 10:50:00* Test Item Value Reference Range Interpretation Comments Red Cell Distribution Width (test code = 81675-4) 16.8 11.7 -14.4 H [facility] CenterPlatelet Wfsdq1006-22-02 10:50:00* Test Item Value Reference Range Interpretation Comments Platelet Count (test code = 777-3) 248 140-360 [facility] CenterNeutrophils (%) (Auto)2018-10-03 10:50:00 * Test Item Value Reference Range Interpretation Comments Neutrophils (%) (Auto) (test code = 53928-3) 69.5 38.7-80.0 [facility] CenterLymphocytes (%) (Auto)2018-10-03 10:50:00 * Test Item Value Reference Range Interpretation Comments Lymphocytes (%) (Auto) (test code = 736-9) 20.8 18.0-39.1 [facility] CenterMonocytes (%) (Auto)2018-10-03 10:50:00* Test Item Value Reference Range Interpretation Comments Monocytes (%) (Auto) (test code = 5905-5) 6.9 4.4-11.3 [facility] CenterEosinophils (%) (Auto)2018-10-03 10:50:00 * Test Item Value Reference Range Interpretation Comments Eosinophils (%) (Auto) (test code = 713-8) 2.0 0.0-6.0 [facility] CenterBasophils (%) (Auto)2018-10-03 10:50:00* Test Item Value Reference Range Interpretation Comments Basophils (%) (Auto) (test code = 706-2) 0.4 0.0-1.0 [facility] CenterIM GRANULOCYTES %2018-10-03 10:50:00* Test Item Value Reference Range Interpretation Comments IM GRANULOCYTES % (test code = IM GRANULOCYTES %) 0.4 0.0- 1.0 [facility] CenterNeutrophils # (Auto)2018-10-03 10:50:00* Test Item Value Reference Range Interpretation Comments Neutrophils # (Auto) (test code = 751-8) 6.2 2.1-6.9 [facility] CenterLymphocytes # (Auto)2018-10-03 10:50:00* Test Item Value Reference Range Interpretation Comments Lymphocytes # (Auto) (test code = 17635-3) 1.9 1.0-3.2 [facility] CenterMonocytes # (Auto)2018-10-03 10:50:00* Test Item Value Reference Range Interpretation Comments Monocytes # (Auto) (test code = 742-7) 0.6 0.2-0.8 [facility] CenterEosinophils # (Auto)2018-10-03 10:50:00* Test Item Value Reference Range Interpretation Comments Eosinophils # (Auto) (test code = 711-2) 0.2 0.0-0.4 [facility] CenterBasophils # (Auto)2018-10-03 10:50:00* Test Item Value Reference Range Interpretation Comments Basophils # (Auto) (test code = 704-7) 0.0 0.0-0.1 [facility] CenterAbsolute Immature Granulocyte (auto 2018-10-03 10:50:00* Test Item Value Reference Range Interpretation Comments Absolute Immature Granulocyte (auto (tuan t code = Absolute Immature Granulocyte (auto) 0.04 0-0.1 [facility] CenterWhite Blood Zosht7955-36-86 10:50:00* Test Item Value Reference Range Interpretation Comments White Blood Count (test code = 6690-2) 8.96 4.8-10.8 [facility] CenterRed Blood Mwnnd6589-44-57 10:50:00* Test Item Value Reference Range Interpretation Comments Red Blood Count (test code = 789-8) 3.41 3.6-5.1 L [facility] CenterHemoglobin2019-02-13 10:50:00* Test Item Value Reference Range Interpretation Comments Hemoglobin (test code = 03075-2) 8.6 12.0-16.0 L [facility] CenterHematocrit2019-02-13 10:50:00* Test Item Value Reference Range Interpretation Comments Hematocrit (test code = 4544-3) 27.0 34.2-44.1 L [facility] CenterMean Corpuscular Rxqbqf6614-83-28 10:50:00* Test Item Value Reference Range Interpretation Comments Mean Corpuscular Volume (test code = 787-2) 79.2 81-99 L [facility] CenterMean Corpuscular Ycjwnihjao1997-10-81 10:50:00* Test Item Value Reference Range Interpretation Comments Mean Corpuscular Hemoglobin (test code = 785-6) 25.2 28-32 L [facility] CenterMean Corpuscular Hemoglobin Concent 2018-10-03 10:50:00* Test Item Value Reference Range Interpretation Comments Mean Corpuscular Hemoglobin Concent (test code = 786-4) 31.9 31-35 [facility] CenterRed Cell Distribution Txoen9647-35-05 10:50:00* Test Item Value Reference Range Interpretation Comments Red Cell Distribution Width (test code = 53689-7) 16.8 11.7 -14.4 H [facility] Medical CenterPlatelet Gnpmw5437-93-57 10:50:00* Test Item Value Reference Range Interpretation Comments Platelet Count (test code = 777-3) 248 140-360 [facility] CenterNeutrophils (%) (Auto)2018-10-03 10:50:00 * Test Item Value Reference Range Interpretation Comments Neutrophils (%) (Auto) (test code = 82777-5) 69.5 38.7-80.0 [facility] CenterLymphocytes (%) (Auto)2018-10-03 10:50:00 * Test Item Value Reference Range Interpretation Comments Lymphocytes (%) (Auto) (test code = 736-9) 20.8 18.0-39.1 [facility] CenterMonocytes (%) (Auto)2018-10-03 10:50:00* Test Item Value Reference Range Interpretation Comments Monocytes (%) (Auto) (test code = 5905-5) 6.9 4.4-11.3 [facility] CenterEosinophils (%) (Auto)2018-10-03 10:50:00 * Test Item Value Reference Range Interpretation Comments Eosinophils (%) (Auto) (test code = 713-8) 2.0 0.0-6.0 [facility] CenterBasophils (%) (Auto)2018-10-03 10:50:00* Test Item Value Reference Range Interpretation Comments Basophils (%) (Auto) (test code = 706-2) 0.4 0.0-1.0 [facility] CenterIM GRANULOCYTES %2018-10-03 10:50:00* Test Item Value Reference Range Interpretation Comments IM GRANULOCYTES % (test code = IM GRANULOCYTES %) 0.4 0.0- 1.0 [facility] CenterNeutrophils # (Auto)2018-10-03 10:50:00* Test Item Value Reference Range Interpretation Comments Neutrophils # (Auto) (test code = 751-8) 6.2 2.1-6.9 [facility] CenterLymphocytes # (Auto)2018-10-03 10:50:00* Test Item Value Reference Range Interpretation Comments Lymphocytes # (Auto) (test code = 43093-9) 1.9 1.0-3.2 [facility] CenterMonocytes # (Auto)2018-10-03 10:50:00* Test Item Value Reference Range Interpretation Comments Monocytes # (Auto) (test code = 742-7) 0.6 0.2-0.8 [facility] CenterEosinophils # (Auto)2018-10-03 10:50:00* Test Item Value Reference Range Interpretation Comments Eosinophils # (Auto) (test code = 711-2) 0.2 0.0-0.4 [facility] CenterBasophils # (Auto)2018-10-03 10:50:00* Test Item Value Reference Range Interpretation Comments Basophils # (Auto) (test code = 704-7) 0.0 0.0-0.1 [facility] CenterAbsolute Immature Granulocyte (auto 2018-10-03 10:50:00* Test Item Value Reference Range Interpretation Comments Absolute Immature Granulocyte (auto (tuan t code = Absolute Immature Granulocyte (auto) 0.04 0-0.1 [facility] Medical CenterMagnesium Macev1194-07-50 06:05:00* Test Item Value Reference Range Interpretation Comments Magnesium Level (test code = 34252-7) 1.4 1.3-2.1 [facility] CenterMaesium Ctasn1266-46-79 06:05:00* Test Item Value Reference Range Interpretation Comments Magnesium Level (test code = 62721-6) 1.4 1.3-2.1 [facility]odium Gjzay3321-58-09 05:57:00* Test Item Value Reference Range Interpretation Comments Sodium Level (test code = 2951-2) 130 136-145 L [facility] CenterPotassium Fpiim9105-84-79 05:57:00* Test Item Value Reference Range Interpretation Comments Potassium Level (test code = 2823-3) 3.5 3.5-5.1 [facility] CenterChloride Hqpth9092-86-63 05:57:00* Test Item Value Reference Range Interpretation Comments Chloride Level (test code = 2075-0) 96 98-107 L [facility] Medical CenterCarbon Dioxide Wmlad4937-26-73 05:57:00* Test Item Value Reference Range Interpretation Comments Carbon Dioxide Level (test code = 2028-9) 28 22-29 [facility] Medical CenterAnion Gif5707-39-41 05:57:00* Test Item Value Reference Range Interpretation Comments Anion Gap (test code = 73222-5) 9.5 8-16 [facility] CenterBlood Urea Ueopndyw1942-72-04 05:57:00* Test Item Value Reference Range Interpretation Comments Blood Urea Nitrogen (test code = 3094-0) 7 7-26 [facility] CenterCreatinine2019-02-13 05:57:00* Test Item Value Reference Range Interpretation Comments Creatinine (test code = 2160-0) 0.60 0.57-1.11 [facility] CenterBUN/Creatinine Rpxow3905-48-11 05:57:00* Test Item Value Reference Range Interpretation Comments BUN/Creatinine Ratio (test code = 3097-3) 12 6-25 [facility] Medical CenterEstimat Glomerular Filtration Rate 2018-10-03 05:57:00* Test Item Value Reference Range Interpretation Comments Estimat Glomerular Filtration Rate (test code = 574584491) > 60 >60 Ranges were taken from the National Kidney Disease Education Program and the [facility] Kidney Foundation literature.Reference ranges:60 or greater: Wdemxx83-05 ( for 3 consecutive months): Chronic kidney disease 15 or less: Kidney failureBaylor Scott & White McLane Children's Medical CenterGlucose Ivseu0536-13-29 05:57:00* Test Item Value Reference Range Interpretation Comments Glucose Level (test code = YIP3471) 147 74-118 H [facility] CenterCalcium Eabwr1133-99-58 05:57:00* Test Item Value Reference Range Interpretation Comments Calcium Level (test code = 33936-1) 8.4 8.4-10.2 [facility]odium Qkieu7018-35-09 05:57:00* Test Item Value Reference Range Interpretation Comments Sodium Level (test code = 2951-2) 130 136-145 L [facility] CenterPotassium Knuva3451-06-12 05:57:00* Test Item Value Reference Range Interpretation Comments Potassium Level (test code = 2823-3) 3.5 3.5-5.1 [facility] CenterChloride Pugih8107-66-83 05:57:00* Test Item Value Reference Range Interpretation Comments Chloride Level (test code = 2075-0) 96 98-107 L [facility] Medical CenterCarbon Dioxide Kuhsf6060-50-39 05:57:00* Test Item Value Reference Range Interpretation Comments Carbon Dioxide Level (test code = 2028-9) 28 22-29 [facility] Medical CenterAnion Gqp4295-50-44 05:57:00* Test Item Value Reference Range Interpretation Comments Anion Gap (test code = 07184-4) 9.5 8-16 [facility] CenterBlood Urea Poprgxpn6743-33-38 05:57:00* Test Item Value Reference Range Interpretation Comments Blood Urea Nitrogen (test code = 3094-0) 7 7-26 [facility] CenterCreatinine2019-02-13 05:57:00* Test Item Value Reference Range Interpretation Comments Creatinine (test code = 2160-0) 0.60 0.57-1.11 [facility] CenterBUN/Creatinine Jbxcf4550-19-55 05:57:00* Test Item Value Reference Range Interpretation Comments BUN/Creatinine Ratio (test code = 3097-3) 12 6-25 [facility] CenterEstimat Glomerular Filtration Rate 2018-10-03 05:57:00* Test Item Value Reference Range Interpretation Comments Estimat Glomerular Filtration Rate (test code = 942412161) > 60 >60 Ranges were taken from the National Kidney Disease Education Program and the [facility] Kid[facility] Foundation literature.Reference ranges:60 or greater: Nkaxqq95-37 ( for 3 consecutive months): Chronic kidney disease 15 or less: Kidney failureBaylor Scott & White McLane Children's Medical CenterGlucose Argwc8664-79-35 05:57:00* Test Item Value Reference Range Interpretation Comments Glucose Level (test code = ENO6313) 147 74-118 H [facility] CenterCalcium Btvsc3069-26-50 05:57:00* Test Item Value Reference Range Interpretation Comments Calcium Level (test code = 05076-3) 8.4 8.4-10.2 [facility] CenterBlood Axjzpah7665-71-27 05:52:00* Test Item Value Reference Range Interpretation Comments Blood Culture (test code = 35885112) NO GROWTH AFTER 5 DAYS, FINAL REPORT [facility] Zsxsgcz4115-96-44 05:52:00* Test Item Value Reference Range Interpretation Comments Blood Culture (test code = 00134437) NO GROWTH AFTER 5 DAYS, FINAL REPORT [facility] CenterTotal Tddtwuaqw6538-00-06 06:35:00* Test Item Value Reference Range Interpretation Comments Total Bilirubin (test code = 1975-2) 0.4 0.2-1.2 [facility] Medical CenterAspartate Amino Transf (AST/SGOT) 2018-10-02 06:35:00* Test Item Value Reference Range Interpretation Comments Aspartate Amino Transf (AST/SGOT) (test code = Aspartate Amino Transf (AST/SGOT)) 14 5-34 [facility] CenterAlanine Aminotransferase (ALT/SGPT) 2018-10-02 06:35:00* Test Item Value Reference Range Interpretation Comments Alanine Aminotransferase (ALT/SGPT) (test code = 1742-6) 8 0-55 [facility] Pfexwmk1255-81-98 06:35:00* Test Item Value Reference Range Interpretation Comments Total Protein (test code = 2885-2) 5.0 6.5-8.1 L [facility] CenterAlbumin2019-02-12 06:35:00* Test Item Value Reference Range Interpretation Comments Albumin (test code = 1751-7) 2.0 3.5-5.0 L [facility] CenterGlobulin2019-02-12 06:35:00* Test Item Value Reference Range Interpretation Comments Globulin (test code = 61709-2) 3.0 2.3-3.5 [facility] CenterAlbumin/Globulin Pupfj3452-70-52 06:35:00 * Test Item Value Reference Range Interpretation Comments Albumin/Globulin Ratio (test code = 1759-0) 0.7 0.8-2.0 L [facility] CenterAlkaline Kflikreltrf4588-57-65 06:35:00* Test Item Value Reference Range Interpretation Comments Alkaline Phosphatase (test code = 6768-6) 64 40-150 [facility] CenterTotal Gtyxdbkfu4521-31-73 06:35:00* Test Item Value Reference Range Interpretation Comments Total Bilirubin (test code = 1975-2) 0.4 0.2-1.2 [facility] CenterAspartate Amino Transf (AST/SGOT) 2018-10-02 06:35:00* Test Item Value Reference Range Interpretation Comments Aspartate Amino Transf (AST/SGOT) (test code = Aspartate Amino Transf (AST/SGOT)) 14 5-34 [facility] CenterAlanine Aminotransferase (ALT/SGPT) 2018-10-02 06:35:00* Test Item Value Reference Range Interpretation Comments Alanine Aminotransferase (ALT/SGPT) (test code = 1742-6) 8 0-55 [facility] CenterTotal Rpjjzqe9335-07-12 06:35:00* Test Item Value Reference Range Interpretation Comments Total Protein (test code = 2885-2) 5.0 6.5-8.1 L [facility] CenterAlbumin2019-02-12 06:35:00* Test Item Value Reference Range Interpretation Comments Albumin (test code = 1751-7) 2.0 3.5-5.0 L [facility] CenterGlobulin2019-02-12 06:35:00* Test Item Value Reference Range Interpretation Comments Globulin (test code = 52889-7) 3.0 2.3-3.5 [facility] CenterAlbumin/Globulin Pjvwl4676-80-61 06:35:00 * Test Item Value Reference Range Interpretation Comments Albumin/Globulin Ratio (test code = 1759-0) 0.7 0.8-2.0 L [facility] CenterAlkaline Fzewhhosgaf9964-32-57 06:35:00* Test Item Value Reference Range Interpretation Comments Alkaline Phosphatase (test code = 6768-6) 64 40-150 [facility] CenterVitamin B1 Qsirb9369-56-16 23:29:00* Test Item Value Reference Range Interpretation Comments Vitamin B1 Level (test code = 56009-7) 36.8 66.5-200.0 L This test was developed and its performance characteristicsdetermined by [employer] . It has not been cleared orapproved by the Food and Drug Administration.Perform ed at: [address] [id number] Dir lisa: Christa Vidal MD, Phone: [phone] Scott & White McLane Children's Medical CenterVitamin B1 Zuidl9613-84-47 23:29:00* Test Item Value Reference Range Interpretation Comments Vitamin B1 Level (test code = 43246-8) 36.8 66.5-200.0 L This test was developed and its performance characteristicsdetermined by [employer] . It has not been cleared orapproved by the Food and Drug Administration.Perform ed at: [address] [id number] Dir lisa: Christa Vidal MD, Phone: [phone] Scott & White McLane Children's Medical CenterClostridium Difficile Toxin A & T8098-37-04 10:34:00* Test Item Value Reference Range Interpretation Comments Clostridium Difficile Toxin A & B (test code = 780583030) NEGATIVE NEGATIVE Testing on stool aspirate specimens is outside electric spot welder claims since specime n type not validated on this assay.[facility] Clostridium Difficile Toxin A & U9758-33-48 10:34:00* Test Item Value Reference Range Interpretation Comments Clostridium Difficile Toxin A & B (test code = 797358152) NEGATIVE NEGATIVE Testing on stool aspirate specimens is outside electric spot welder claims since specime n type not validated on this assay.[facility] Hemoglobin A1c Mmaoqyh6743-01-30 05:51:00* Test Item Value Reference Range Interpretation Comments Hemoglobin A1c Percent (test code = Hemoglobin A1c Percent) 6.4 4.0-7.0 [facility] CenterHemoglobin A1c Qljomnp9841-35-56 05:51:00 * Test Item Value Reference Range Interpretation Comments Hemoglobin A1c Percent (test code = Hemoglobin A1c Percent) 6.4 4.0-7.0 [facility] CenterCHEST SINGLE (PORTABLE)2018-09-29 17:32:00 [facility] [address] [place] [address] Patient Name: BRYAN BOOTH MR #: [id number] : 1950 Age/Sex: 68/F Req #: [id number] Adm Physician: BAO ROMANO MD Ordered by: JOEL ROMANO MD Report #: [id number] Location: MED/SURG2 Room/Bed: [facility] Procedure: [id number] DX/CHEST SINGLE (PORTABLE) Exam Date: 09/29/18 Exam [...] TO: JOEL ROMANO MD Differential Total Cells Ctucwsf3196-34-97 06:49:00* Test Item Value Reference Range Interpretation Comments Differential Total Cells Counted (test code = Differen tial Total Cells Counted) 100 [facility] CenterNeutrophils % (Manual)2018-09-29 06:49:00 * Test Item Value Reference Range Interpretation Comments Neutrophils % (Manual) (test code = 12923-3) 90 40-74 H [facility] CenterBand Neutrophils %2018-09-29 06:49:00* Test Item Value Reference Range Interpretation Comments Band Neutrophils % (test code = 764-1) 1 [facility] CenterLymphocytes % (Manual)2018-09-29 06:49:00 * Test Item Value Reference Range Interpretation Comments Lymphocytes % (Manual) (test code = 737-7) 4 19-48 L [facility] CenterMonocytes % (Manual)2018-09-29 06:49:00* Test Item Value Reference Range Interpretation Comments Monocytes % (Manual) (test code = 744-3) 5 3.4-9.0 [facility] CenterPlatelet Qapuawzc0157-51-62 06:49:00* Test Item Value Reference Range Interpretation Comments Platelet Estimate (test code = 10814-3) ADEQUATE [facility] CenterPlatelet Morphology Drzimcg1582-28-58 06:49:00* Test Item Value Reference Range Interpretation Comments Platelet Morphology Comment (test code = 75211-1) NORMAL [facility] CenterAnisocytosis2019-02-09 06:49:00* Test Item Value Reference Range Interpretation Comments Anisocytosis (test code = 702-1) SLIGHT [facility] CenterMicrocytosis2019-02-09 06:49:00* Test Item Value Reference Range Interpretation Comments Microcytosis (test code = 741-9) SLIGHT [facility] CenterRed Cell Morphology Gfijujq1614-14-33 06:49:00* Test Item Value Reference Range Interpretation Comments Red Cell Morphology Comment (test code = 6742-1) ABNORMAL [facility] CenterDifferential Total Cells Counted 2018-09-29 06:49:00* Test Item Value Reference Range Interpretation Comments Differential Total Cells Counted (test code = Differconor tial Total Cells Counted) 100 [facility] CenterNeutrophils % (Manual)2018-09-29 06:49:00 * Test Item Value Reference Range Interpretation Comments Neutrophils % (Manual) (test code = 16176-1) 90 40-74 H [facility] CenterBand Neutrophils %2018-09-29 06:49:00* Test Item Value Reference Range Interpretation Comments Band Neutrophils % (test code = 764-1) 1 [facility] CenterLymphocytes % (Manual)2018-09-29 06:49:00 * Test Item Value Reference Range Interpretation Comments Lymphocytes % (Manual) (test code = 737-7) 4 19-48 L [facility] CenterMonocytes % (Manual)2018-09-29 06:49:00* Test Item Value Reference Range Interpretation Comments Monocytes % (Manual) (test code = 744-3) 5 3.4-9.0 [facility] CenterPlatelet Jeewioez8163-07-92 06:49:00* Test Item Value Reference Range Interpretation Comments Platelet Estimate (test code = 96940-7) ADEQUATE [facility] CenterPlatelet Morphology Xboxsjp4281-55-81 06:49:00* Test Item Value Reference Range Interpretation Comments Platelet Morphology Comment (test code = 54901-2) NORMAL [facility] CenterAnisocytosis2019-02-09 06:49:00* Test Item Value Reference Range Interpretation Comments Anisocytosis (test code = 702-1) SLIGHT [facility] CenterMicrocytosis2019-02-09 06:49:00* Test Item Value Reference Range Interpretation Comments Microcytosis (test code = 741-9) SLIGHT [facility] CenterRed Cell Morphology Potemoc7512-89-94 06:49:00* Test Item Value Reference Range Interpretation Comments Red Cell Morphology Comment (test code = 6742-1) ABNORMAL [facility] CenterThyroid Stimulating Hormone (TSH) 2018-09-28 07:06:00* Test Item Value Reference Range Interpretation Comments Thyroid Stimulating Hormone (TSH) (test code = 10397-7) 0.082 0.350-4.940 L [facility] CenterThyroid Stimulating Hormone (TSH) 2018-09-28 07:06:00* Test Item Value Reference Range Interpretation Comments Thyroid Stimulating Hormone (TSH) (test code = 27883-3) 0.082 0.350-4.940 L [facility] CenterTriglycerides Uemle1550-86-96 06:43:00* Test Item Value Reference Range Interpretation Comments Triglycerides Level (test code = 2571-8) 76 0-149 [facility] CenterCholesterol Rqfyr6659-83-34 06:43:00* Test Item Value Reference Range Interpretation Comments Cholesterol Level (test code = 2093-3) 84 0-199 Less than 200 mg/dL Low Myqn342 - 239 mg/dL Borderline Acpp290 m g/dl and greater High Risk [facility] CenterLDL Pgqrpaihpac1552-32-65 06:43:00* Test Item Value Reference Range Interpretation Comments LDL Cholesterol (test code = 2089-1) 37 60-130 L [facility] CenterHDL Uzfhgocrgxg4942-22-68 06:43:00* Test Item Value Reference Range Interpretation Comments HDL Cholesterol (test code = 2085-9) 32 40-60 L [facility] CenterCholesterol/HDL Jdkmo0947-68-37 06:43:00 * Test Item Value Reference Range Interpretation Comments Cholesterol/HDL Ratio (test code = 9830-1) 2.6 3.0-3.6 L [facility] CenterTriglycerides Mgcnf3487-72-60 06:43:00* Test Item Value Reference Range Interpretation Comments Triglycerides Level (test code = 2571-8) 76 0-149 [facility] CenterCholesterol Xhmty6338-96-38 06:43:00* Test Item Value Reference Range Interpretation Comments Cholesterol Level (test code = 2093-3) 84 0-199 Less than 200 mg/dL Low Sqpj993 - 239 mg/dL Borderline Bifg371 m g/dl and greater High Risk [facility] CenterLDL Snqcicexlkh1786-19-63 06:43:00* Test Item Value Reference Range Interpretation Comments LDL Cholesterol (test code = 2089-1) 37 60-130 L [facility] CenterHDL Cayfhnjfxfq9065-36-31 06:43:00* Test Item Value Reference Range Interpretation Comments HDL Cholesterol (test code = 2085-9) 32 40-60 L [facility] CenterCholesterol/HDL Yyxmo2762-26-22 06:43:00 * Test Item Value Reference Range Interpretation Comments Cholesterol/HDL Ratio (test code = 9830-1) 2.6 3.0-3.6 L [facility] CenterRapid Plasma Dgwcto4854-27-17 05:24:00* Test Item Value Reference Range Interpretation Comments Rapid Plasma Reagin (test code = 93883-5) Non Reactive Non Reactive Performed at: [facility] [id number] Director: Eren Lord MD, Phone: [phone] Scott & [facility] Children's Medical CenterRapid Plasma Jxctij4753-62-54 05:24:00* Test Item Value Reference Range Interpretation Comments Rapid Plasma Reagin (test code = 20630-5) Non Reactive Non Reactive Performed at: [facility] [id number] Director: Eren Lord MD, Phone: [phone] Scott & White McLane Children's Medical CenterVitamin B12 Xhyey1819-02-87 17:04:00* Test Item Value Reference Range Interpretation Comments Vitamin B12 Level (test code = 89945-8) 268 213-816 [facility] CenterVitamin B12 Tinjp6785-90-24 17:04:00* Test Item Value Reference Range Interpretation Comments Vitamin B12 Level (test code = 59719-2) 574 297-390 [facility] CenterFolate2019-02-07 16:58:00* Test Item Value Reference Range Interpretation Comments Folate (test code = 2284-8) 10.6 7.0-15.4 [facility] CenterFolate2019-02-07 16:58:00* Test Item Value Reference Range Interpretation Comments Folate (test code = 2284-8) 10.6 7.0-15.4 [facility] CenterMODIFIED BA. UWCCRHD2358-30-65 13:52:00 [facility] [address] [address] Patient Name: BRYAN BOOTH MR #: [id number] : 2 Age/Sex: 68/F Req #: [id number] Adm Physician: BAO ROMANO MD Ordered by: CODY MACKAY MD Report #: [id number] Location: [facility] Room/Bed: [place] [address] Procedure: [id number] D X/MODIFIED BA. SWALLOW Exam Date: 09/27/18 [...] and honey thick liquids. Refer to s [facility] pathology report for further details and recommendations. Signed by: Dr. Sailaja Perez M.D. on 09/27/2018 1:54 PM Dictated By: SAILAJA PEREZ MD 1353 Transc ribed By: KALANI on 09/27/18 1351 COPY TO: CODY MACKAY MD B- Type Natriuretic Yvgcgfo1615-90-54 16:34:00* Test Item Value Reference Range Interpretation Comments B-Type Natriuretic Peptide (test code = 43784-6) 23.2 0-100 [facility] CenterB-Type Natriuretic Suvixht9843-35-37 16:34:00* Test Item Value Reference Range Interpretation Comments B-Type Natriuretic Peptide (test code = 92828-3) 23.2 0-100 [facility] CenterCHEST SINGLE (PORTABLE)2018-09-26 16:29:00 [facility] [address] [place] [address] Patient Name: BRYAN BOOTH MR #: [id number] : 1950 Age/Sex: 68/F Req #: [id number] Adm Physician: Ordered by: AURELIA DOMINGUEZ [employer] MANAGER Report #: [id number] Location: ER Room/Bed: Procedure: [id number] D X/CHEST SINGLE (PORTABLE) Exam Date: 09/26/18 [...] on 09/26/18 1631 COPY TO: AURELIA DOMINGUEZ [employer] MANAGER Urine MRU5892-77-19 16:26:00* Test Item Value Reference Range Interpretation Comments Urine WBC (test code = 5821-4) NONE 0-5 [facility] CenterUrine GOO9512-12-13 16:26:00* Test Item Value Reference Range Interpretation Comments Urine RBC (test code = 54461-1) NONE 0-5 [facility] CenterUrine Jwhvlvfv2424-36-37 16:26:00* Test Item Value Reference Range Interpretation Comments Urine Bacteria (test code = 33031-2) MANY NONE H [facility] CenterUrine Epithelial Tmpri0531-45-07 16:26:00 * Test Item Value Reference Range Interpretation Comments Urine Epithelial Cells (test code = 75259-4) FEW NONE [facility] CenterUrine Transitional Epithelial Cells 2018-09-26 16:26:00* Test Item Value Reference Range Interpretation Comments Urine Transitional Epithelial Cells (test code = 8249-5) MODERATE NONE H [facility] CenterUrine CDS3224-70-07 16:26:00* Test Item Value Reference Range Interpretation Comments Urine WBC (test code = 5821-4) NONE 0-5 [facility] CenterUrine ZNE3930-01-93 16:26:00* Test Item Value Reference Range Interpretation Comments Urine RBC (test code = 13553-2) NONE 0-5 [facility] CenterUrine Japbfcdz6320-67-63 16:26:00* Test Item Value Reference Range Interpretation Comments Urine Bacteria (test code = 04550-5) MANY NONE H [facility] CenterUrine Epithelial Zevko9512-30-53 16:26:00 * Test Item Value Reference Range Interpretation Comments Urine Epithelial Cells (test code = 15595-3) FEW NONE [facility] CenterUrine Transitional Epithelial Cells 2018-09-26 16:26:00* Test Item Value Reference Range Interpretation Comments Urine Transitional Epithelial Cells (test code = 8249-5) MODERATE NONE H [facility] CenterCreatine Kinase NK4959-60-91 16:25:00* Test Item Value Reference Range Interpretation Comments Creatine Kinase MB (test code = 21704-8) 0.70 0-5.0 [facility] CenterTroponin S4294-88-75 16:25:00* Test Item Value Reference Range Interpretation Comments Troponin I (test code = EQF3937) 0.026 0-0.300 [facility] CenterCreatine Kinase TA6286-45-74 16:25:00* Test Item Value Reference Range Interpretation Comments Creatine Kinase MB (test code = 79690-7) 0.70 0-5.0 [facility] CenterTroponin W0758-02-29 16:25:00* Test Item Value Reference Range Interpretation Comments Troponin I (test code = QYQ1252) 0.026 0-0.300 [facility] CenterCreatine Zesnyv7709-57-45 16:23:00* Test Item Value Reference Range Interpretation Comments Creatine Kinase (test code = 2157-6) 28 29-168 L [facility] CenterAmylase Xyaka1276-14-81 16:23:00* Test Item Value Reference Range Interpretation Comments Amylase Level (test code = 1798-8) 57 25-125 [facility] CenterLipase2019-02-06 16:23:00* Test Item Value Reference Range Interpretation Comments Lipase (test code = 3040-3) 39 8-78 [facility] CenterCreatine Bzgtzy0806-41-79 16:23:00* Test Item Value Reference Range Interpretation Comments Creatine Kinase (test code = 2157-6) 28 29-168 L [facility] CenterAmylase Ncbro5066-93-08 16:23:00* Test Item Value Reference Range Interpretation Comments Amylase Level (test code = 1798-8) 57 25-125 [facility] CenterLipase2019-02-06 16:23:00* Test Item Value Reference Range Interpretation Comments Lipase (test code = 3040-3) 39 8-78 [facility] CenterUrine Drwnu1476-16-53 16:12:00* Test Item Value Reference Range Interpretation Comments Urine Color (test code = 5778-6) STRAW YELLOW [facility] CenterUrine Kwqeyfn9049-38-41 16:12:00* Test Item Value Reference Range Interpretation Comments Urine Clarity (test code = 55995-9) SL CLOUDY CLEAR [facility] CenterUrine Specific Rbgkyvo7225-06-55 16:12:00 * Test Item Value Reference Range Interpretation Comments Urine Specific [place] (test code = 5811-5) 1.025 1.010-1.02 5 [facility] CenterUrine yU0567-81-70 16:12:00* Test Item Value Reference Range Interpretation Comments Urine pH (test code = 86953-5) 5 5-7 [facility] CenterUrine Leukocyte Ylsowkkr5646-77-48 16:12:00* Test Item Value Reference Range Interpretation Comments Urine Leukocyte Esterase (test code = 5799-2) TRACE NEGATIVE H [facility] CenterUrine Sqgqabd1715-56-07 16:12:00* Test Item Value Reference Range Interpretation Comments Urine Nitrite (test code = 55032-5) NEGATIVE NEGATIVE [facility] CenterUrine Bhjficm1993-78-54 16:12:00* Test Item Value Reference Range Interpretation Comments Urine Protein (test code = 5804-0) 1+ NEGATIVE H [facility] CenterUrine Glucose (UA)2018-09-26 16:12:00* Test Item Value Reference Range Interpretation Comments Urine Glucose (UA) (test code = 2349-9) NEGATIVE NEGATIVE [facility] CenterUrine Mwyrqpn1778-14-46 16:12:00* Test Item Value Reference Range Interpretation Comments Urine Ketones (test code = 41289-9) TRACE NEGATIVE H [facility] CenterUrine Tonbbmexndpd7014-59-98 16:12:00* Test Item Value Reference Range Interpretation Comments Urine Urobilinogen (test code = 83556-0) 4 0.2-1 H [facility] CenterUrine Fkxkhlmyl0667-91-24 16:12:00* Test Item Value Reference Range Interpretation Comments Urine Bilirubin (test code = 1978-6) 2+ NEGATIVE H [facility] CenterUrine Kbezf6883-56-28 16:12:00* Test Item Value Reference Range Interpretation Comments Urine Blood (test code = 01907-0) NEGATIVE NEGATIVE [facility] CenterUrine Smygu6463-10-87 16:12:00* Test Item Value Reference Range Interpretation Comments Urine Color (test code = 5778-6) STRAW YELLOW [facility] CenterUrine Ugxzdwt5693-06-88 16:12:00* Test Item Value Reference Range Interpretation Comments Urine Clarity (test code = 76873-2) SL CLOUDY CLEAR [facility] CenterUrine Specific Ypbxprx2631-62-13 16:12:00 * Test Item Value Reference Range Interpretation Comments Urine Specific [place] (test code = 5811-5) 1.025 1.010-1.02 5 [facility] CenterUrine bV8646-65-21 16:12:00* Test Item Value Reference Range Interpretation Comments Urine pH (test code = 56856-6) 5 5-7 [facility] CenterUrine Leukocyte Pgetofij6489-52-84 16:12:00* Test Item Value Reference Range Interpretation Comments Urine Leukocyte Esterase (test code = 5799-2) TRACE NEGATIVE H [facility] Ftpupeq0505-44-88 16:12:00* Test Item Value Reference Range Interpretation Comments Urine Nitrite (test code = 15800-9) NEGATIVE NEGATIVE [facility] Euqqhtu5802-31-03 16:12:00* Test Item Value Reference Range Interpretation Comments Urine Protein (test code = 5804-0) 1+ NEGATIVE H [facility] Center[facility] Glucose (UA)2018-09-26 16:12:00* Test Item Value Reference Range Interpretation Comments Urine Glucose (UA) (test code = 2349-9) NEGATIVE NEGATIVE [facility] Qaziibe7937-07-77 16:12:00* Test Item Value Reference Range Interpretation Comments Urine Ketones (test code = 92746-8) TRACE NEGATIVE H [facility] Fdjtgcpcgbrq0077-02-63 16:12:00* Test Item Value Reference Range Interpretation Comments Urine Urobilinogen (test code = 98887-2) 4 0.2-1 H [facility] Gsaokxcnv0689-05-85 16:12:00* Test Item Value Reference Range Interpretation Comments Urine Bilirubin (test code = 1978-6) 2+ NEGATIVE H [facility] Nites6331-95-68 16:12:00* Test Item Value Reference Range Interpretation Comments Urine Blood (test code = 18736-5) NEGATIVE NEGATIVE [facility] CenterAct[facility] Partial Thromboplast Time 2018-09-26 16:11:00* Test Item Value Reference Range Interpretation Comments Activated Partial Thromboplast Time (test code = 46180-8) 34.3 23.8-35.5 [facility] CenterLactic Acid Qqwib3189-33-02 16:11:00* Test Item Value Reference Range Interpretation Comments Lactic Acid Level (test code = Lactic Acid Level) 16.4 4.5- 19.8 [facility] CenterAct[facility] Partial Thromboplast Time 2018-09-26 16:11:00* Test Item Value Reference Range Interpretation Comments Activated Partial Thromboplast Time (test code = 86298-7) 34.3 23.8-35.5 [facility] CenterLactic Acid Prgjr4194-03-31 16:11:00* Test Item Value Reference Range Interpretation Comments Lactic Acid Level (test code = Lactic Acid Level) 16.4 4.5- 19.8 [facility] CenterGLUBED2019-01-29 22:22:00* Test Item Value Reference Range Interpretation Comments GLUBED (test code = GLUBED) 156 mg/dL 74-106 H Performed by certified coat operator at [facility] QNYCUN1504-01-70 22:14:00* Test Item Value Reference Range Interpretation Comments GLUBED (test code = GLUBED) 233 mg/dL 74-106 H Performed by certified coat operator at [facility] URINALYSIS XLDXKXQJ9309-22-53 21:02:00* Test Item Value Reference Range Interpretation [...] #/LPF FEW Urine Source? Clean CatchBASIC METABOLIC [id number] 20:20:00* Test Item Value Reference Range Interpretation [...] code = CA) 8.1 mg/dL 8.5-10.1 L FSWKIZ5604-06-01 20:20:00* Test Item Value Reference Range Interpretation Comments LIPASE (test code = LIP) 54 U/L 73.0-393.0 L [id number]-W5546-18-29 20:20:00* Test Item Value Reference Range Interpretation Comments TROPONIN-I (test code = TROPI) 0.036 ng/mL 0-0.045 N BASIC METABOLIC [id number] 20:09:00* Test Item Value Reference Range Interpretation [...] CALCIUM (test code = CA) mg/dL 8.5-10.1 UMFNYO0542-11-50 20:09:00* Test Item Value Reference Range Interpretation Comments LIPASE (test code = LIP) U/L 73.0-393.0 [id number]-D3341-96-29 20:09:00* Test Item Value Reference Range Interpretation Comments TROPONIN-I (test code = TROPI) ng/mL 0-0.045 CBC W/AUTO KRYJ8540-85-20 20:03:00* Test Item Value Reference Range Interpretation [...] = MDIFF) NO - XR CHEST 1 [id number] 19:18:00 FAX: Olman Aaron DO [place]: B St: PRE Name: BRYAN XIE [facility] : [birth year] Age/S: 68/F [address] [facility] Unit #: [id number] Loc: [place] [address] Phys: Olman Aaron DO Acct: [id number] Dis Date: Status: PRE ER PHONE #: [phone] Exam Date: 09/18/2018 1900 FAX #: [phone] Reason: Altered Mental Status EXAMS: CPT CODE: [id number] XR CHEST 1 V 36266 EXAM: Chest x-ray, one view; INFORMATION: Altered [...] COMPLETE [facility] [address] [address] Patient Name: BRYAN BOOTH MR #: [id number] : 1950 Age/Sex: 67/F Req #: [id number] Adm Physician: Ordered by: BAO ROMANO MD Report #: [id number] Location: US Room/Bed: Procedure: [id number] US/US ABDOMEN COMPLETE Exam Da te: Exam [...] BAO ROMANO MD MAMMOGRAPHY DIGITAL SCR BILAT [place] [address] Patient Name: BRYAN BOOTH MR #: [id number] : 1950 Age/Sex: 67/F Req #: [id number] Adm Physician: Ordered by: BAO ROMANO MD Report #: [id number] Location: Room/Bed: Procedure: [id number] MG/MAMMOGRAPHY DIGITAL SCR BILA T Exam Date: 12/11/17 Exam Time: 09 REPORT S TATUS: Signed #[id number] - MGSCRBIL #BILATERAL DIGITAL SCREENING TONI MOGRAM [...] of the results . Javon varela/penrad:12/28/2017 07:29:56 Casing In Line Feeder: Martha SEGAL)(Capri), [facility] nt letter sent: Normal Exam Mammogram BI-RADS: 2 Benign Dictated By: JAVON HAGEN DO 8 Transcribed By: CAMILO on 12/28/17728 COPY TO: BAO ROMANO MD
== END 2020-05-15 16:08 | disposition home or self-care (01) ==
LOC: ER 13:20
DX: Z43.1 Encounter for attention to gastrostomy (principal); I10 Essential (primary) hypertension; E11.40 Type 2 diabetes mellitus with diabetic neuropathy, unspecified; E78.5 Hyperlipidemia, unspecified; I25.10 Atherosclerotic heart disease of native coronary artery without angina pectoris; F41.9 Anxiety disorder, unspecified; K21.9 Gastro-esophageal reflux disease without esophagitis; I69.354 Hemiplegia and hemiparesis following cerebral infarction affecting left non-dominant side
CPT/HCPCS: 99283

== ENCOUNTER 2021-05-15 22:22 | Emergency (ER) | payer MEDICARE, OTHER ==
[~2021-05-15] VITALS: Ht 134.6 cm; Wt 45.8 kg
[2021-05-15] MEDS ORDERED: DIATRIZOATE MEGL/DIATRIZOA SOD 30 ML BTL PO ONE (22:52)
[2021-05-15 23:32] VITALS: BP 133/60
== END 2021-05-15 23:03 | disposition home or self-care (01) ==
LOC: ER 22:34
DX: Z43.1 Encounter for attention to gastrostomy (principal); I69.391 Dysphagia following cerebral infarction; I69.354 Hemiplegia and hemiparesis following cerebral infarction affecting left non-dominant side; E78.5 Hyperlipidemia, unspecified; Z95.810 Presence of automatic (implantable) cardiac defibrillator; I10 Essential (primary) hypertension; E11.9 Type 2 diabetes mellitus without complications
CPT/HCPCS: 74018; 99282